=== PATIENT | male | born 1955 | race Two or more races ===

== ENCOUNTER 2020-09-07 09:42 | Outpatient (REF) | payer MEDICARE, MEDICAID, SELFPAY ==
[2020-09-07 10:35] LABS: MANUAL DIFF FLAG NO
[2020-09-07 10:45] LABS: Basophils Percent Auto 0.6 % (0-2); Eosinophils Absolute Auto 0.2 X10*3/uL (0.0-0.4); Eosinophils Percent Auto 3.2 % (0-4); Hematocrit 47.8 % (42-52); Hemoglobin 15.3 g/dl (14.0-18.0); Imm Gran Abs Auto 0.02 X10*3/uL (0.00-0.03); Imm Gran Pct Auto 0.4 % (0.0-0.4); Lymphocytes Absolute Auto 0.9 X10*3/uL (1.2-4.9); Mean Corpuscular Hemoglobin 27.8 pg (27.0-33.0); Mean Corpuscular Volume 86.8 fL (80-98); Mean Platelet Volume 9.9 fL (9.4-12.4); Monocytes Absolute Auto 0.4 X10*3/uL (0.1-1.2); Monocytes Percent Auto 8.2 % (2-11); Neutrophils Absolute Auto 3.9 X10*3/uL (2.0-8.3); Neutrophils Percent Auto 71.6 % (45-73); Platelet Count 168 X10*3/uL (160-400); Red Blood Count 5.51 X10*6/uL (4.60-5.80); Red Cell Distribution Width 12.9 % (11.0-16.0); White Blood Count 5.4 X10*3/uL (4.8-10.8)
[2020-09-07 11:47] LABS: Folate 9.1 ng/mL (> or = 4.0); Vitamin B12 320 pg/mL (200-900)
[2020-09-07 11:58] LABS: Alanine Aminotransferase 17 U/L (0-40); Albumin Level 4.2 g/dL (3.5-5.0); Alkaline Phosphatase 88 U/L (39-117); Anion Gap 13 (12-20); Aspartate Amino Transferase 16 U/L (5-37); Bilirubin Total 0.5 mg/dL (0.0-1.0); Blood Urea Nitrogen 22 mg/dL (9-16); Calcium 9.3 mg/dL (8.4-10.2); Carbon Dioxide 29 mmol/L (22-29); Chloride 105 mmol/L (96-108); Cholesterol 132 mg/dL; Estimated Glomerular Filt Rate > 60; Glucose Random 171 mg/dL (60-115); HDL Cholesterol 51 mg/dL; Iron 68 mcg/dL (45-160); LDL Cholesterol Calculated 66 mg/dl; Percent Iron Saturation 19 % (15-50); Potassium 4.7 mmol/l (3.3-5.1); Sodium 142 mmol/L (135-145); Total Iron Binding Capacity 358 mcg/dL (228-428); Total Protein 6.2 g/dL (6.5-8.0); Triglycerides 76 mg/dL; Unsaturated Iron Binding 290 ug/dL
[2020-09-07 11:59] LABS: Ferritin 10 ng/mL (20-250)
== END 2020-09-07 09:43 | disposition home or self-care (01) ==
LOC: HO.LAB 09:42
PROVIDERS: PCP Internal Medicine; Visit Provider Internal Medicine
DX: E11.9 Type 2 diabetes mellitus without complications (principal); E78.00 Pure hypercholesterolemia, unspecified; D50.9 Iron deficiency anemia, unspecified
CPT/HCPCS: 36415; 80053; 80061; 82607; 82728; 82746; 83540; 85025

== ENCOUNTER 2020-10-27 06:10 | Outpatient (REF) | payer MEDICARE, MEDICAID, SELFPAY ==
[2020-10-27 07:51] LABS: Alanine Aminotransferase 11 U/L (0-40); Albumin Level 4.4 g/dL (3.5-5.0); Alkaline Phosphatase 78 U/L (39-117); Anion Gap 16 (12-20); Aspartate Amino Transferase 14 U/L (5-37); Bilirubin Total 0.6 mg/dL (0.0-1.0); Blood Urea Nitrogen 18 mg/dL (9-16); Calcium 9.1 mg/dL (8.4-10.2); Carbon Dioxide 24 mmol/L (22-29); Chloride 105 mmol/L (96-108); Cholesterol 107 mg/dL; Estimated Glomerular Filt Rate > 60; Glucose Fasting 107 mg/dL (60-99); HDL Cholesterol 48 mg/dL; LDL Cholesterol Calculated 48 mg/dl; Potassium 4.4 mmol/l (3.3-5.1); Sodium 141 mmol/L (135-145); Total Protein 6.6 g/dL (6.5-8.0); Triglycerides 58 mg/dL
[2020-11-01 13:58] LABS: Fructosamine 248 umol/L (205-285)
== END 2020-10-27 06:11 | disposition home or self-care (01) ==
LOC: HO.LAB 06:10
PROVIDERS: PCP Internal Medicine; Visit Provider Internal Medicine Endocrinology, Diabetes & Metabolism
DX: E11.9 Type 2 diabetes mellitus without complications (principal)
CPT/HCPCS: 80053; 80061; 82985

== ENCOUNTER → 2020-10-28 09:48 | Outpatient (BNVA) | payer MEDICARE, MEDICAID, SELFPAY | PROVIDERS: PCP Internal Medicine; Referring Provider Internal Medicine; Visit Provider Internal Medicine Endocrinology, Diabetes & Metabolism | DX: E11.42 Type 2 diabetes mellitus with diabetic polyneuropathy (principal); E11.3299 Type 2 diabetes mellitus with mild nonproliferative diabetic retinopathy without macular edema, unspecified eye; E78.5 Hyperlipidemia, unspecified; E66.9 Obesity, unspecified; I10 Essential (primary) hypertension | CPT/HCPCS: 82947; 99212 ==

== ENCOUNTER → 2021-03-03 08:18 | Outpatient (BNVA) | payer MEDICARE, MEDICAID, SELFPAY | PROVIDERS: PCP Internal Medicine; Visit Provider Internal Medicine Endocrinology, Diabetes & Metabolism | DX: Z13.89 Encounter for screening for other disorder (principal) | CPT/HCPCS: 82947; 99212 ==

== ENCOUNTER 2021-03-03 08:49 | Outpatient (REF) | payer MEDICARE, MEDICAID, SELFPAY ==
[2021-03-03 10:41] LABS: Alanine Aminotransferase 31 U/L (0-40); Albumin Level 4.3 g/dL (3.5-5.0); Alkaline Phosphatase 77 U/L (39-117); Anion Gap 14 (12-20); Aspartate Amino Transferase 27 U/L (5-37); Bilirubin Total 0.6 mg/dL (0.0-1.0); Blood Urea Nitrogen 14 mg/dL (9-16); Calcium 9.1 mg/dL (8.4-10.2); Carbon Dioxide 26 mmol/L (22-29); Chloride 106 mmol/L (96-108); Cholesterol 99 mg/dL; Estimated Glomerular Filt Rate > 60; Glucose Fasting 102 mg/dL (60-99); HDL Cholesterol 45 mg/dL; LDL Cholesterol Calculated 38 mg/dl; Potassium 4.5 mmol/L (3.3-5.1); Sodium 141 mmol/L (135-145); Total Protein 6.3 g/dL (6.5-8.0); Triglycerides 82 mg/dL
[2021-03-03 10:45] LABS: Creatinine Urine 114.52 mg/dL; Microalbum/Creatinine Ratio Ur 31.4 ug/mg cr
[2021-03-03 11:28] LABS: Vitamin B12 262 pg/mL (200-900)
[2021-03-04 05:12] LABS: LDL Cholesterol Direct 37 mg/dL (<100)
== END 2021-03-03 08:50 | disposition home or self-care (01) ==
LOC: HO.10HDL 08:49
PROVIDERS: Absent Provider Internal Medicine; Visit Provider Internal Medicine Endocrinology, Diabetes & Metabolism
DX: I25.10 Atherosclerotic heart disease of native coronary artery without angina pectoris (principal); E78.5 Hyperlipidemia, unspecified; E11.9 Type 2 diabetes mellitus without complications
CPT/HCPCS: 36415; 80053; 80061; 82043; 82607; 82947; 83721; 99212

== ENCOUNTER → 2021-03-08 10:23 | Outpatient (BNVA) | payer MEDICARE, MEDICAID, SELFPAY | PROVIDERS: PCP Internal Medicine; Visit Provider Internal Medicine | DX: G47.33 Obstructive sleep apnea (adult) (pediatric) (principal); E66.9 Obesity, unspecified; I25.10 Atherosclerotic heart disease of native coronary artery without angina pectoris | CPT/HCPCS: 99202 ==

== ENCOUNTER → 2021-05-17 20:20 | Outpatient (REF) | payer MEDICARE, MEDICAID, SELFPAY | LOC: HO.SL 20:20 | PROVIDERS: Visit Provider Internal Medicine | DX: G47.33 Obstructive sleep apnea (adult) (pediatric) (principal) | CPT/HCPCS: 95810 ==

== ENCOUNTER → 2021-05-18 13:23 | Outpatient (BNVA) | payer MEDICARE, MEDICAID, SELFPAY | PROVIDERS: PCP Internal Medicine; Visit Provider Internal Medicine | DX: G47.33 Obstructive sleep apnea (adult) (pediatric) (principal); E66.9 Obesity, unspecified; G25.81 Restless legs syndrome | CPT/HCPCS: 99212 ==

== ENCOUNTER → 2021-06-23 08:55 | Outpatient (BNVA) | payer MEDICARE, MEDICAID, SELFPAY | PROVIDERS: PCP Internal Medicine; Visit Provider Internal Medicine | DX: G47.33 Obstructive sleep apnea (adult) (pediatric) (principal); G25.81 Restless legs syndrome; E66.01 Morbid (severe) obesity due to excess calories | CPT/HCPCS: 99212 ==

== ENCOUNTER 2021-07-26 06:33 | Outpatient (REF) | payer MEDICARE, MEDICAID, SELFPAY ==
[2021-07-26 08:34] LABS: Alanine Aminotransferase 13 U/L (0-40); Albumin Level 4.2 g/dL (3.5-5.0); Alkaline Phosphatase 77 U/L (39-117); Anion Gap 13 (12-20); Aspartate Amino Transferase 14 U/L (5-37); Bilirubin Total 0.4 mg/dL (0.0-1.0); Blood Urea Nitrogen 18 mg/dL (9-16); Calcium 9.3 mg/dL (8.4-10.2); Carbon Dioxide 27 mmol/L (22-29); Chloride 108 mmol/L (96-108); Cholesterol 111 mg/dL; Estimated Glomerular Filt Rate > 60; Glucose Fasting 134 mg/dL (60-99); HDL Cholesterol 49 mg/dL; LDL Cholesterol Calculated 45 mg/dl; Potassium 4.9 mmol/L (3.3-5.1); Sodium 143 mmol/L (135-145); Total Protein 6.2 g/dL (6.5-8.0); Triglycerides 85 mg/dL
[2021-07-26 09:22] LABS: Creatinine Urine 69.41 mg/dL; Microalbumin Urine < 5.0 mg/L
[2021-08-02 13:16] LABS: Vitamin D 25-OH, D2 <4 ng/mL; Vitamin D 25-OH, D3 25 ng/mL; Vitamin D 25-OH, Total 25 ng/mL (30-100)
== END 2021-07-26 06:34 | disposition home or self-care (01) ==
LOC: HO.LAB 06:33
PROVIDERS: PCP Internal Medicine; Visit Provider Internal Medicine
DX: E11.42 Type 2 diabetes mellitus with diabetic polyneuropathy (principal); E78.5 Hyperlipidemia, unspecified; E55.9 Vitamin D deficiency, unspecified
CPT/HCPCS: 36415; 80053; 80061; 82043; 82306

== ENCOUNTER → 2021-11-01 09:21 | Outpatient (BNVA) | payer MEDICARE, MEDICAID, SELFPAY | PROVIDERS: PCP Internal Medicine; Visit Provider Internal Medicine | DX: G47.33 Obstructive sleep apnea (adult) (pediatric) (principal); G25.81 Restless legs syndrome; E66.9 Obesity, unspecified; Z68.32 Body mass index [BMI] 32.0-32.9, adult | CPT/HCPCS: 99212 ==

== ENCOUNTER 2021-11-22 10:20 | Outpatient (REF) | payer MEDICARE, MEDICAID, SELFPAY | END 2021-11-22 10:21 | disposition home or self-care (01) | LOC: HO.HMGCLDS 10:20 | PROVIDERS: Visit Provider Internal Medicine | DX: Z20.822 Contact with and (suspected) exposure to COVID-19 (principal) | CPT/HCPCS: C9803; U0003; U0005 ==

== ENCOUNTER 2022-04-25 07:34 | Outpatient (REF) | payer MEDICARE, MEDICAID, SELFPAY ==
[2022-04-25 07:53] LABS: MANUAL DIFF FLAG NO
[2022-04-25 08:17] LABS: Basophils Percent Auto 0.6 % (0-2); Eosinophils Absolute Auto 0.1 X10*3/uL (0.0-0.4); Eosinophils Percent Auto 2.8 % (0-4); Hematocrit 47.5 % (42.0-52.0); Hemoglobin 14.9 g/dl (14.0-18.0); Imm Gran Abs Auto 0.01 X10*3/uL (0.00-0.03); Imm Gran Pct Auto 0.2 % (0.0-0.4); Lymphocytes Absolute Auto 0.8 X10*3/uL (1.2-4.9); Lymphocytes Percent Auto 17.8 % (20-40); Mean Corpuscular HGB Conc 31.4 g/dl (31.0-36.0); Mean Corpuscular Hemoglobin 25.6 pg (27.0-33.0); Mean Corpuscular Volume 81.5 fL (80.0-98.0); Mean Platelet Volume 9.7 fL (9.4-12.4); Monocytes Absolute Auto 0.4 X10*3/uL (0.1-1.2); Neutrophils Absolute Auto 3.3 x10*3/uL (2.0-8.3); Neutrophils Percent Auto 69.6 % (45-73); Platelet Count 211 X10*3/uL (160-400); Red Blood Count 5.83 X10*6/uL (4.60-5.80); Red Cell Distribution Width 13.5 % (11.0-16.0); White Blood Count 4.7 X10*3/uL (4.8-10.8)
[2022-04-25 08:40] LABS: Alanine Aminotransferase 15 U/L (0-40); Albumin Level 4.2 g/dL (3.5-5.0); Alkaline Phosphatase 86 U/L (39-117); Anion Gap 11 (12-20); Aspartate Amino Transferase 16 U/L (5-37); Bilirubin Total 0.5 mg/dL (0.0-1.0); Blood Urea Nitrogen 19 mg/dL (9-16); Calcium 9.2 mg/dL (8.4-10.2); Carbon Dioxide 28 mmol/L (22-29); Chloride 107 mmol/L (96-108); Cholesterol 172 mg/dL; Estimated Glomerular Filt Rate > 60; Glucose Fasting 171 mg/dL (60-99); HDL Cholesterol 53 mg/dL; Iron 50 mcg/dL (45-160); LDL Cholesterol Calculated 99 mg/dl; Percent Iron Saturation 13 % (15-50); Potassium 4.6 mmol/L (3.3-5.1); Sodium 141 mmol/L (135-145); Total Iron Binding Capacity 396 mcg/dL (228-428); Total Protein 6.5 g/dL (6.5-8.0); Triglycerides 102 mg/dL; Unsaturated Iron Binding 346 ug/dL
[2022-04-25 08:59] LABS: Creatinine Urine 68.19 mg/dL; Microalbum/Creatinine Ratio Ur 7.3 ug/mg cr
[2022-04-30 13:51] LABS: Vitamin D 25-OH, D2 <4 ng/mL; Vitamin D 25-OH, D3 22 ng/mL; Vitamin D 25-OH, Total 22 ng/mL (30-100)
== END 2022-04-25 07:35 | disposition home or self-care (01) ==
LOC: HO.LAB 07:34
PROVIDERS: PCP Internal Medicine; Visit Provider Internal Medicine
DX: E11.42 Type 2 diabetes mellitus with diabetic polyneuropathy (principal); E55.9 Vitamin D deficiency, unspecified; E78.5 Hyperlipidemia, unspecified; D64.9 Anemia, unspecified
CPT/HCPCS: 36415; 80053; 80061; 82043; 82306; 83540; 85025

== ENCOUNTER → 2022-06-13 09:45 | Outpatient (BNVA) | payer MEDICARE, MEDICAID, SELFPAY | PROVIDERS: PCP Internal Medicine; Visit Provider Internal Medicine | DX: G47.33 Obstructive sleep apnea (adult) (pediatric) (principal); G25.81 Restless legs syndrome; E66.9 Obesity, unspecified; Z68.32 Body mass index [BMI] 32.0-32.9, adult; Z79.899 Other long term (current) drug therapy | CPT/HCPCS: 99212 ==

== ENCOUNTER → 2022-12-12 10:10 | Outpatient (BNVA) | payer MEDICARE, MEDICAID, SELFPAY | PROVIDERS: PCP Internal Medicine; Visit Provider Internal Medicine | DX: G47.33 Obstructive sleep apnea (adult) (pediatric) (principal); G25.81 Restless legs syndrome; E66.9 Obesity, unspecified; Z68.32 Body mass index [BMI] 32.0-32.9, adult | CPT/HCPCS: 99212 ==

== ENCOUNTER 2023-04-17 06:33 | Outpatient (REF) | payer MEDICARE, MEDICAID, SELFPAY ==
[2023-04-17 07:56] LABS: Alanine Aminotransferase 13 U/L (0-40); Albumin Level 4.1 g/dL (3.5-5.0); Alkaline Phosphatase 77 U/L (39-117); Anion Gap 9 (12-20); Aspartate Amino Transferase 13 U/L (5-37); Bilirubin Total 0.6 mg/dL (0.0-1.0); Blood Urea Nitrogen 18 mg/dL (9-16); Calcium 9.5 mg/dL (8.4-10.2); Carbon Dioxide 30 mmol/L (22-29); Chloride 107 mmol/L (96-108); Cholesterol 179 mg/dL; Estimated Glomerular Filt Rate > 60; Glucose Fasting 185 mg/dL (60-99); HDL Cholesterol 53 mg/dL; LDL Cholesterol Calculated 95 mg/dl; Potassium 4.1 mmol/L (3.3-5.1); Sodium 142 mmol/L (135-145); Total Protein 6.1 g/dL (6.5-8.0); Triglycerides 157 mg/dL
[2023-04-17 09:42] LABS: Microalbumin Urine < 5.0 mg/L
== END 2023-04-17 06:34 | disposition home or self-care (01) ==
LOC: HO.LAB 06:33
PROVIDERS: PCP Internal Medicine; Visit Provider Internal Medicine
DX: E11.42 Type 2 diabetes mellitus with diabetic polyneuropathy (principal); E78.5 Hyperlipidemia, unspecified
CPT/HCPCS: 36415; 80053; 80061; 82043

== ENCOUNTER 2023-05-01 15:05 | Outpatient (REF) | payer MEDICARE, MEDICAID, SELFPAY ==
--- NOTE | ~2023-05-01 | XR_ITS ---
EXAMINATION: XR FOOT, LEFT CLINICAL INFORMATION: Pain COMPARISON: Previous x-ray April 2018 TECHNIQUE: AP, lateral, and oblique views of the left foot. FINDINGS: Bone alignment is normal. No fracture or dislocation. Mild osteoarthritis at the first MTP joint with joint space narrowing and osteophyte formation. Joint spaces are otherwise normal. Small calcaneal spur. Soft tissue arterial calcification. XR/XR foot LT 2V IMPRESSION: Mild osteoarthritis at the first MTP joint and calcaneal spur.
== END 2023-05-01 15:06 | disposition home or self-care (01) ==
LOC: HO.XRAY 15:05
PROVIDERS: PCP Internal Medicine; Visit Provider Internal Medicine
DX: M79.672 Pain in left foot (principal)
CPT/HCPCS: 73620

== ENCOUNTER 2023-08-02 14:04 | Outpatient (AMB) | payer MEDICARE, MEDICAID, SELFPAY ==
[2023-08-02 14:18] VITALS: BP 120/64; PULSE 62; O2SAT 99; BMI 32.1
--- NOTE | 2023-08-02 14:18 | A.OFFVIS_ITS ---
Intake Vital Signs 08/02/23 14:18 Height 5 ft 6 in Weight 199 lb BMI 32.1 BP 120/64 Blood Pressure Location Lt brachial Position Sitting Pulse 62 Pulse Source Pulse Oximeter Pulse Oximetry (%) 99 Oxygen Delivery Method Room Air Intake Visit Reasons: Obstructive sleep apnea Intake Note: pt is here for follow up and states he is doing well. 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: No Allergies No Known Allergies [No Known Allergies*] Allergy (Verified 08/02/23 14:29) Medication List - Last Reconciled 08/02/23 by Oj Moreland MD aspirin 81 mg PO DAILY atorvastatin 80 mg PO DAILY 90 days blood sugar diagnostic ([employer] Ultra Test strips) Test Daily 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 meter ([employer] Ultra2 Meter) As directed cholecalciferol (vitamin D3) 25 mcg PO DAILY 90 days cholecalciferol (vitamin D3) 50 mcg PO DAILY 90 days CPAP (CPAP Machine/Device) As directed docusate sodium 100 mg PO DAILY 90 days dulaglutide (Trulicity) 3 mg (0.5 mL) subcut QWEEK 90 days empagliflozin (Jardiance) 25 mg PO DAILY 90 days ezetimibe 10 mg PO DAILY 90 days gabapentin 100 mg PO TID lancets (OneTouch Delica Lancets) As directed daily lisinopril 20 mg PO DAILY 90 days metformin 1,000 mg PO BID 90 days metoprolol tartrate 50 mg PO BID Do you need a note to return to daycare/school/sports/work: No HPI Obstructive sleep apnea HPI Details 68 YEARS OLD VERY PLEASANT GENTLEMAN IS A CASE OF OBSTRUCTIVE SLEEP APNEA. HE IS HERE FOR HIS ROUTINE FOLLOW-UP. HE USES HIS CPAP VERY REGULARLY EVERY NIGHT. HE TENDS TO WAKE AFTER ABOUT 5 HOURS OF SLEEP BECAUSE HE CANNOT LIE ON HIS BACK FOR TOO LONG. HE HAS NO ISSUE WITH THE FULLFACE MASK THAT HE USES AND OR WITH THE CPAP MACHINE. HE FEELS REFRESHED AND DENIES ANY DAYTIME SLEEPINESS. . WEIGHT HAS REMAINED STABLE [facility] Medical History Encounter for Medicare annual wellness exam Restless leg syndrome IVA (obstructive sleep apnea) Obesity (BMI 30-39.9) CAD (coronary artery disease) Dyslipidemia Diabetic polyneuropathy associated with type 2 diabetes mellitus Mild non proliferative diabetic retinopathy Essential hypertension Diabetes mellitus GERD (gastroesophageal reflux disease) Sleep apnea CVA (cerebral vascular accident) Surgical History History of angioplasty History of carpal tunnel release Hx of CABG History of surgery Family History Father Stroke Mother Hypertension Maternal Grandmother Ovarian cancer Maternal Aunt Ovarian cancer Brother Colon cancer Social History Housing: Apartment Alcohol intake: current Alcohol intake frequency: a few times a month Alcohol type: beer Patient Tobacco Use Status: Never used Tobacco e-Cigarette/Vaping Use: Never Used Second Hand Smoke Exposure: No service: No Current occupational status: retired Review of Systems Const All systems reviewed & are unremarkable except as noted in HPI and below Eyes Reports no additional complaints ENT Reports no additional complaints Card Reports no additional complaints Resp Reports no additional complaints GI Reports no additional complaints Reports no additional complaints Musc Reports no additional complaints Skin/Breast Reports system reviewed and no additional complaints, except as documented Neuro Reports no additional complaints Psych Reports no additional complaints Physical Exam Vital Signs: Last Vital Signs Pulse 62 08/02/23 14:18 BP 120/64 08/02/23 14:18 Pulse Ox 99 08/02/23 14:18 Oxygen Delivery Method Room Air 08/02/23 14:18 BMI result Body Mass Index 32.1 Const General: healthy appearing, comfortable, no acute distress, alert and awake Orientation/consciousness: patient oriented x3 HEENT Head: Yes normal to inspection General nose exam: No nasal polyps present and No nasal discharge present Face and sinus: Yes sinuses nontender Mouth: oropharynx normal Throat: Yes posterior oropharynx normal Eyes General: appearance normal, both eyes and all related structures Neck Neck: Yes normal visual inspection, Yes no lymphadenopathy, Yes trachea midline and Yes no JVD Thyroid: Thyroid normal Chest Chest palpation & inspection: normal inspection of the chest, normal palpation of entire chest wall and no tenderness Resp Effort & Inspection: normal respiratory effort Auscultation: clear to auscultation bilaterally Percussion: percussion normal Cardio Palpation: normal PMI Rate: regular rate Rhythm: regular rhythm Heart sounds: no gallops and no murmurs GI Palpation (GI): Soft to palpation, nontender, No hepatosplenomegaly present and no masses Auscultation: normal bowel sounds Back/Spine/Pelvis Thoracic/Lumbar Spine: thoracic and lumbar spine normal to inspection Skin General skin exam: no rashes or lesions noted Neuro General: patient oriented x3 and no focal motor deficits Cranial nerves: Yes CN's II-XII intact bilaterally Extrem General: Yes normal to inspection, Yes no clubbing, cyanosis or edema and Yes no calf tenderness Psych Appearance: grossly normal and well kempt Speech and movement: Normal speech and movement present Results Reviewed Results Reviewed: COMPLIANCE REPORT FOR THE LAST 30 NIGHTS IS REVIEWED. HE HAS USED 30/30 NIGHTS, 100%. AVERAGE USE PER NIGHT 5 HOURS 31 MINUTES. HE HAS A MILD AIR LEAK ISSUE, RESIDUAL AHI 3.3 Assessment & Plan Assessment & Plan (1) Obesity (BMI 30-39.9): Comment: CURRENTLY HIS WEIGHT IS AT A STANDSTILL. TALKED TO HIM AND ADVISED THAT HE SHOULD FOLLOW HIS DIET AND DO DAILY EXERCISE. Code(s): E66.9 - Obesity, unspecified (2) IVA (obstructive sleep apnea): Comment: *He has well established diagnosis of obstructive sleep apnea since 30 years ago. Has been successfully treated with application of CPAP at night. HE IS USING HIS NEW CPAP MACHINE REGULARLY PRESSURE SETTING AUTO PAP MODE 6-20 CM . COMPLIANCE IS EXCELLENT AND HE DEFINITELY BENEFITS FROM THE USE. NASAL MASK, ADVISED TO CONTINUE TO USE THE CPAP REGULARLY AND WILL BE RE-EVALUATED IN 6 MONTHS. ALSO ADVISED TO WATCH HIS WEIGHT, AND LOSE ABOUT 5-10 LB IF POSSIBLE. Code(s): G47.33 - Obstructive sleep apnea (adult) (pediatric) (3) Restless leg syndrome: Comment: He does have periodic limb movement disorder, but PLM related arousal index is only 5.8 .This is sec to Peripheral Neuropathy . Patient is on gabapentin 100 mg t.i.d. for his neuropathy AND IT HELPS TO KEEP HIS THE RESTLESS LEG SYNDROME UNDER CONTROL. Code(s): G25.81 - Restless legs syndrome Coding Level of Care Code Est Pt Level 3 (94299) Diagnoses Obesity (BMI 30-39.9) E66.9 IVA (obstructive sleep apnea) G47.33 Restless leg syndrome G25.81
== END 2023-08-02 14:35 | disposition home or self-care (01) ==
PROVIDERS: PCP Internal Medicine; Visit Provider Internal Medicine
DX: E66.9 Obesity, unspecified (principal); G47.33 Obstructive sleep apnea (adult) (pediatric); G25.81 Restless legs syndrome
CPT/HCPCS: 99213

== ENCOUNTER → 2023-08-02 14:04 | Outpatient (BNVA) | payer MEDICARE, MEDICAID, SELFPAY | PROVIDERS: PCP Internal Medicine; Visit Provider Internal Medicine | DX: E66.9 Obesity, unspecified (principal); Z68.32 Body mass index [BMI] 32.0-32.9, adult; G47.33 Obstructive sleep apnea (adult) (pediatric); G25.81 Restless legs syndrome | CPT/HCPCS: 99212 ==

== ENCOUNTER → 2023-08-29 09:50 | Outpatient (BNVA) | payer MEDICARE, MEDICAID, SELFPAY | PROVIDERS: PCP Internal Medicine; Visit Provider Nurse Practitioner Family ==

== ENCOUNTER 2023-12-27 15:24 | Outpatient (AMB) | payer MEDICARE, SELFPAY ==
[2023-12-27 15:37] VITALS: BP 132/82; BMI 31.6
--- NOTE | 2023-12-27 15:37 | A.OFFPC_ITS ---
Vital Signs 12/27/23 15:37 Height 5 ft 6 in Weight 196 lb BMI 31.6 BP 132/82 Blood Pressure Location Lt brachial Position Sitting Intake Visit Reasons: dm Intake Note: Patient here for a follow up DM [employer] Processing Required: No Accompanied by: Spouse Allergies No Known Allergies [No Known Allergies*] Allergy (Verified 12/27/23 15:49) Medication List - Last Reconciled 12/27/23 by Netta Zamora MD aspirin 81 mg PO DAILY atorvastatin 80 mg PO DAILY 90 days blood sugar diagnostic ([employer] Ultra Test strips) Test Daily 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 meter ([employer] Ultra2 Meter) As directed cholecalciferol (vitamin D3) 25 mcg PO DAILY 90 days cholecalciferol (vitamin D3) 50 mcg PO DAILY 90 days CPAP (CPAP Machine/Device) As directed docusate sodium 100 mg PO DAILY 90 days dulaglutide (Trulicity) 3 mg (0.5 mL) subcut QWEEK 90 days empagliflozin (Jardiance) 25 mg PO DAILY 90 days ezetimibe 10 mg PO DAILY 90 days gabapentin 100 mg PO TID lancets ([employer] Delica Lancets) As directed daily lisinopril 20 mg PO DAILY 90 days metformin 1,000 mg PO BID 90 days metoprolol tartrate 50 mg PO BID Tobacco use date assessed: 12/27/23 Fall risk assessment: 1 Fall in past year Last assessed Fall Risk: 12/27/23 Dental Screening Dental Screen Date: 12/27/23 Did you have a dental visit in the last 12 months?: No Did you have a dental problem in the last 6 months where you did not have access to dental care?: No Was dental information given to patient?: Patient has dentist HPI HPI Comments History of Present Illness Details This is a 68-year-old male with diabetes mellitus type 2, hypertension, hyperlipidemia and GERD that comes accompanied by for follow-up on his conditions. A1c elevated and I will increase Trulicity. Blood pressure stable. Last LDL was not on goal and this will be repeated. GERD stable with PPIs. No chest pain or shortness of breath. [facility] Medical History Encounter for Medicare annual wellness exam Restless leg syndrome IVA (obstructive sleep apnea) Obesity (BMI 30-39.9) CAD (coronary artery disease) Dyslipidemia Diabetic polyneuropathy associated with type 2 diabetes mellitus Mild non proliferative diabetic retinopathy Essential hypertension Diabetes mellitus GERD (gastroesophageal reflux disease) Sleep apnea CVA (cerebral vascular accident) Surgical History History of angioplasty History of carpal tunnel release Hx of CABG History of surgery Family History Father Stroke Mother Hypertension Maternal Grandmother Ovarian cancer Maternal Aunt Ovarian cancer Brother Colon cancer Social History Housing: Apartment Alcohol intake: current Alcohol intake frequency: a few times a month Alcohol type: beer Patient Tobacco Use Status: Never used Tobacco e-Cigarette/Vaping Use: Never Used Second Hand Smoke Exposure: No service: No Current occupational status: retired Cognitive needs: No Hearing needs: No Vision needs: No Questionnaire PHQ-9 Over the last 2 weeks, how often have you been bothered by any of the following problems? 1. Little interest or pleasure in doing things: not at all 2. Feeling down, depressed, or hopeless: not at all 3. Trouble falling or staying asleep, or sleeping too much: not at all 4. Feeling tired or having little energy: not at all 5. Poor appetite or overeating: not at all 6. Feeling bad about yourself - or that you are a failure or have let yourself or your family down: not at all 7. Trouble concentrating on things, such as reading the newspaper or watching television: not at all 8. Moving or speaking so slowly that other people could have noticed. Or the opposite - being so fidgety or restless that you have been moving around a lot more than usual: not at all 9. Thoughts that you would be better off or of hurting yourself in some way: not at all Total score: 0 Depression Screening Interpretation: Negative Depression Screening Done: Yes 73024 - PHQ-9 Billing: Yes Source: Developed by Drs. Pete Hampton, Tamiko Zhao, Edd Cuenca and colleagues, with an educational bartolome from [employer]. Thrive Questionnaire Date Thrive assessed: 12/27/23 I am a: Patient What is your living situation today?: I have a steady place to live Within the past 12 months, did the food you bought not last and you didn't have the money to get more?: Never true Within the past 12 months, did you worry whether your food would run out before you got money to buy more?: Never true Do you have trouble paying for medicines?: No Do you have trouble getting transportation to medical appointments?: No Do you have trouble paying your heating and electricity bill?: No Do you have trouble taking care of your child, family member or friend?: No Do you have trouble with day-to-day activities such as bathing, preparing meals, shopping, managing finances, etc.?: No Are you currently unemployed and looking for a job?: No Are you interested in more education?: No Please select the resources that you would like help with: None Currently or been in a relationship where the following occur: no concerns reported THRIVE Score: 0 AUDIT C Alcohol Use Questionnaire (AUDIT-C) 1. How often do you have a drink containing alcohol?: Monthly or less 2. How many drinks containing alcohol do you have on a typical day when you are drinking?: 1 or 2 3. How often do you have six or more drinks on one occasion?: Never Total Score: 1 NICKI-7 AMB Questionnaire NICKI-7 Date NICKI - 7 assessed: 12/27/23 Feeling nervous, anxious, or on edge: 0 = Not at all Not being able to stop or control worryin = Not at all Worrying too much about different things: 0 = Not at all Trouble relaxin = Not at all Being so restless that it is hard to sit still: 0 = Not at all Becoming easily annoyed or irritable: 0 = Not at all Feeling afraid as if something awful might happen: 0 = Not at all Total NICKI-7 score (0-4 normal; 5-9 mild; 10-14 moderate; 15-21 severe): 0 Source: Developed by Drs. Pete Hampton, Tamiko Zhao, Edd Cuenca and colleagues, with an educational bartolome from [employer]. NICKI-7 Assessment Billing NICKI-7 Assessment Tool: NICKI-7 Assessment 95956 Review of Systems Const All systems reviewed & are unremarkable except as noted in HPI and below Eyes Reports no additional complaints, Denies change in vision and Denies other visual disturbances Card Denies chest pain at rest, Denies chest pain with activity, Denies edema, Denies irregular heart rhythm, Denies claudication, Denies dyspnea, Denies dyspnea on exertion, Denies orthopnea, Denies paroxysmal nocturnal dyspnea and Denies slow heart rate Resp Denies cough, Denies dyspnea and Denies dyspnea on exertion GI Denies abdominal pain, Denies change in bowel habits, Denies excessive flatus, Denies nausea and Denies vomiting Denies urinary hesitancy, Denies urinary incontinence and Denies urinary urgency Musc Denies abnormal gait, Denies atrophy, Denies deformity and Denies limited range of motion Skin/Breast Denies bleeding lesions, Denies changing lesions and Denies rash Neuro Denies abnormal gait, Denies behavioral changes and Denies lack of coordination Psych Denies behavioral changes Physical exam (Primary Care) Vital Signs: Last Vital Signs BP 132/82 12/27/23 15:37 BMI result Body Mass Index 31.6 Tobacco/Smoking Status: Tobacco use Status Tobacco use date assessed 12/27/23 12/27/23 15:41 Patient Tobacco Use Status Never used Tobacco 12/27/23 15:41 e-Cigarette/Vaping Use Never Used 12/27/23 15:41 PHQ-9: PHQ-9 Score PHQ-9: Total score 0 12/27/23 15:58 Depression Screening Interpretation: Negative Thrive Assessment: Date of Thrive Assessment Date Thrive assessed 12/27/23 12/27/23 15:41 Currently or been in a relationship where the following occur: no concerns reported Eyes General: appearance normal, both eyes and all related structures Eyelids: Yes eyelids normal Conjunctivae: conjunctivae normal Neck Neck: Yes normal visual inspection and Yes supple Resp Effort & Inspection: normal respiratory effort Auscultation: clear to auscultation bilaterally Cardio Jugular venous distension: no JVD Rate: regular rate Rhythm: regular rhythm Heart sounds: S1 normal heart sound present and S2 normal heart sound present Extrem General: Yes full ROM Results AMB Hemoglobin A1c AMB Hemoglobin A1c 9.0 % Last Edit by LISE Hoffman on 12/27/23 15:5 5 Results Reviewed Results Reviewed: Laboratory Last Values Hgb A1c (Clinic) 9.0 % (4.0-6.0) H 12/27/23 15:54 Assessment and Plan Assessment & Plan (1) Essential hypertension: Code(s): I10 - Essential (primary) hypertension Plan: Continue lisinopril. Blood pressure goal is equal or less than 130/80. (2) Dyslipidemia: Code(s): E78.5 - Hyperlipidemia, unspecified Plan: Continue statins. Repeat lipid panel. LDL goal is less than 70. 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 A1c goal is equal or less than 7%. (4) GERD (gastroesophageal reflux disease): Code(s): K21.9 - Gastro-esophageal reflux disease without esophagitis Qualifiers: Esophagitis presence: esophagitis presence not specified Qualified Code(s): K21.9 - Gastro-esophageal reflux disease without esophagitis Plan: Continue PPIs. Orders: Orders AMB Hemoglobin A1c 12/27/23 E11.9 - Type 2 diabetes mellitus without complications Microalbumin, Random (w Creat) 12/27/23 E11.9 - Type 2 diabetes mellitus without complications Vitamin D 25-OH Total 12/27/23 E55.9 - Vitamin D deficiency, unspecified Comprehensive [place]. Panel Fast 12/27/23 I25.10 - Atherosclerotic heart disease of [place] coronary artery without angina pectoris Lipid Panel 12/27/23 E78.5 - Hyperlipidemia, unspecified Medications: New dulaglutide (Trulicity) 4.5 mg (0.5 mL) subcut QWEEK 90 days 6.5 mL 1RF E11.9 - Type 2 diabetes mellitus without complications Changed From aspirin 81 mg PO DAILY To aspirin 81 mg PO DAILY 90 days 90 tabs 1RF Refilled cholecalciferol (vitamin D3) 50 mcg PO DAILY 90 days 90 caps 1RF metformin 1,000 mg PO BID 90 days 180 tabs 1RF E11.9 - Type 2 diabetes mellitus without complications empagliflozin (Jardiance) 25 mg PO DAILY 90 days 90 tabs 1RF E11.9 - Type 2 diabetes mellitus without complications Discontinued dulaglutide (Trulicity) Discontinued Reason: Patient Completed Course 3 mg (0.5 mL) subcut QWEEK 90 days 6.5 mL 3RF Coding Level of Care Code Est Pt Level 4 (37958) Diagnoses Essential hypertension I10 Dyslipidemia E78.5 Type 2 diabetes mellitus without complication, without long-term current use of insulin E11.9 Diabetes mellitus type: type 2 Diabetes mellitus fpc insulin use: without fpc use Diabetes mellitus complication status: without complication Gastroesophageal reflux disease, unspecified whether esophagitis present K21.9 Esophagitis presence: esophagitis presence not specified Additional Codes NICKI-7 Assessment Billing - NICKI-7 Assessment Tool: NICKI-7 Assessment [id number] ([id number]) Time Spent (min) 23
== END 2023-12-27 16:02 | disposition home or self-care (01) ==
PROVIDERS: PCP Internal Medicine; Visit Provider Internal Medicine
DX: E11.9 Type 2 diabetes mellitus without complications (principal)
CPT/HCPCS: 83036; 99214

== ENCOUNTER 2023-12-31 12:42 | Outpatient (AMB) | payer OTHER, SELFPAY ==
[2023-12-31 13:44] VITALS: BP 150/88; PULSE 93; TEMP 36.7; O2SAT 96; BMI 31.0
--- NOTE | 2023-12-31 13:44 | AM.OFFWIN_ITS ---
Intake Vital Signs 12/31/23 13:44 Height 5 ft 6 in Weight 192 lb BMI 31.0 BP 150/88 H Blood Pressure Location Lt brachial Position Sitting Pulse 93 Pulse Source Pulse Oximeter Temp 98.0 F Temp Source Temporal Artery Scan Pulse Oximetry (%) 96 Oxygen Delivery Method Room Air Intake Visit Reasons: EST/ head ache and fever([phone]) Intake Note: pt is here today for ache and fever started Sunday Patient Tobacco Use Status: Never used Tobacco Allergies No Known Allergies [No Known Allergies*] Allergy (Verified 12/31/23 13:45) Do you need a note to return to daycare/school/sports/work: Yes HPI HPI Comments History of Present Illness Details Patient presents to the walk in for 3 days cough, congestion, headache, bodyaches. was sick with same Denies fevers but felt like he had fever yesterday Denies chest pain, shortness of breath, palpitations, syncope, weakness Denies ear pain, sore throat. states cough is productive of clear sputum coughing will induce vomiting. tolerating po fluids, drinking plenty of water blood glucose this morning was normal has coughed until he vomited a couple times over the last 2 days. denies nausea and is not vomiting otherwise, only when cough induced. Called out sick from work, requesting work note [facility] Medical History Encounter for Medicare annual wellness exam Restless leg syndrome IVA (obstructive sleep apnea) Obesity (BMI 30-39.9) CAD (coronary artery disease) Dyslipidemia Diabetic polyneuropathy associated with type 2 diabetes mellitus Mild non proliferative diabetic retinopathy Essential hypertension Diabetes mellitus GERD (gastroesophageal reflux disease) Sleep apnea CVA (cerebral vascular accident) Surgical History History of angioplasty History of carpal tunnel release Hx of CABG History of surgery Family History Father Stroke Mother Hypertension Maternal Grandmother Ovarian cancer Maternal Aunt Ovarian cancer Brother Colon cancer Social History Housing: Apartment Alcohol intake: current Alcohol intake frequency: a few times a month Alcohol type: beer Patient Tobacco Use Status: Never used Tobacco e-Cigarette/Vaping Use: Never Used Second Hand Smoke Exposure: No service: No Current occupational status: retired Cognitive needs: No Hearing needs: No Vision needs: No Review of Systems Const All systems reviewed & are unremarkable except as noted in HPI and below Physical Exam Vital Signs: Last Vital Signs Temp 98.0 F 12/31/23 13:44 Pulse 93 12/31/23 13:44 BP 150/88 H 12/31/23 13:44 Pulse Ox 96 12/31/23 13:44 Oxygen Delivery Method Room Air 12/31/23 13:44 BMI result Body Mass Index 31.0 General: awake, alert, oriented. Answers questions appropriately. Fully engaged in examination. Skin: warm, dry, intact HEENT: TMs intact bilaterally, without erythema or exudate. Posterior pharynx without erythema or exudate. Sclera without icterus or injection. no tenderness over maxillary or frontal sinuses Cardiac: External chest normal in appearance. Respiratory: + dry cough. LSCTAB. Abdomen: without gross distension. Neurological: Oriented to person, place, time and situation. Thought process int act. Psychiatric: Appropriate mood and affect. Good judgment and insight. Assessment & Plan Assessment & Plan (1) URI (upper respiratory infection): Code(s): J06.9 - Acute upper respiratory infection, unspecified Plan URI, no abx warranted. SARS-CoV2/FLU/RSV swab collected, results pending. Patient aware he will be called with results. Benzonatate 100mg po bid as needed Rest, drink plenty of fluids, tylenol as needed. work note provided Follow up with pcp or in clinic for any new or worsening symptoms. Go to ER for intractable vomiting, shortness of breath, chest pain, palpitations, weakness, dizziness. Orders: Orders SARS-CoV2/FLU/RSV Today J06.9 - Acute upper respiratory infection, unspecified Medications: New benzonatate 100 mg PO BID PRN 20 caps 0RF cough Coding Level of Care Code Est Pt Level 4 (50024) Diagnoses URI (upper respiratory infection) J06.9
== END 2023-12-31 14:37 | disposition home or self-care (01) ==
PROVIDERS: PCP Internal Medicine; Visit Provider Registered Nurse Emergency
DX: J06.9 Acute upper respiratory infection, unspecified (principal)
CPT/HCPCS: 99213

== ENCOUNTER 2023-12-31 14:13 | Outpatient (REF) | payer OTHER, SELFPAY ==
[2023-12-31 17:55] LABS: Influenza A PCR NEGATIVE (Negative); Influenza B PCR NEGATIVE (Negative); Resp Syncy Virus RNA Qual PCR NEGATIVE (Negative); SARS COV2 PCR INHOUSE POSITIVE (Negative)
== END 2023-12-31 14:14 | disposition home or self-care (01) ==
LOC: HO.LAB 14:13
PROVIDERS: Visit Provider Registered Nurse Emergency
DX: Z11.52 Encounter for screening for COVID-19 (principal); Z20.822 Contact with and (suspected) exposure to COVID-19; J06.9 Acute upper respiratory infection, unspecified
CPT/HCPCS: 0241U

== ENCOUNTER 2024-02-05 15:36 | Outpatient (AMB) | payer MEDICARE, SELFPAY ==
[2024-02-05 15:44] VITALS: BP 110/70; PULSE 86; O2SAT 97; BMI 31.1
--- NOTE | 2024-02-05 15:44 | MHC.OFFVIS ---
Intake Vital Signs 02/05/24 15:44 Height 5 ft 6 in Weight 192 lb 14.472 oz BMI 31.1 BP 110/70 Blood Pressure Location Lt brachial Position Sitting Pulse 86 Pulse Source Pulse Oximeter Pulse Oximetry (%) 97 Oxygen Delivery Method Room Air Intake Visit Reasons: Obstructive sleep apnea Intake Note: pt is here for follow up and states he is feeling good, cpap is good. Deburring Technician Required: No Allergies No Known Allergies [No Known Allergies*] Allergy (Verified 02/05/24 16:01) Medication List - Last Reconciled 02/05/24 by Oj Moreland MD aspirin 81 mg PO DAILY 90 days atorvastatin 80 mg PO DAILY 90 days benzonatate 100 mg PO BID PRN blood sugar diagnostic (Talkpush Ultra Test strips) Test Daily 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 meter (Talkpush Ultra2 Meter) As directed cholecalciferol (vitamin D3) 50 mcg PO DAILY 90 days CPAP (CPAP Machine/Device) As directed dulaglutide (Trulicity) 4.5 mg (0.5 mL) subcut QWEEK 90 days empagliflozin (Jardiance) 25 mg PO DAILY 90 days ezetimibe 10 mg PO DAILY 90 days gabapentin 100 mg PO TID lancets (Mis DescuentosTouch Delica Lancets) As directed daily lisinopril 20 mg PO DAILY 90 days metformin 1,000 mg PO BID 90 days metoprolol tartrate 50 mg PO BID HPI Obstructive sleep apnea HPI Details MARTY IS 68 YEARS OLD GENTLEMAN MODERATELY OBESE WITH DIAGNOSIS OF OBSTRUCTIVE SLEEP APNEA. HE IS HERE FOR 6 MONTHS FOLLOW-UP. HE IS VERY HAPPY WITH HIS CPAP DEVICE AND USES IT EVERY NIGHT WITHOUT ANY ISSUE. HE SLEEPS GOOD AT LEAST FOR 6 HOURS PER NIGHT. DENIES ANY RESTLESS LEGS SYNDROME. HE CONTINUES TO TAKE GABAPENTIN 100 MG T.I.D. FOR HIS PERIPHERAL NEUROPATHY. WEIGHT HAS NOT CHANGED MUCH. [facility] Medical History Encounter for Medicare annual wellness exam Restless leg syndrome IVA (obstructive sleep apnea) Obesity (BMI 30-39.9) CAD (coronary artery disease) Dyslipidemia Diabetic polyneuropathy associated with type 2 diabetes mellitus Mild non proliferative diabetic retinopathy Essential hypertension Diabetes mellitus GERD (gastroesophageal reflux disease) Sleep apnea CVA (cerebral vascular accident) Surgical History History of angioplasty History of carpal tunnel release Hx of CABG History of surgery Family History Father Stroke Mother Hypertension Maternal Grandmother Ovarian cancer Maternal Aunt Ovarian cancer Brother Colon cancer Social History Housing: Apartment Alcohol intake: current Alcohol intake frequency: a few times a month Alcohol type: beer Patient Tobacco Use Status: Never used Tobacco e-Cigarette/Vaping Use: Never Used Second Hand Smoke Exposure: No service: No Current occupational status: retired Cognitive needs: No Hearing needs: No Vision needs: No Review of Systems Const All systems reviewed & are unremarkable except as noted in HPI and below Eyes Reports no additional complaints ENT Reports no additional complaints Card Reports no additional complaints Resp Reports no additional complaints GI Reports no additional complaints Reports no additional complaints Musc Reports no additional complaints Skin/Breast Reports system reviewed and no additional complaints, except as documented Neuro Reports no additional complaints Psych Reports no additional complaints Physical Exam Vital Signs: Last Vital Signs Pulse 86 02/05/24 15:44 BP 110/70 02/05/24 15:44 Pulse Ox 97 02/05/24 15:44 Oxygen Delivery Method Room Air 02/05/24 15:44 BMI result Body Mass Index 31.1 Const General: healthy appearing, comfortable, no acute distress, alert and awake Orientation/consciousness: patient oriented x3 HEENT Head: Yes normal to inspection General nose exam: No nasal polyps present and No nasal discharge present Face and sinus: Yes sinuses nontender Mouth: oropharynx normal Throat: Yes posterior oropharynx normal Eyes General: appearance normal, both eyes and all related structures Neck Neck: Yes normal visual inspection, Yes no lymphadenopathy, Yes trachea midline and Yes no JVD Thyroid: Thyroid normal Chest Chest palpation & inspection: normal inspection of the chest, normal palpation of entire chest wall and no tenderness Resp Effort & Inspection: normal respiratory effort Auscultation: clear to auscultation bilaterally Percussion: percussion normal Cardio Palpation: normal PMI Rate: regular rate Rhythm: regular rhythm Heart sounds: no gallops and no murmurs GI Palpation (GI): Soft to palpation, nontender, No hepatosplenomegaly present and no masses Auscultation: normal bowel sounds Back/Spine/Pelvis Thoracic/Lumbar Spine: thoracic and lumbar spine normal to inspection Skin General skin exam: no rashes or lesions noted Neuro General: patient oriented x3 and no focal motor deficits Cranial nerves: Yes CN's II-XII intact bilaterally Extrem General: Yes normal to inspection, Yes no clubbing, cyanosis or edema and Yes no calf tenderness Psych Appearance: grossly normal and well kempt Speech and movement: Normal speech and movement present Results Reviewed Results Reviewed: COMPLIANCE REPORT FOR THE LAST 30 NIGHTS SHOWS THAT HE HAS USED 30/30 NIGHTS, 100%. AVERAGE USE IT PER NIGHT. 6 HOURS 18 MINUTES PRESSURE USED IS THE 9-10 CM. THERE IS A MODERATE AMOUNT OF AIR LEAK MAXIMUM 54 L/MINUTE. RESIDUAL AHI 3.3. Assessment & Plan Assessment & Plan (1) Obesity (BMI 30-39.9): Comment: BMI=31.1 STABLE, ONLY SLIGHTLY OVERWEIGHT. Code(s): E66.9 - Obesity, unspecified Plan: DISCUSSED WITH HIM ABOUT WATCHING HIS DIET AND WALKING DAILY (2) IVA (obstructive sleep apnea): Comment: *He has well established diagnosis of obstructive sleep apnea since 30 years ago. Has been successfully treated with application of CPAP at night. HE IS USING HIS NEW CPAP MACHINE REGULARLY PRESSURE SETTING AUTO PAP MODE 6-20 CM . COMPLIANCE IS EXCELLENT AND HE DEFINITELY BENEFITS FROM THE USE. NASAL MASK, Code(s): G47.33 - Obstructive sleep apnea (adult) (pediatric) Plan: DVISED TO CONTINUE TO USE THE CPAP REGULARLY AND WILL BE RE-EVALUATED IN 6 MONTHS. ALSO ADVISED TO WATCH HIS WEIGHT, AND LOSE ABOUT 5-10 LB IF POSSIBLE. (3) Restless leg syndrome: Comment: He does have periodic limb movement disorder, but PLM related arousal index is only 5.8 . This is sec to Peripheral Neuropathy . Code(s): G25.81 - Restless legs syndrome Plan: Patient is on gabapentin 100 mg t.i.d. for his neuropathy AND IT HELPS TO KEEP HIS THE RESTLESS LEG SYNDROME UNDER CONTROL. Coding Level of Care Code Est Pt Level 3 (10070) Diagnoses Obesity (BMI 30-39.9) E66.9 IVA (obstructive sleep apnea) G47.33 Restless leg syndrome G25.81
== END 2024-02-05 16:05 | disposition home or self-care (01) ==
PROVIDERS: PCP Internal Medicine; Visit Provider Internal Medicine
DX: E66.9 Obesity, unspecified (principal); G47.33 Obstructive sleep apnea (adult) (pediatric); G25.81 Restless legs syndrome
CPT/HCPCS: 99213

== ENCOUNTER → 2024-02-05 15:36 | Outpatient (BNVA) | payer MEDICARE, SELFPAY | PROVIDERS: PCP Internal Medicine; Visit Provider Internal Medicine | DX: G47.33 Obstructive sleep apnea (adult) (pediatric) (principal); G25.81 Restless legs syndrome | CPT/HCPCS: 99212 ==

== ENCOUNTER 2024-04-26 08:01 | Outpatient (REF) | payer MEDICARE, SELFPAY ==
[2024-04-26 08:13] LABS: MANUAL DIFF FLAG NO
[2024-04-26 08:28] LABS: Basophils Percent Auto 0.3 % (0-2); Eosinophils Absolute Auto 0.4 X10*3/uL (0.0-0.4); Eosinophils Percent Auto 5.7 % (0-4); Hematocrit 47.3 % (42.0-52.0); Hemoglobin 15.5 g/dl (14.0-18.0); Imm Gran Abs Auto 0.01 X10*3/uL (0.00-0.03); Imm Gran Pct Auto 0.2 % (0.0-0.4); Lymphocytes Absolute Auto 0.7 X10*3/uL (1.2-4.9); Lymphocytes Percent Auto 11.8 % (20-40); Mean Corpuscular HGB Conc 32.8 g/dl (31.0-36.0); Mean Corpuscular Hemoglobin 27.4 pg (27.0-33.0); Mean Corpuscular Volume 83.6 fL (80.0-98.0); Mean Platelet Volume 9.5 fL (9.4-12.4); Monocytes Absolute Auto 0.5 X10*3/uL (0.1-1.2); Monocytes Percent Auto 7.9 % (2-11); Neutrophils Absolute Auto 4.6 x10*3/uL (2.0-8.3); Neutrophils Percent Auto 74.1 % (45-73); Platelet Count 158 X10*3/uL (160-400); Red Blood Count 5.66 X10*6/uL (4.60-5.80); Red Cell Distribution Width 13.2 % (11.0-16.0); White Blood Count 6.2 X10*3/uL (4.8-10.8)
[2024-04-26 09:21] LABS: Alanine Aminotransferase 15 U/L (0-40); Albumin Level 4.1 g/dL (3.5-5.0); Alkaline Phosphatase 93 U/L (39-117); Anion Gap 12 (12-20); Aspartate Amino Transferase 14 U/L (5-37); Bilirubin Total 0.5 mg/dL (0.0-1.0); Blood Urea Nitrogen 21 mg/dL (9-16); Calcium 10.1 mg/dL (8.4-10.2); Carbon Dioxide 26 mmol/L (22-29); Chloride 109 mmol/L (96-108); Cholesterol 135 mg/dL (<200); Estimated Glomerular Filt Rate > 60; Glucose Fasting 145 mg/dL (60-99); HDL Cholesterol 47 mg/dL (>40); Iron 76 mcg/dL (45-160); LDL Cholesterol Calculated 74 mg/dL (<100); Percent Iron Saturation 23 % (15-50); Potassium 4.9 mmol/L (3.3-5.1); Sodium 142 mmol/L (135-145); Total Iron Binding Capacity 331 mcg/dL (228-428); Total Protein 6.5 g/dL (6.5-8.0); Triglycerides 71 mg/dL (<150); Unsaturated Iron Binding 255 ug/dL
[2024-04-26 09:28] LABS: Vitamin D 25-OH Total 28.9 ng/mL (>30)
[2024-04-26 09:38] LABS: Folate 12.5 ng/mL (> or = 4.0); Vitamin B12 455 pg/mL (200-900)
[2024-04-26 10:14] LABS: Creatinine Urine 78.56 mg/dL; Microalbum/Creatinine Ratio Ur 10.1 ug/mg cr (<30)
== END 2024-04-26 08:02 | disposition home or self-care (01) ==
LOC: HO.LAB 08:01
PROVIDERS: PCP Internal Medicine; Visit Provider Internal Medicine
DX: D64.9 Anemia, unspecified (principal); I25.10 Atherosclerotic heart disease of native coronary artery without angina pectoris; E78.5 Hyperlipidemia, unspecified; E11.9 Type 2 diabetes mellitus without complications; E55.9 Vitamin D deficiency, unspecified; E53.8 Deficiency of other specified B group vitamins
CPT/HCPCS: 36415; 80053; 80061; 82043; 82306; 82570; 82607; 82746; 83540; 85025

== ENCOUNTER 2024-04-29 14:38 | Outpatient (AMB) | payer MEDICARE, SELFPAY ==
--- NOTE | 2024-04-29 14:43 | MHC.PC.OV ---
Vital Signs 04/29/24 14:56 Height 5 ft 6 in Weight 188 lb 6 oz BMI 30.4 BP 122/80 Blood Pressure Location Lt brachial Position Sitting Intake Visit Reasons: dm Intake Note: Patient here for a follow up dm, c/o upper body arm pains, forgetfulness Business Dean Required: No Accompanied by: Spouse Allergies No Known Allergies [No Known Allergies*] Allergy (Verified 04/29/24 15:29) Medication List - Last Reconciled 04/29/24 by Netta Zamora MD aspirin 81 mg PO DAILY 90 days atorvastatin 80 mg PO DAILY 90 days blood sugar diagnostic (PharmatrophiXuch Ultra Test strips) Test Daily 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 meter (Glisten Ultra2 Meter) As directed cholecalciferol (vitamin D3) 50 mcg PO DAILY 90 days CPAP (CPAP Machine/Device) As directed dulaglutide (Trulicity) 4.5 mg (0.5 mL) subcut QWEEK 90 days empagliflozin (Jardiance) 25 mg PO DAILY 90 days ezetimibe 10 mg PO DAILY 90 days gabapentin 100 mg PO TID lancets (PharmatrophiXuch Delica Lancets) As directed daily lisinopril 20 mg PO DAILY 90 days metformin 1,000 mg PO BID 90 days metoprolol tartrate 50 mg PO BID Tobacco use date assessed: 12/27/23 Fall risk assessment: No Falls in past year Last assessed Fall Risk: 04/29/24 Dental Screening Dental Screen Date: 12/27/23 HPI HPI Comments History of Present Illness Details This is a 69-year-old male with diabetes mellitus type 2, hypertension, dyslipidemia, GERD, history of CVA with no residual deficit and sleep apnea on CPAP that comes accompanied by for follow-up on his conditions. A1c elevated and I will start him on insulin. Blood pressure stable. LDL close to goal. GERD stable with PPIs. On aspirin for secondary prophylaxis of CVA. Compliant with CPAP machine for his obstructive sleep apnea and feels more rested. No chest pain or shortness of breath. Patient complains of bilateral shoulder pain that has been present for over 3 months with full active range of motion. [facility] Medical History (Updated 04/29/24 @ 21:18 by Netta Zamora MD) Encounter for Medicare annual wellness exam Restless leg syndrome IVA (obstructive sleep apnea) Obesity (BMI 30-39.9) CAD (coronary artery disease) Dyslipidemia Diabetic polyneuropathy associated with type 2 diabetes mellitus Mild non proliferative diabetic retinopathy Essential hypertension Diabetes mellitus GERD (gastroesophageal reflux disease) Sleep apnea CVA (cerebral vascular accident) Surgical History History of angioplasty History of carpal tunnel release Hx of CABG History of surgery Family History Father Stroke Mother Hypertension Maternal Grandmother Ovarian cancer Maternal Aunt Ovarian cancer Brother Colon cancer Social History Housing: Apartment Alcohol intake: current Alcohol intake frequency: a few times a month Alcohol type: beer Patient Tobacco Use Status: Never used Tobacco e-Cigarette/Vaping Use: Never Used Second Hand Smoke Exposure: No service: No Current occupational status: retired Cognitive needs: No Hearing needs: No Vision needs: No Questionnaire Thrive Questionnaire Date Thrive assessed: 12/27/23 NICKI-7 AMB Questionnaire NICKI-7 Date NICKI - 7 assessed: 12/27/23 Source: Developed by Drs. Pete Hampton, Tamiko Zhao, Edd Cuenca and colleagues, with an educational bartolome from [employer]. Review of Systems Const All systems reviewed & are unremarkable except as noted in HPI and below Card Denies chest pain at rest, Denies chest pain with activity, Denies edema, Denies irregular heart rhythm, Denies claudication, Denies dyspnea, Denies dyspnea on exertion, Denies orthopnea, Denies paroxysmal nocturnal dyspnea and Denies slow heart rate Resp Denies cough, Denies dyspnea and Denies dyspnea on exertion Physical exam (Primary Care) Vital Signs: Last Vital Signs BP 122/80 04/29/24 14:56 BMI result Body Mass Index 30.4 Tobacco/Smoking Status: Tobacco use Status Tobacco use date assessed 12/27/23 04/29/24 14:44 Patient Tobacco Use Status Never used Tobacco 04/29/24 14:44 e-Cigarette/Vaping Use Never Used 04/29/24 14:44 Thrive Assessment: Date of Thrive Assessment Date Thrive assessed 12/27/23 04/29/24 14:44 Resp Effort & Inspection: normal respiratory effort Auscultation: clear to auscultation bilaterally Cardio Jugular venous distension: no JVD Rate: regular rate Rhythm: regular rhythm Heart sounds: S1 normal heart sound present and S2 normal heart sound present Extrem General: Yes full ROM Results AMB Hemoglobin A1c AMB Hemoglobin A1c 9.4 % Last Edit by LISE Hoffman on 04/29/24 15:09 Results Reviewed Results Reviewed: Laboratory Last Values Hgb A1c (Clinic) 9.4 % (4.0-6.0) H 04/29/24 14:44 Assessment and Plan Assessment & Plan (1) Dyslipidemia: Code(s): E78.5 - Hyperlipidemia, unspecified Plan: Continue statins. LDL goal is less than 70. Start low-cholesterol diet. (2) Diabetes mellitus: Code(s): E11.9 - Type 2 diabetes mellitus without complications Qualifiers: Diabetes mellitus type: type 2 Diabetes mellitus long term care administrator insulin use: without long term care administrator use Diabetes mellitus complication status: without complication Qualified Code(s): E11.9 - Type 2 diabetes mellitus without complications Plan: Continue insulin and Jardiance. Start Tresiba. A1c goal is equal or less than 7%. (3) GERD (gastroesophageal reflux disease): Code(s): K21.9 - Gastro-esophageal reflux disease without esophagitis Qualifiers: Esophagitis presence: esophagitis presence not specified Qualified Code(s): K21.9 - Gastro-esophageal reflux disease without esophagitis Plan: Continue PPIs. (4) Essential hypertension: Code(s): I10 - Essential (primary) hypertension Plan: Continue lisinopril. Blood pressure goal is equal or less than 130/80. (5) IVA (obstructive sleep apnea): Comment: *He has well established diagnosis of obstructive sleep apnea since 30 years ago. Has been successfully treated with application of CPAP at night. HE IS USING HIS NEW CPAP MACHINE REGULARLY PRESSURE SETTING AUTO PAP MODE 6-20 CM . COMPLIANCE IS EXCELLENT AND HE DEFINITELY BENEFITS FROM THE USE. NASAL MASK, Code(s): G47.33 - Obstructive sleep apnea (adult) (pediatric) Plan: Continue CPAP machine. (6) CVA (cerebral vascular accident): Code(s): I63.9 - Cerebral infarction, unspecified Qualifiers: CVA mechanism: unspecified Qualified Code(s): I63.9 - Cerebral infarction, unspecified Plan: Continue aspirin for secondary prophylaxis. Orders: Orders Lipid Panel 4 Months E11.9 - Type 2 diabetes mellitus without complications, E78.5 - Hyperlipidemia, unspecified Vitamin D 25-OH Total 4 Months E55.9 - Vitamin D deficiency, unspecified Complete Blood Count Auto Diff 4 Months D64.9 - Anemia, unspecified Vitamin B12 and Folate 4 Months E53.8 - Deficiency of other specified B group vitamins XR shoulder LT min 2V Today M25.512 - Pain in left shoulder XR shoulder RT min 2V Today M25.511 - Pain in right shoulder AMB Hemoglobin A1c Today E11.9 - Type 2 diabetes mellitus without complications Microalbumin, Random (w Creat) 4 Months E11.9 - Type 2 diabetes mellitus without complications Comprehensive [place]. Panel Fast 4 Months E11.9 - Type 2 diabetes mellitus without complications IRON PROFILE 4 Months D64.9 - Anemia, unspecified Medications: New insulin degludec (Tresiba FlexTouch U-100 insulin) 10 units (0.1 mL) subcut DAILY 90 days 9 mL 3RF E11.9 - Type 2 diabetes mellitus without complications pen needle, diabetic (1st Tier Unifine Pentips) Use 1 pen needle once a day 100 ea 3RF E11.9 - Type 2 diabetes mellitus without complications Refilled 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 meter (OneTouch Ultra2 Meter) As directed 1 ea 0RF E11.9 - Type 2 diabetes mellitus without complications Coding Level of Care Code Est Pt Level 4 (17691) Complex EM visit Add On G2211 Diagnoses Dyslipidemia E78.5 Type 2 diabetes mellitus without complication, without long-term current use of insulin E11.9 Diabetes mellitus type: type 2 Diabetes mellitus long term care administrator insulin use: without fpc use Diabetes mellitus complication status: without complication Gastroesophageal reflux disease, unspecified whether esophagitis present K21.9 Esophagitis presence: esophagitis presence not specified Essential hypertension I10 IVA (obstructive sleep apnea) G47.33 Cerebrovascular accident (CVA), unspecified mechanism I63.9 CVA mechanism: unspecified Time Spent (min) 23
[2024-04-29 14:56] VITALS: BP 122/80; BMI 30.4
== END 2024-04-29 15:44 | disposition home or self-care (01) ==
PROVIDERS: PCP Internal Medicine; Visit Provider Internal Medicine
DX: E78.5 Hyperlipidemia, unspecified (principal); E11.69 Type 2 diabetes mellitus with other specified complication; Z86.73 Personal history of transient ischemic attack (TIA), and cerebral infarction without residual deficits; K21.9 Gastro-esophageal reflux disease without esophagitis; I10 Essential (primary) hypertension; G47.33 Obstructive sleep apnea (adult) (pediatric)
CPT/HCPCS: 83036; 99214; G2211

== ENCOUNTER → 2024-07-04 15:40 | Outpatient (BNVA) | payer MEDICARE, SELFPAY | PROVIDERS: PCP Internal Medicine; Visit Provider Physician Assistant Medical | DX: E11.8 Type 2 diabetes mellitus with unspecified complications (principal); E78.5 Hyperlipidemia, unspecified; B35.1 Tinea unguium | CPT/HCPCS: 82947; 99202 ==

== ENCOUNTER 2024-07-28 15:50 | Outpatient (AMB) | payer MEDICARE, SELFPAY ==
--- NOTE | 2024-07-28 16:18 | A.OFFVIS_ITS ---
Intake Intake Visit Reasons: T2DM Seafood Processor Required: Yes Seafood Processor Language: Defence Intelligence Analyst Services: Seafood Processor Offered & Declined Seafood Processor Name: [id number] Information Interpreted: non-clinical & clinical Accompanied by: Spouse Allergies No Known Allergies [No Known Allergies*] Allergy (Verified 07/04/24 16:11) HPI Comprehensive Diabetes Asmnt Most Recent Diabetes Results: Microalb/Creat Ratio 10.1 ug/mg cr (<30) 04/26/24 Cholesterol 135 mg/dL (<200) 04/26/24 HDL Cholesterol 47 mg/dL (>40) 04/26/24 Triglycerides 71 mg/dL (<150) 04/26/24 Creatinine 1.09 mg/dL (0.5-1.4) 04/26/24 Blood Urea Nitrogen 21 mg/dL (9-16) H 04/26/24 Sodium 142 mmol/L (135-145) 04/26/24 Potassium 4.9 mmol/L (3.3-5.1) 04/26/24 Chloride 109 mmol/L (96-108) H 04/26/24 Carbon Dioxide 26 mmol/L (22-29) 04/26/24 Calcium 10.1 mg/dL (8.4-10.2) 04/26/24 AST 14 U/L (5-37) 04/26/24 ALT 15 U/L (0-40) 04/26/24 Total Protein 6.5 g/dL (6.5-8.0) 04/26/24 Albumin 4.1 g/dL (3.5-5.0) 04/26/24 [facility] Medical History (Updated 07/04/24 @ 17:29 by COLLEEN Hall) Type II diabetes mellitus with complication Onychomycosis Encounter for Medicare annual wellness exam Restless leg syndrome IVA (obstructive sleep apnea) Obesity (BMI 30-39.9) CAD (coronary artery disease) Dyslipidemia Diabetic polyneuropathy associated with type 2 diabetes mellitus Mild non proliferative diabetic retinopathy Essential hypertension Diabetes mellitus GERD (gastroesophageal reflux disease) Sleep apnea CVA (cerebral vascular accident) Surgical History History of angioplasty History of carpal tunnel release Hx of CABG History of surgery Family History Father Stroke Mother Hypertension Maternal Grandmother Ovarian cancer Maternal Aunt Ovarian cancer Brother Colon cancer Social History Housing: Apartment Alcohol intake: current Alcohol intake frequency: a few times a month Alcohol type: beer Patient Tobacco Use Status: Never used Tobacco e-Cigarette/Vaping Use: Never Used Second Hand Smoke Exposure: No service: No Current occupational status: retired Cognitive needs: No Hearing needs: No Vision needs: No Assessment & Plan Assessment & Plan (1) Diabetes mellitus: Code(s): E11.9 - Type 2 diabetes mellitus without complications Qualifiers: Diabetes mellitus type: type 2 Diabetes mellitus [facility] insulin use: without [facility] use Diabetes mellitus complication status: without complication Qualified Code(s): E11.9 - Type 2 diabetes mellitus without complications Plan: Patient at visit to set up an insert Bret 3 Instructed patient sensors water proof you can shower, or swim do not submerge sensor in water for over 30 minutes Is sensor falls off cannot put back in you need to replace sensor, customer service number given to patient for sensor replacement Sensor placed on the back of R arm Patient left visit with sensor in warmup Reviewed how to interpret trend arrows Reminded patient that to check finger sticks if symptoms do not match sensor reading. Discussed lag time between finger stick and sensor data.? Instructed patient she should always keep blood glucometer for backup testing if needed Reviewed delay of CGM from fingersticks Reminded pt that if symptoms do not match sensor still needs to check fingersticks. Portions of this note were created using voice recognition software, please excuse any words or phrases that may have been misinterpreted. Patient Instructions: Patient instruction: CGM provides information on blood glucose control throughout the day, including hyperglycemia and hypoglycemia. ? Continue to monitor blood glucose as instructed. Follow nutrition guidelines provided. Report any discomfort promptly to health care provider. ?Stay well-hydrated. You can bathe ,shower, swim and exercise while wearing the glucose sensor. Do not submerge glucose sensor in water for more than 30 minutes. Instrucciones para el paciente: CGM proporciona informaci?n sobre el control de la glucosa en [place] a lo nathalia del d?a, incluidas la hiperglucemia y la hipoglucemia. Contin?e controlando la glucosa en [place] seg?n las instrucciones. Siga las pautas de nutrici?n proporcionadas. Informe cualquier molestia de inmediato al proveedor de atenci?n m?dica. Mantente paula hidratado. Puede ba?arse, ducharse, nadar y hacer ejercicio mientras usa el sensor de glucosa. No sumerja el sensor de glucosa en agua [place] m?s de 30 minutos. Retire el sensor para andrew resonancia magn?rodo o andrew tomograf?a computarizada. Evite la m?quina de key X en los aeropuertos: retire el sensor o solicite la varita Coding Level of Care Code Est Pt Level 1 (99759) Diagnoses Type 2 diabetes mellitus without complication, without long-term current use of insulin E11.9 Diabetes mellitus type: type 2 Diabetes mellitus [facility] insulin use: without termite exterminator use Diabetes mellitus complication status: without complication
== END 2024-07-28 16:21 | disposition home or self-care (01) ==
PROVIDERS: PCP Internal Medicine; Visit Provider Registered Nurse Diabetes Educator
DX: E11.9 Type 2 diabetes mellitus without complications (principal)

== ENCOUNTER → 2024-07-28 15:50 | Outpatient (BNVA) | payer MEDICARE, SELFPAY | PROVIDERS: PCP Internal Medicine; Visit Provider Registered Nurse Diabetes Educator | DX: E11.9 Type 2 diabetes mellitus without complications (principal) | CPT/HCPCS: 99211 ==

== ENCOUNTER 2024-07-31 16:40 | Emergency (ER) | payer MEDICARE, SELFPAY ==
[2024-07-31 17:14] VITALS: BP 116/64; PULSE 63; RESP 16; TEMP 36.9; O2SAT 98; BMI 31.5
--- NOTE | 2024-07-31 17:22 | ED_ITS ---
HPI - General Adult General Chief complaint: Eye Problems Stated complaint: left eye Time Seen by Provider: 07/31/24 17:20 Source: patient Mode of arrival: ambulatory Limitations: no limitations History of Present Illness ED Provider: Francis Thomas HPI narrative: 69 yold male with pmh of CVA, HTN, DM, and IVA presents to ED for blood in left eye. Patient denies any trauma, headache, eye pain, change in vision, blurry vision, nausea, vomiting, fever, chills, ear pain, wearing contacts, or foreign body in the eye. Patient states this has happened before and resolved on its own. Related Data Home Medications ?Medication ?Instructions ?Recorded ?Confirmed CPAP (CPAP Machine/Device) #1 ea 01/14/21 04/29/24 Previous Rx's ?Medication ?Instructions ?Recorded lancets 30 gauge (OneTouch Delica #100 ea 09/06/21 Lancets) aspirin 81 mg tablet,delayed 81 mg PO DAILY 90 days #90 tabs 12/27/23 release cholecalciferol (vitamin D3) 50 50 mcg PO DAILY 90 days #90 caps 12/27/23 mcg (2,000 unit) capsule empagliflozin 25 mg tablet 25 mg PO DAILY 90 days #90 tabs 12/27/23 (Jardiance) metformin 1,000 mg tablet 1,000 mg PO BID 90 days #180 tabs 12/27/23 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 meter (OneTouch #1 ea 04/29/24 Ultra2 Meter) insulin degludec 100 unit/mL (3 10 unit (0.1 mL) subcut DAILY 90 04/29/24 mL) subcutaneous pen ( #9 mL FlexTouch U-100 insulin) pen needle, diabetic 31 gauge x #100 ea 04/29/2404/03 (1st Tier Unifine Pentips) blood sugar diagnostic (OneTouch #100 ea 05/02/24 Ultra Test strips) atorvastatin 80 mg tablet 80 mg PO DAILY 90 days #90 tabs 06/01/24 ezetimibe 10 mg tablet 10 mg PO DAILY 90 days #90 tabs 06/01/24 gabapentin 100 mg capsule 100 mg PO TID #90 caps 06/22/24 lisinopril 20 mg tablet 20 mg PO DAILY 90 days #90 tabs 06/25/24 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 meter,continuous #1 ea 07/04/24 (FreeStyle Bret 3 [place]) 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 sensor (FreeStyle #2 ea 07/04/24 Bret 3 Sensor device) tirzepatide 2.5 mg/0.5 mL 2.5 mg (0.5 mL) subcut QWEEK 4 07/04/24 subcutaneous pen injector weeks #2 mL (Mounjaro) metoprolol tartrate 50 mg tablet 50 mg PO BID #60 tabs 07/12/24 Allergies Allergy/AdvReac Type Severity Reaction Status Date / Time No Known Allergies Allergy Verified 07/31/24 17:15 [No Known Allergies*] Review of Systems 2 Review of Systems: Left eye bleeding around scleral Yes all other systems are reviewed and are negative [facility] Past Medical History Medical History (Updated 08/01/24 @ 00:01 by Erlinda Coulter) Type II diabetes mellitus with complication Onychomycosis Encounter for Medicare annual wellness exam Restless leg syndrome IVA (obstructive sleep apnea) Obesity (BMI 30-39.9) CAD (coronary artery disease) Dyslipidemia Diabetic polyneuropathy associated with type 2 diabetes mellitus Mild non proliferative diabetic retinopathy Essential hypertension Diabetes mellitus GERD (gastroesophageal reflux disease) Sleep apnea CVA (cerebral vascular accident) Surgical History History of angioplasty History of carpal tunnel release Hx of CABG History of surgery Family History Family History Father Stroke Mother Hypertension Maternal Grandmother Ovarian cancer Maternal Aunt Ovarian cancer Brother Colon cancer Social History Social History Housing: Apartment Alcohol intake: current Alcohol intake frequency: a few times a month Alcohol type: beer Patient Tobacco Use Status: Never used Tobacco e-Cigarette/Vaping Use: Never Used Second Hand Smoke Exposure: No Advance Directives: No Advance Directives Information Provided: No Do you have a plan to hurt others: No Plan service: No Current occupational status: retired Cognitive needs: No Hearing needs: No Vision needs: No Physical Exam ED Vital Signs: Vital Signs - 24 hr 07/31/24 17:14 07/31/24 17:34 Temperature 98.5 F 98.5 F Pulse Rate 63 72 Respiratory Rate 16 16 Blood Pressure 116/64 116/63 Pulse Oximetry 98 Oxygen Delivery Method Room Air Room Air BMI result Body Mass Index 31.5 Const General: cooperative, healthy appearing, comfortable, no acute distress, well developed, alert, awake and Physically active Orientation/consciousness: patient oriented x3 [facility] Head: Yes normal to inspection, Yes No palpable skull fracture present, Yes normocephalic, Yes atraumatic and No abrasion Ears: hearing grossly normal bilaterally, external ears normal, TM's normal bilaterally, TM normal on the right, TM normal on the left, EAC's normal, mastoids normal and no periauricular adenopathy Throat: Yes posterior oropharynx normal, Yes tonsils normal and Yes uvula midline Eyes Other: Right eye visual acuity 20/30. Left eye visual acuity 20/40. Left eye normal General: appearance normal, both eyes and all related structures Eyes/upper lids images: 2 1. Positive for subconjunctival hemorrhage. Negative for hyphema. Negative for any photophobia, eyelid swelling, mass on the eyelids, foreign body, corneal abrasion, corneal ulcer, or signs of globe rupture. 2. Positive for subconjunctival hemorrhage. Negative for hyphema. Negative for any photophobia, eyelid swelling, mass on the eyelids, foreign body, corneal abrasion, corneal ulcer, or signs of globe rupture. Neck Neck: Yes normal visual inspection, Yes full ROM, Yes no lymphadenopathy, Yes no meningeal signs, Yes trachea midline, Yes supple, No anterior neck swelling and No tender Chest Chest palpation & inspection: normal inspection of the chest and normal palpation of entire chest wall Resp Effort & Inspection: normal respiratory effort and able to speak in complete sentences Auscultation: clear to auscultation bilaterally Cardio Jugular venous distension: no JVD Heart sounds: S1 normal heart sound present and S2 normal heart sound present GI Inspection: Yes normal to inspection Palpation (GI): Soft to palpation, not firm, nontender, no guarding and not rigid General: No CVA tenderness and Yes no CVA tenderness Back/Spine/Pelvis Back: no CVA tenderness, No CVA tenderness and No back tenderness Skin General skin exam: no rashes or lesions noted, elasticity normal and turgor normal Neuro General: patient oriented x3, gait normal, tone normal, moves all extremities, no meningeal signs, no focal motor deficits, CN's II-XI intact bilaterally and normal sensation to monofilament Extrem General: Yes normal to inspection, Yes full ROM and Yes capillary refill normal Psych Appearance: grossly normal, well kempt and not disheveled Medical Decision Making Medical Decision Making MDM Narrative: 69-YEAR-OLD MALE HISTORY OF DIABETES PRESENTS TO ED FOR BLOOD IN LEFT EYE/REDNESS. PATIENT DENIES ANY EYE PAIN OR CHANGE IN VISION. PATIENT DENIES ANY HEAD TRAUMA, HEADACHE, BLEEDING FROM THE EARS OR FLUID FROM THE EARS. PATIENT DENIES ANY DIZZINESS. PATIENT DENIES WEARING ANY CONTACTS. PATIENT DENIES ANY EYE DISCHARGE OR EYE LID MATTING. PATIENT STATES NO FEVER OR CHILLS. PHYSICAL EXAM INDICATES SUBconjuctiv HEMORRHAGE. NEGATIVE FOR SIGNS OF HYPHEMA. NOT SUSPECTING GLOBE RUPTURE. Not suspecting globe rupture, glaucoma, scleritis, episcleritis, or orbital cellulitis. Differential Diagnosis Differential Diagnoses: The differential diagnosis associated with the presentation includes (Subconjunctival hemorrhage, corneal abrasion, corneal ulcer, also of colitis) Admission/Observation Consideration of admission/observation: Escalation of care including admission/observation considered Independent Historian Clinical information obtained from an independent historian. History obtained from or confirmed by: Other (Patient) External Record Review External record reviewed: Other (prior visits) Discharge Plan Discharge Clinical Impression: Subconjunctival hemorrhage Patient Disposition: Home, Self-Care Instructions: Subconjunctival Hemorrhage (ED) Additional Instructions: Recommend follow-up with primary care provider and eye doctor. Return to the ED immediately for any eye pain, loss of vision, blurry vision, change in vision, worsening eye bleeding, eye redness, fever, chills, headache, nausea, vomiting, bleeding from the ears, clear fluid from the ears, eye discharge, eye crusting, or any other concerning symptoms. Prescriptions: No Action (DME) CPAP Machine/Device Device See Rx Instructions .ROUTE .MEDSUPPLY Qty: 1 Rx Instructions: As directed (DME) lancets [OneTouch Delica Lancets] 30 gauge misc See Rx Instructions .Route Qty: 100 3RF Rx Instructions: As directed daily (DME) OneTouch Ultra Test Strip See Rx Instructions .Route Qty: 100 3RF Rx Instructions: Test Daily ezetimibe 10 mg tablet 10 mg PO DAILY 90 Days Qty: 90 0RF atorvastatin 80 mg tablet 80 mg PO DAILY 90 Days Qty: 90 0RF gabapentin 100 mg capsule 100 mg PO TID Qty: 90 0RF lisinopril 20 mg tablet 20 mg PO DAILY 90 Days Qty: 90 1RF metoprolol tartrate 50 mg tablet 50 mg PO BID Qty: 60 0RF insulin degludec [Tresiba FlexTouch U-100] 100 unit/mL (3 mL) insulin pen 10 unit subcut DAILY 90 Days Qty: 9 3RF (DME) pen needle, diabetic [1st Tier Unifine Pentips] 31 gauge x 5/16 needle See Rx Instructions .Route Qty: 100 3RF Rx Instructions: Use 1 pen needle once a day (DME) 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 meter [OneTouch Ultra2 Meter] [facility] [place] See Rx Instructions .Route Qty: 1 0RF Rx Instructions: As directed cholecalciferol (vitamin D3) 50 mcg (2,000 unit) capsule 50 mcg PO DAILY 90 Days Qty: 90 1RF aspirin 81 mg tablet,delayed release (DR/EC) 81 mg PO DAILY 90 Days Qty: 90 1RF metformin 1,000 mg tablet 1,000 mg PO BID 90 Days Qty: 180 1RF Jardiance 25 mg tablet 25 mg PO DAILY 90 Days Qty: 90 1RF Mounjaro 2.5 mg/0.5 mL pen injector 2.5 mg subcut QWEEK 28 Days Qty: 2 0RF (DME) FreeStyle Bret 3 Sensor Device See Rx Instructions .ROUTE .MEDSUPPLY Qty: 2 11RF Rx Instructions: apply new sensor every 14 days as directed (DME) FreeStyle Bret 3 [place] [facility] [place] See Rx Instructions .ROUTE .MEDSUPPLY Qty: 1 0RF Rx Instructions: as directed Referrals: Pelon Mccallum [Physician] - (Subconjunctival hemorrhage) Interventions: ED Discharge Assessment Last Done: 07/31/24 17:34 Discharge Date/Time: 07/31/24 17:36 Print Language: Taiwanese
[2024-07-31 17:34] VITALS: BP 116/63; PULSE 72; RESP 16; TEMP 36.9
== END 2024-07-31 17:36 | disposition home or self-care (01) ==
PROVIDERS: Emergency Provider Internal Medicine; PCP Internal Medicine
DX: H11.32 Conjunctival hemorrhage, left eye (principal); I10 Essential (primary) hypertension; G47.33 Obstructive sleep apnea (adult) (pediatric); I25.10 Atherosclerotic heart disease of native coronary artery without angina pectoris; Z86.73 Personal history of transient ischemic attack (TIA), and cerebral infarction without residual deficits
CPT/HCPCS: 99282

== ENCOUNTER 2024-08-25 15:39 | Outpatient (AMB) | payer MEDICARE, SELFPAY ==
--- NOTE | 2024-08-25 16:14 | A.OFFVIS_ITS ---
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 Name: Dave [id number] Accompanied by: Spouse Allergies No Known Allergies [No Known Allergies*] Allergy (Verified 07/31/24 17:15) HPI Comprehensive Diabetes Asmnt Most Recent Diabetes Results: Microalb/Creat Ratio 10.1 ug/mg cr (<30) 04/26/24 Cholesterol 135 mg/dL (<200) 04/26/24 HDL Cholesterol 47 mg/dL (>40) 04/26/24 Triglycerides 71 mg/dL (<150) 04/26/24 Creatinine 1.09 mg/dL (0.5-1.4) 04/26/24 Blood Urea Nitrogen 21 mg/dL (9-16) H 04/26/24 Sodium 142 mmol/L (135-145) 04/26/24 Potassium 4.9 mmol/L (3.3-5.1) 04/26/24 Chloride 109 mmol/L (96-108) H 04/26/24 Carbon Dioxide 26 mmol/L (22-29) 04/26/24 Calcium 10.1 mg/dL (8.4-10.2) 04/26/24 AST 14 U/L (5-37) 04/26/24 ALT 15 U/L (0-40) 04/26/24 Total Protein 6.5 g/dL (6.5-8.0) 04/26/24 Albumin 4.1 g/dL (3.5-5.0) 04/26/24 [facility] Medical History (Updated 08/01/24 @ 00:01 by Erlinda Coulter) Type II diabetes mellitus with complication Onychomycosis Encounter for Medicare annual wellness exam Restless leg syndrome IVA (obstructive sleep apnea) Obesity (BMI 30-39.9) CAD (coronary artery disease) Dyslipidemia Diabetic polyneuropathy associated with type 2 diabetes mellitus Mild non proliferative diabetic retinopathy Essential hypertension Diabetes mellitus GERD (gastroesophageal reflux disease) Sleep apnea CVA (cerebral vascular accident) Surgical History History of angioplasty History of carpal tunnel release Hx of CABG History of surgery Family History Father Stroke Mother Hypertension Maternal Grandmother Ovarian cancer Maternal Aunt Ovarian cancer Brother Colon cancer Social History Housing: Apartment Alcohol intake: current Alcohol intake frequency: a few times a month Alcohol type: beer Patient Tobacco Use Status: Never used Tobacco e-Cigarette/Vaping Use: Never Used Second Hand Smoke Exposure: No service: No Current occupational status: retired Cognitive needs: No Hearing needs: No Vision needs: No Assessment & Plan Assessment & Plan (1) Type II diabetes mellitus with complication: Code(s): E11.8 - Type 2 diabetes mellitus with unspecified complications Plan: Learning objectives: The patient was provided with verbal and written education on the following topics as outlined below. The patient met all learning objectives and was able to verbalize understanding and provide teach back of education topics discussed . The patient was provided with the opportunity to ask questions and all questions were answered. Patient Assessment Assess patient education level/literacy/barriers Patient questions/concerns patient's last A1c on 04/29/2024 9.4%, here today for review Bret 3 sensor Patient reports he takes Mounjaro 2.5 mg weekly, he was concerned he was not getting the medication because he did not feel the needle. Demonstrated to patient how to inject Mounjaro Metformin 1000 mg b.i.d. Tresiba 10 units daily Jardiance 25 mg daily Patient has upcoming visit with physician's chiropractic assistant on 07/30/2024, patient should be due for new A1c at that appointment What is Diabetes? Pathophysiology How the body produces and uses insulin Identify type of DM Risk factors Signs of Diabetes Brief overview of Diabetes Management Monitoring blood sugar Following a meal plan Regular exercise Maintaining a healthy weight Taking medication as needed Members of the care team (PCP, RN, MA, RD, CDE, carton repairer) Blood glucose monitoring When/how often to test Target blood sugar ranges Patient's average glucose for the past 14 days 127 mg/dL Above target 8% At target 92% Below target 0% Patient did mention he had a few glucose drop into the 70s, reviewed rule of 15s, patient reports he treats low blood glucose with orange juice Introduction to Nutrition Importance of healthy diet in managing DM Diet is personalized to individual preference Review patient?s regular diet/food preferences Who prepares meals/does food shopping/ Dining out?/ Barriers? How diet effects glucose Eating 3 balanced meals a day with small, healthy snacks between meals Review food groups Carbohydrates: What is a carbohydrate/Which food/food groups are considered carbohydrates Effect of carbohydrates on blood glucose Portion sizes Reading food labels Basic carb counting (if applicable per nursing assessment) Plate method Meal planning Recommendations: Follow plate method, consistent carbs and read nutritional labels. Smart Goal: Educational Materials: The patient was provided with the following written educational materials: Planning Healthy Meals, Target Goals, and Rule of 15s Handout is [place]ian Patient Response to instructions: Comprehension of Instructions: Fair Readiness to make changes: Contemplation How confident they feel about making changes: Positive Portions of this note were created using voice recognition software, please excuse any words or phrases that may have been misinterpreted. Patient Instructions: Incluir actividad diaria regular. ADA recomienda 30 minutos de ejercicio 5 d?as a la semana. P?rdida de peso, hable con el PCP o el cardi?logo antes de comenzar un nuevo plan. Mida el nivel de az?car en la wayne seg?n las indicaciones; Ayuno y comida m?s deisy de 2hpp. Observe las tendencias en los resultados. Utilice los resultados y eval?e c?mo los alimentos, la actividad f?thierry y los medicamentos afectan los resultados de az?car en la wayne. Lleve el gluc?metro o CGM a la pr?xima visita. Conocer los medicamentos para la diabetes, hawk acci?n, los efectos secundarios, la eficacia, la toxicidad, la dosis prescrita, el momento y la frecuencia de administraci?n apropiados, el efecto de las dosis olvidadas y retrasadas y las instrucciones de almacenamiento, viaje y seguridad. T?cnicas de resoluci?n de problemas para el seguimiento de episodios de hipo/hiperglucemia y tratamientos. Reducir los comportamientos de reducci?n de riesgos, dejar de fumar, ex?menes regulares de ojos, pies y dentales. Coding Level of Care Code Est Pt Level 1 (26885) Diagnoses Type II diabetes mellitus with complication E11.8
== END 2024-08-25 16:16 | disposition home or self-care (01) ==
PROVIDERS: PCP Internal Medicine; Visit Provider Registered Nurse Diabetes Educator
DX: E11.8 Type 2 diabetes mellitus with unspecified complications (principal)

== ENCOUNTER → 2024-08-25 15:39 | Outpatient (BNVA) | payer MEDICARE, SELFPAY | PROVIDERS: PCP Internal Medicine; Visit Provider Registered Nurse Diabetes Educator | DX: E11.42 Type 2 diabetes mellitus with diabetic polyneuropathy (principal); E11.3299 Type 2 diabetes mellitus with mild nonproliferative diabetic retinopathy without macular edema, unspecified eye | CPT/HCPCS: 99211 ==

== ENCOUNTER 2024-09-09 15:31 | Outpatient (AMB) | payer MEDICARE, SELFPAY ==
--- NOTE | 2024-09-09 15:32 | A.OFFVIS_ITS ---
Vital Signs 09/09/24 15:35 Height 5 ft 6 in Weight 191 lb 12.835 oz BMI 31.0 BP 124/58 L Blood Pressure Location Rt brachial Position Sitting Pulse 95 Pulse Source Pulse Oximeter Intake Visit Reasons: DM/VM FULL Intake Note: Patient presents today to re-establish treatment for Type 2 Diabetes Mellitus: Last Diabetic eye exam was on: 2023 Last Podiatry exam was on: Does not see a Upper Stitcher Most recent HbA1c: 7.9%, 09/09/2024 Random Glucose- 134 mg/dL, Today Hardware Engineering Manager Required: Yes Hardware Engineering Manager Language: Small Products Assembler Services: Hardware Engineering Manager Offered & Declined Accompanied by: Significant Other Allergies No Known Allergies [No Known Allergies*] Allergy (Verified 07/31/24 17:15) Medication List - Last Reconciled 09/09/24 by COLLEEN Hall aspirin 81 mg PO DAILY 90 days atorvastatin 80 mg PO DAILY 90 days blood sugar diagnostic (OneTouch Ultra Test strips) Test Daily 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 meter (OneTouch Ultra2 Meter) As directed 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 meter,continuous (FreeStyle Bret 3 [place]) as directed 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 sensor (FreeStyle Bret 3 Sensor device) apply new sensor every 14 days as directed cholecalciferol (vitamin D3) 50 mcg PO DAILY 90 days CPAP (CPAP Machine/Device) As directed empagliflozin (Jardiance) 25 mg PO DAILY 90 days ezetimibe 10 mg PO DAILY 90 days gabapentin 100 mg PO TID insulin degludec (Tresiba FlexTouch U-100 insulin) 6 units subcut DAILY lancets ([place] Delica Lancets) As directed daily lisinopril 20 mg PO DAILY 90 days metformin 1,000 mg PO BID 90 days metoprolol tartrate 50 mg PO BID pen needle, diabetic (1st Tier Unifine Pentips) Use 1 pen needle once a day tirzepatide (Mounjaro) 5 mg (0.5 mL) subcut QWEEK HPI Comments Details: This is a 69-year-old male with a past medical history of type 2 diabetes, hypertension, coronary artery disease, hyperlipidemia, IVA, CVA, RLS presenting for diabetic management. He was last seen by me in the endocrinology department on 07/04/24. He is accompanied by his . Hemoglobin a1c 7.9% today 09/09/24 down from 9.4%. He met with the application support intern. Reviewed CGM report 08/12/2024-08/25/2024. GMI 6.3% CGM active 98% Average glucose 127 Glucose variability 27.4% Very high 1% High 7% Target 92% Low 0% Patient experiences hyperglycemia after meals. His current medication regimen includes Mounjaro 2.5 mg weekly, Jardiance 25 mg daily, Tresiba 10 units nightly and metformin 1000 mg twice a day. He has reduce carbohydrates and sugars in his diet. He is not having any juice or soda. No alcohol or smoking. Hypoglycemia symptoms: He has had a few episode over the past month with blood glucose in the 60s at night and felt shaky. He corrected it by drinking juice. Hyperglycemia symptoms: none Eye exam: UTD. ?Hypertensive vs DM retinopathy OU. His next appointment is in 11/2024. Microvascular complications: neuropathy, retinopathy Macrovascular complications: CAD, CVA Hypertension: treated with lisinopril 20 mg and metoprolol tartrate 50 mg twice daily. Hyperlipidemia: treated with atorvastatin 80 mg and Zetia 10 mg. ROS: Constitutional: No unexplained weight loss, fever, chills, fatigue or night sweats. Respiratory: No shortness of breath Cardiovascular: No chest pain Neurologic: No headache, dizziness, syncope Endocrine: No cold or heat intolerance. No polyuria or polydipsia. Physical exam: Constitutional: Alert, in no distress. Head: Normocephalic. Eyes: Pupils are equal, round and reactive to light. Extraocular muscles intact. Neck: Supple, Full range of motion. No lymphadenopathy. No palpable thyroid masses. Respiratory: Clear to auscultation. Cardiovascular: S1 S2 regular. No murmurs. Toenails: Bilateral onychomycosis. Right foot: Warm and well perfused. No clubbing, cyanosis or edema. DP pulse 2+. Decreased vibratory sensation. Intact sensation to monofilament. No open wounds. Left foot: Warm and well perfused. No clubbing, cyanosis or edema. DP pulse 2+. Decreased vibratory sensation. Intact sensation to monofilament. No open wounds. [facility] Medical History (Updated 08/01/24 @ 00:01 by Erlinda Coulter) Type II diabetes mellitus with complication Onychomycosis Encounter for Medicare annual wellness exam Restless leg syndrome IVA (obstructive sleep apnea) Obesity (BMI 30-39.9) CAD (coronary artery disease) Dyslipidemia Diabetic polyneuropathy associated with type 2 diabetes mellitus Mild non proliferative diabetic retinopathy Essential hypertension Diabetes mellitus GERD (gastroesophageal reflux disease) Sleep apnea CVA (cerebral vascular accident) Surgical History History of angioplasty History of carpal tunnel release Hx of CABG History of surgery Family History Father Stroke Mother Hypertension Maternal Grandmother Ovarian cancer Maternal Aunt Ovarian cancer Brother Colon cancer Social History Housing: Apartment Alcohol intake: current Alcohol intake frequency: a few times a month Alcohol type: beer Patient Tobacco Use Status: Never used Tobacco e-Cigarette/Vaping Use: Never Used Second Hand Smoke Exposure: No service: No Current occupational status: retired Cognitive needs: No Hearing needs: No Vision needs: No Physical Exam Vital Signs: Last Vital Signs Pulse 95 09/09/24 15:35 BP 124/58 L 09/09/24 15:35 BMI result Body Mass Index 31.0 Office Procedures Glucose Monitoring Details Details: see [facility] [id number] - Glucose monitoring, continuous-physician I&R Procedure code (CPT) selection complete Results AMB Hemoglobin A1c AMB Hemoglobin A1c 7.9 % Last Edit by LISE Newman on 09/09/24 15:52 Results Reviewed Results Reviewed: Laboratory Last Values Glucose (Clinic) 134 mg/dL (60-115) H 09/09/24 15:38 Laboratory Tests 04/26/24 04/26/24 04/29/24 08:10 08:11 14:44 Creatinine 1.09 Estimated GFR > 60 Glucose (Clinic) Hgb A1c (Clinic) 9.4 H Triglycerides 71 Cholesterol 135 LDL Cholesterol, Calc 74 HDL Cholesterol 47 Urine Creatinine 78.56 Urine Microalbumin 8.0 Microalb/Creat Ratio 10.1 07/04/24 16:05 Creatinine Estimated GFR Glucose (Clinic) 199 H Hgb A1c (Clinic) Triglycerides Cholesterol LDL Cholesterol, Calc HDL Cholesterol Urine Creatinine Urine Microalbumin Microalb/Creat Ratio Assessment & Plan Assessment & Plan (1) Type II diabetes mellitus with complication: Code(s): E11.8 - Type 2 diabetes mellitus with unspecified complications Category: Medical (2) Onychomycosis: Code(s): B35.1 - Tinea unguium Category: Medical Plan In summary this is a 69-year-old male with controlled type 2 diabetes per CGM data with micro and macrovascular complications. We set a new goal to taper off insulin and titrate his Glp1. Increase Mounjaro to 5 mg once weekly. Continue Jardiance 25 mg daily. Continue Metformin 1000 mg BID. Decrease Tresiba to 6 units nightly. Reviewed treatment of hypo/hyperglycemia. Referred to podiatry- says they were contacted to schedule the appointment. Follow up in 4 weeks for Type II DM. Orders: Orders AMB Glucose Monitoring Today E11.9 - Type 2 diabetes mellitus without complications AMB Hemoglobin A1c Today E11.8 - Type 2 diabetes mellitus with unspecified complications Medications: New tirzepatide (Mounjaro) 5 mg (0.5 mL) subcut QWEEK 2 mL 1RF Refilled 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 sensor (FreeStyle Bret 3 Sensor device) apply new sensor every 14 days as directed 2 ea 11RF Discontinued tirzepatide (Mounjaro) Discontinued Reason: Doctor's Order 2.5 mg (0.5 mL) subcut QWEEK 4 weeks 2 mL 0RF Patient Instructions: Increase Mounjaro to 5 mg once weekly. Aumente Mounjaro a 5 mg andrew vez por semana. Decrease Tresiba to 6 units nightly. Continue Metformin 1000 mg twice daily. Continue Jardiance 25 mg once daily. Disminuya Tresiba a 6 unidades por noche. Contin?e con metformina 1000 mg dos veces al d?a. Contin?e con Jardiance 25 mg andrew vez al d?a. Coding Level of Care Code Est Pt Level 4 (35696) Diagnoses Type II diabetes mellitus with complication E11.8 Onychomycosis B35.1 CPT Codes Details - CPT: 78698 - Glucose monitoring, continuous-physician I&R ([id number])
[2024-09-09 15:35] VITALS: BP 124/58; PULSE 95; BMI 31.0
[2024-09-09 15:43] LABS: Glucose, Whole Blood 134 mg/dL (60-115)
== END 2024-09-09 16:03 | disposition home or self-care (01) ==
PROVIDERS: PCP Internal Medicine; Visit Provider Physician Assistant Medical
DX: E11.8 Type 2 diabetes mellitus with unspecified complications (principal); B35.1 Tinea unguium

== ENCOUNTER → 2024-09-09 15:31 | Outpatient (BNVA) | payer MEDICARE, SELFPAY | PROVIDERS: PCP Internal Medicine; Visit Provider Physician Assistant Medical | DX: E11.42 Type 2 diabetes mellitus with diabetic polyneuropathy (principal); E11.3299 Type 2 diabetes mellitus with mild nonproliferative diabetic retinopathy without macular edema, unspecified eye; B35.1 Tinea unguium; Z79.4 Long term (current) use of insulin | CPT/HCPCS: 82947; 83036; 95249; 99212 ==

== ENCOUNTER 2024-09-25 14:08 | Outpatient (AMB) | payer MEDICARE, SELFPAY ==
[2024-09-25 14:26] VITALS: BP 112/66; PULSE 70; O2SAT 98; BMI 30.2
--- NOTE | 2024-09-25 14:26 | MHC.PC.OV ---
Vital Signs 09/25/24 14:26 Height 5 ft 6 in Weight 187 lb BMI 30.2 BP 112/66 Blood Pressure Location Lt brachial Position Sitting Pulse 70 Pulse Source Pulse Oximeter Pulse Oximetry (%) 98 Oxygen Delivery Method Room Air Intake Visit Reasons: Annual Exam Intake Note: Patient here for an Annual Physical Exam Front End Web Developer Required: No Accompanied by: Self / Same As Patient Allergies No Known Allergies [No Known Allergies*] Allergy (Verified 09/25/24 15:34) Medication List - Last Reconciled 09/25/24 by Netta Zamora MD aspirin 81 mg PO DAILY 90 days atorvastatin 80 mg PO DAILY 90 days blood sugar diagnostic (OneTouch Ultra Test strips) Test Daily 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 meter ([place] [employer]ream[employer] Technologyuch Ultra2 Meter) As directed 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 meter,continuous (FreeStyle Bret 3 [place]) as directed 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 sensor (FreeStyle Bret 3 Sensor device) apply new sensor every 14 days as directed cholecalciferol (vitamin D3) 50 mcg PO DAILY 90 days CPAP (CPAP Machine/Device) As directed empagliflozin (Jardiance) 25 mg PO DAILY 90 days ezetimibe 10 mg PO DAILY 90 days gabapentin 100 mg PO TID insulin degludec (Tresiba FlexTouch U-100 insulin) 6 units subcut DAILY lancets (OneTouch Delica Lancets) As directed daily lisinopril 20 mg PO DAILY 90 days metformin 1,000 mg PO BID 90 days metoprolol tartrate 50 mg PO BID pen needle, diabetic (1st Tier Unifine Pentips) Use 1 pen needle once a day tirzepatide (Mounjaro) 5 mg (0.5 mL) subcut QWEEK Tobacco use date assessed: 12/27/23 Fall risk assessment: No Falls in past year Last assessed Fall Risk: 09/25/24 Dental Screening Dental Screen Date: 09/25/24 Did you have a dental visit in the last 12 months?: No Did you have a dental problem in the last 6 months where you did not have access to dental care?: No Was dental information given to patient?: Patient has dentist HPI HPI Comments History of Present Illness Details This is a 69 year old male with diabetes mellitus type 2 and stroke with no residual deficit that comes for his physical exam. A1c elevated and I will increase insulin.. Diabetic eye exam done 2023. Colonoscopy done 2013 and will be referred to Dr. Abreu for another colonoscopy. No chest pain or shortness on breath. On aspirin for secondary prophylaxis of stroke. [facility] Medical History (Updated 09/25/24 @ 17:41 by Netta Zamora MD) Type II diabetes mellitus with complication Onychomycosis Encounter for Medicare annual wellness exam Restless leg syndrome IVA (obstructive sleep apnea) Obesity (BMI 30-39.9) CAD (coronary artery disease) Dyslipidemia Diabetic polyneuropathy associated with type 2 diabetes mellitus Mild non proliferative diabetic retinopathy Essential hypertension Diabetes mellitus GERD (gastroesophageal reflux disease) Sleep apnea CVA (cerebral vascular accident) Surgical History History of angioplasty History of carpal tunnel release Hx of CABG History of surgery Family History Father Stroke Mother Hypertension Maternal Grandmother Ovarian cancer Maternal Aunt Ovarian cancer Brother Colon cancer Social History Housing: Apartment Alcohol intake: current Alcohol intake frequency: a few times a month Alcohol type: beer Patient Tobacco Use Status: Never used Tobacco e-Cigarette/Vaping Use: Never Used Second Hand Smoke Exposure: No service: No Current occupational status: retired Cognitive needs: No Hearing needs: No Vision needs: No Questionnaire PHQ-9 Over the last 2 weeks, how often have you been bothered by any of the following problems? 1. Little interest or pleasure in doing things: not at all 2. Feeling down, depressed, or hopeless: not at all 3. Trouble falling or staying asleep, or sleeping too much: not at all 4. Feeling tired or having little energy: not at all 5. Poor appetite or overeating: several days 6. Feeling bad about yourself - or that you are a failure or have let yourself or your family down: not at all 7. Trouble concentrating on things, such as reading the newspaper or watching television: not at all 8. Moving or speaking so slowly that other people could have noticed. Or the opposite - being so fidgety or restless that you have been moving around a lot more than usual: not at all 9. Thoughts that you would be better off or of hurting yourself in some way: not at all Total score: 1 Depression Screening Interpretation: Negative Depression Screening Done: Yes 27422 - PHQ-9 Billing: Yes Source: Developed by Drs. Pete Hampton, Tamiko Zhao, Edd Cuenca and colleagues, with an educational bartolome from [employer]. Thrive Questionnaire Date Thrive assessed: 12/27/23 I am a: Patient What is your living situation today?: I have a steady place to live Within the past 12 months, did the food you bought not last and you didn't have the money to get more?: Never true Within the past 12 months, did you worry whether your food would run out before you got money to buy more?: Never true Do you have trouble paying for medicines?: No Do you have trouble getting transportation to medical appointments?: No Do you have trouble paying your heating and electricity bill?: Yes Do you have trouble taking care of your child, family member or friend?: Yes Do you have trouble with day-to-day activities such as bathing, preparing meals, shopping, managing finances, etc.?: No Are you currently unemployed and looking for a job?: No Are you interested in more education?: No Please select the resources that you would like help with: Utilities Currently or been in a relationship where the following occur: No concerns reported THRIVE Score: 1 AUDIT C Alcohol Use Questionnaire (AUDIT-C) 1. How often do you have a drink containing alcohol?: 2-4 times a month 2. How many drinks containing alcohol do you have on a typical day when you are drinking?: 3 or 4 3. How often do you have six or more drinks on one occasion?: Never Total Score: 3 NICKI-7 AMB Questionnaire NICKI-7 Date NICKI - 7 assessed: 12/27/23 Feeling nervous, anxious, or on edge: 0 = Not at all Not being able to stop or control worryin = Not at all Worrying too much about different things: 0 = Not at all Trouble relaxin = Not at all Being so restless that it is hard to sit still: 0 = Not at all Becoming easily annoyed or irritable: 0 = Not at all Feeling afraid as if something awful might happen: 0 = Not at all Total NICKI-7 score (0-4 normal; 5-9 mild; 10-14 moderate; 15-21 severe): 0 Source: Developed by Drs. Pete Hampton, Tamiko Zhao, Edd Cuenca and colleagues, with an educational bartolome from [employer]. NICKI-7 Assessment Billing NICKI-7 Assessment Tool: NICKI-7 Assessment 88572 Review of Systems Const All systems reviewed & are unremarkable except as noted in HPI and below Card Denies chest pain at rest, Denies chest pain with activity, Denies edema, Denies irregular heart rhythm, Denies claudication, Denies dyspnea, Denies dyspnea on exertion, Denies orthopnea, Denies paroxysmal nocturnal dyspnea and Denies slow heart rate Resp Denies cough, Denies dyspnea and Denies dyspnea on exertion GI Denies abdominal pain, Denies change in bowel habits, Denies excessive flatus, Denies nausea and Denies vomiting Denies urinary hesitancy, Denies urinary incontinence and Denies urinary urgency Neuro Denies lack of coordination Physical exam (Primary Care) Vital Signs: Last Vital Signs Pulse 70 09/25/24 14:26 BP 112/66 09/25/24 14:26 Pulse Ox 98 09/25/24 14:26 Oxygen Delivery Method Room Air 09/25/24 14:26 BMI result Body Mass Index 30.2 Tobacco/Smoking Status: Tobacco use Status Tobacco use date assessed 12/27/23 09/25/24 14:29 Patient Tobacco Use Status Never used Tobacco 09/25/24 14:29 e-Cigarette/Vaping Use Never Used 09/25/24 14:29 PHQ-9: PHQ-9 Score PHQ-9: Total score 1 09/25/24 17:27 Depression Screening Interpretation: Negative Thrive Assessment: Date of Thrive Assessment Date Thrive assessed 12/27/23 09/25/24 14:29 Currently or been in a relationship where the following occur: No concerns reported HENMT Head: Yes normal to inspection, Yes normocephalic and Yes atraumatic Ears: external ears normal Eyes General: appearance normal, both eyes and all related structures Eyelids: Yes eyelids normal Conjunctivae: conjunctivae normal Neck Neck: Yes normal visual inspection and Yes supple Resp Effort & Inspection: normal respiratory effort Auscultation: clear to auscultation bilaterally Cardio Jugular venous distension: no JVD Rate: regular rate Rhythm: regular rhythm Heart sounds: S1 normal heart sound present and S2 normal heart sound present GI Inspection: Yes normal to inspection Palpation (GI): Soft to palpation and nontender Auscultation: normal bowel sounds Skin General skin exam: no rashes or lesions noted Neuro General: no focal motor deficits Extrem General: Yes full ROM Psych Appearance: grossly normal Coding Level of Care Code Est Pt Prev Care >65y(31444) Diagnoses Physical exam Z00.00 Type 2 diabetes mellitus without complication, without long-term current use of insulin E11.9 Diabetes mellitus type: type 2 Diabetes mellitus ocean transportation intermediary insulin use: without ocean transportation intermediary use Diabetes mellitus complication status: without complication Cerebrovascular accident (CVA), unspecified mechanism I63.9 CVA mechanism: unspecified Additional Codes NICKI-7 Assessment Billing - NICKI-7 Assessment Tool: NICKI-7 Assessment [id number] ([id number]) PHQ-9 - 43144 - PHQ-9 Billing: Yes ([id number]) Time Spent (min) 30 Assessment & Plan Assessment & Plan (1) Physical exam: Code(s): Z00.00 - Encounter for general adult medical examination without abnormal findings Category: Medical Plan: Repeat in a year. (2) Diabetes mellitus: Code(s): E11.9 - Type 2 diabetes mellitus without complications Category: Medical Qualifiers: Diabetes mellitus type: type 2 Diabetes mellitus custodial insulin use: without ocean transportation intermediary use Diabetes mellitus complication status: without complication Qualified Code(s): E11.9 - Type 2 diabetes mellitus without complications Plan: Increase insulin. A1c goal is equal or less than 7%. (3) CVA (cerebral vascular accident): Code(s): I63.9 - Cerebral infarction, unspecified Category: Medical Qualifiers: CVA mechanism: unspecified Qualified Code(s): I63.9 - Cerebral infarction, unspecified Plan: Continue aspirin for secondary prophylaxis. Orders: Orders Lipid Panel 4 Months E78.5 - Hyperlipidemia, unspecified Microalbumin, Random (w Creat) 4 Months R80.9 - Proteinuria, unspecified Comprehensive [place]. Panel Fast 4 Months E11.8 - Type 2 diabetes mellitus with unspecified complications Referrals Gastroenterology Referral Z12.11 - Encounter for screening for malignant neoplasm of colon
== END 2024-09-25 15:50 | disposition home or self-care (01) ==
LOC: HO.HMCH 14:09
PROVIDERS: PCP Internal Medicine; Visit Provider Internal Medicine
DX: Z00.00 Encounter for general adult medical examination without abnormal findings (principal); E11.9 Type 2 diabetes mellitus without complications; I63.9 Cerebral infarction, unspecified

== ENCOUNTER → 2024-09-25 14:08 | Outpatient (BNVA) | payer MEDICARE, SELFPAY | PROVIDERS: PCP Internal Medicine; Visit Provider Internal Medicine | DX: Z00.00 Encounter for general adult medical examination without abnormal findings (principal); E11.9 Type 2 diabetes mellitus without complications; I63.9 Cerebral infarction, unspecified | CPT/HCPCS: 96127; 99397 ==

== ENCOUNTER 2024-09-29 14:13 | Outpatient (AMB) | payer MEDICARE, SELFPAY ==
--- NOTE | 2024-09-29 15:01 | A.OFFVIS_ITS ---
Intake Intake Visit Reasons: 60 min-confirmed Division Manager Required: Yes Division Manager Language: Instant Powder Supervisor Services: Division Manager Offered & Declined Division Manager Name: Pt's Accompanied by: Self / Same As Patient Allergies No Known Allergies [No Known Allergies*] Allergy (Verified 09/25/24 15:34) HPI Comprehensive Diabetes Asmnt Most Recent Diabetes Results: Microalb/Creat Ratio 10.1 ug/mg cr (<30) 04/26/24 Cholesterol 135 mg/dL (<200) 04/26/24 HDL Cholesterol 47 mg/dL (>40) 04/26/24 Triglycerides 71 mg/dL (<150) 04/26/24 Creatinine 1.09 mg/dL (0.5-1.4) 04/26/24 Blood Urea Nitrogen 21 mg/dL (9-16) H 04/26/24 Sodium 142 mmol/L (135-145) 04/26/24 Potassium 4.9 mmol/L (3.3-5.1) 04/26/24 Chloride 109 mmol/L (96-108) H 04/26/24 Carbon Dioxide 26 mmol/L (22-29) 04/26/24 Calcium 10.1 mg/dL (8.4-10.2) 04/26/24 AST 14 U/L (5-37) 04/26/24 ALT 15 U/L (0-40) 04/26/24 Total Protein 6.5 g/dL (6.5-8.0) 04/26/24 Albumin 4.1 g/dL (3.5-5.0) 04/26/24 [facility]LY [facility] Medical History Type II diabetes mellitus with complication Onychomycosis Encounter for Medicare annual wellness exam Restless leg syndrome IVA (obstructive sleep apnea) Obesity (BMI 30-39.9) CAD (coronary artery disease) Dyslipidemia Diabetic polyneuropathy associated with type 2 diabetes mellitus Mild non proliferative diabetic retinopathy Essential hypertension Diabetes mellitus GERD (gastroesophageal reflux disease) Sleep apnea CVA (cerebral vascular accident) Surgical History History of angioplasty History of carpal tunnel release Hx of CABG History of surgery Family History Father Stroke Mother Hypertension Maternal Grandmother Ovarian cancer Maternal Aunt Ovarian cancer Brother Colon cancer Social History Housing: Apartment Alcohol intake: current Alcohol intake frequency: a few times a month Alcohol type: beer Patient Tobacco Use Status: Never used Tobacco e-Cigarette/Vaping Use: Never Used Second Hand Smoke Exposure: No service: No Current occupational status: retired Cognitive needs: No Hearing needs: No Vision needs: No Assessment & Plan Assessment & Plan (1) Diabetes mellitus: Code(s): E11.9 - Type 2 diabetes mellitus without complications Qualifiers: Diabetes mellitus type: type 2 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 Assess patient education level/literacy/barriers, works at [employer] Patient questions/concerns, patient is currently using glucometer 1-2 times daily to check glucose, Bret 3 sensors have been unavailable. Called patient's pharmacy, pharmacy reports that there is no expected date that Bret 3 will be back in stock. They are able to get Bret 3+, sent message to provider to send new prescription for Bret 3+. Patient had 1 episode hyperglycemia, on meter download. Recommended to patient if he has reading over 300 unexplained to wash his hands and recheck glucose. It is important to make sure your hands are clean, and free of any food Patient is currently taking Mounjaro 5 mg weekly Jardiance 25 mg daily Tresiba 6 units daily Metformin 1000 mg b.i.d. The patient met all learning objectives and was able to verbalize understanding and provide teach back of education topics discussed . The patient was provided with the opportunity to ask questions and all questions were answered. Topics covered in today?s session included: Medications (If applicable) * Name of medication? * Dosing/administration instructions? * Mechanism of action? * Potential side effects? * Potential adverse reaction and appropriate treatment? * Review onset, peak, duration Assess for concerns re: insurance coverage, cost, barriers to compliance Insulin/Injectables (If applicable) * Storage/care of insulin?? * Injection sites? * Site rotation? * Onset, peak, duration * Drawing up insulin? * Injecting insulin/other injectables? * Sharps disposal Continuous blood glucose monitoring (if applicable) Hypoglycemia and Hyperglycemia * Signs and symptoms? * Causes?? * Treatment? * Preventing hypoglycemia? * When to seek medical attention Target Goals: * Blood glucose targets and how you feel when your blood glucose is in and out of your target ranges. * Monitoring and knowing your A1C. * What can make blood glucose go up and down and preventing high and low blood glucose. * Review of blood sugar targets in expected goal range and outside of expected goal range. * Problem solving and preventing hyper/hypoglycemia. * Sick day management of diabetes. * Using blood sugar results in decision making process in managing diabetes. ?Patient was receptive to information provided and participated in the discussion. Asked?appropriate questions and demonstrated good understanding of the topics discussed.? ? Smart Goal:? Pt will use rule of 15s to treat glucose under 70 mg/dL Patient Response to instructions: Comprehension of Instructions: good Readiness to make changes:? action How confident they feel about making changes:positive Portions of this note were created using voice recognition software, please excuse any words or phrases that may have been misinterpreted. Coding Level of Care Code Est Pt Level 1 (62091) Diagnoses Type 2 diabetes mellitus without complication, without long-term current use of insulin E11.9 Diabetes mellitus type: type 2 Diabetes mellitus mcc insulin use: without mcc use Diabetes mellitus complication status: without complication
== END 2024-09-29 15:04 | disposition home or self-care (01) ==
PROVIDERS: PCP Internal Medicine; Visit Provider Registered Nurse Diabetes Educator
DX: E11.9 Type 2 diabetes mellitus without complications (principal)

== ENCOUNTER → 2024-09-29 14:13 | Outpatient (BNVA) | payer MEDICARE, SELFPAY | PROVIDERS: PCP Internal Medicine; Visit Provider Registered Nurse Diabetes Educator | DX: E11.42 Type 2 diabetes mellitus with diabetic polyneuropathy (principal); E11.3299 Type 2 diabetes mellitus with mild nonproliferative diabetic retinopathy without macular edema, unspecified eye; Z79.4 Long term (current) use of insulin; Z79.84 Long term (current) use of oral hypoglycemic drugs | CPT/HCPCS: 99211 ==

== ENCOUNTER 2024-10-10 15:43 | Outpatient (AMB) | payer MEDICARE, SELFPAY ==
--- NOTE | 2024-10-10 15:48 | A.OFFVIS_ITS ---
Vital Signs 10/10/24 15:51 Height 5 ft 6 in Weight 189 lb 6.033 oz BMI 30.6 BP 104/60 Blood Pressure Location Rt brachial Position Sitting Pulse 82 Pulse Source Pulse Oximeter Intake Visit Reasons: DM/MAILBOX FULL Intake Note: Patient present today to follow up on Type 2 Diabetes Mellitus. Last Diabetic Eye exam: within the year, has yearly exam. Last Podiatry Visit: Patient reports he has an appointment, unsure when. Random Glucose: 86 mg/dl HgA1C: 7.9% 09/09/24 Burn Table Operator Required: Yes Burn Table Operator Language: Box Sealing Inspector Services: Burn Table Operator Present Burn Table Operator Name: Omkar Information Interpreted: non-clinical & clinical Accompanied by: Self / Same As Patient Allergies No Known Allergies [No Known Allergies*] Allergy (Verified 10/10/24 15:53) HPI Comments Details: This is a 69-year-old male with a past medical history of type 2 diabetes, hypertension, coronary artery disease, hyperlipidemia, IVA, CVA, RLS presenting for diabetic management. hand pleater used. Hemoglobin a1c 7.9% 09/09/24. He met with the nutrition educator. Patient's glucometer summary from September 26 to October 10 reviewed: Average glucose 104 mg/dL In range 100% 1.5 readings per day. Highest 175, lowest 78 CGM report 08/12/2024-08/25/2024. GMI 6.3% CGM active 98% Average glucose 127 Glucose variability 27.4% Very high 1% High 7% Target 92% Low 0% His current medication regimen includes Mounjaro 5 mg weekly, Jardiance 25 mg daily, Tresiba 6 units nightly and metformin 1000 mg twice a day. He has done fine since increasing Mounjaro and decreasing Tresiba. He has reduced carbohydrates and sugars in his diet. He is not having any juice or soda. No alcohol or smoking. Hypoglycemia symptoms: None. Hyperglycemia symptoms: none Eye exam: UTD. ?Hypertensive vs DM retinopathy OU. His next appointment is in 11/2024. Microvascular complications: neuropathy, retinopathy Macrovascular complications: CAD, CVA Hypertension: treated with lisinopril 20 mg and metoprolol tartrate 50 mg twice daily. Hyperlipidemia: treated with atorvastatin 80 mg and Zetia 10 mg. ROS: Constitutional: No unexplained weight loss, fever, chills, fatigue or night sweats. Respiratory: No shortness of breath Cardiovascular: No chest pain Neurologic: No headache, dizziness, syncope Endocrine: No cold or heat intolerance. No polyuria or polydipsia. Physical exam: Constitutional: Alert, in no distress. Head: Normocephalic. Eyes: Pupils are equal, round and reactive to light. Extraocular muscles intact. Neck: Supple, Full range of motion. No lymphadenopathy. No palpable thyroid masses. Respiratory: Clear to auscultation. Cardiovascular: S1 S2 regular. No murmurs. [facility] Medical History Type II diabetes mellitus with complication Onychomycosis Encounter for Medicare annual wellness exam Restless leg syndrome IVA (obstructive sleep apnea) Obesity (BMI 30-39.9) CAD (coronary artery disease) Dyslipidemia Diabetic polyneuropathy associated with type 2 diabetes mellitus Mild non proliferative diabetic retinopathy Essential hypertension Diabetes mellitus GERD (gastroesophageal reflux disease) Sleep apnea CVA (cerebral vascular accident) Surgical History History of angioplasty History of carpal tunnel release Hx of CABG History of surgery Family History Father Stroke Mother Hypertension Maternal Grandmother Ovarian cancer Maternal Aunt Ovarian cancer Brother Colon cancer Social History Housing: Apartment Alcohol intake: current Alcohol intake frequency: a few times a month Alcohol type: beer Patient Tobacco Use Status: Never used Tobacco e-Cigarette/Vaping Use: Never Used Second Hand Smoke Exposure: No service: No Current occupational status: retired Cognitive needs: No Hearing needs: No Vision needs: No Physical Exam Vital Signs: BMI result Body Mass Index 30.6 Results Reviewed Results Reviewed: Laboratory Tests 04/26/24 04/26/24 04/29/24 08:10 08:11 14:44 Creatinine 1.09 Estimated GFR > 60 Glucose (Clinic) Hgb A1c (Clinic) 9.4 H Triglycerides 71 Cholesterol 135 LDL Cholesterol, Calc 74 HDL Cholesterol 47 Urine Creatinine 78.56 Urine Microalbumin 8.0 Microalb/Creat Ratio 10.1 07/04/24 16:05 Creatinine Estimated GFR Glucose (Clinic) 199 H Hgb A1c (Clinic) Triglycerides Cholesterol LDL Cholesterol, Calc HDL Cholesterol Urine Creatinine Urine Microalbumin Microalb/Creat Ratio Assessment & Plan Assessment & Plan (1) Type II diabetes mellitus with complication: Code(s): E11.8 - Type 2 diabetes mellitus with unspecified complications Category: Medical Plan In summary this is a 69-year-old male with controlled type 2 diabetes per glucometer data with micro and macrovascular complications. Our goal was to taper off insulin and titrate his Glp1. Increase Mounjaro to 7.5 mg once weekly. Continue Jardiance 25 mg daily. Continue Metformin 1000 mg BID. Trial stopping Tresiba to 6 units nightly. If glucose readings are >200, patient will restart this. Reviewed treatment of hypo/hyperglycemia. Follow up in 4 weeks for Type II DM. Medications: New tirzepatide (Mounjaro) 7.5 mg (0.5 mL) subcut QWEEK 2 mL 3RF Refilled 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 sensor (FreeStyle Bret 3 Plus Sensor device) Apply 1 new sensor every 14 days as directed to monitor blood glucose continuously. 2 ea 11RF 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 meter,continuous (FreeStyle Bret 3 [place]) as directed 1 ea 0RF Discontinued tirzepatide (Mounjaro) Discontinued Reason: Doctor's Order 5 mg (0.5 mL) subcut QWEEK 2 mL 1RF Coding Level of Care Code Est Pt Level 4 (67374) Complex EM visit Add On G2211 Diagnoses Type II diabetes mellitus with complication E11.8
[2024-10-10 15:51] VITALS: BP 104/60; PULSE 82; BMI 30.6
[2024-10-10 16:05] LABS: Glucose, Whole Blood 86 mg/dL (60-115)
== END 2024-10-10 16:17 | disposition home or self-care (01) ==
PROVIDERS: PCP Internal Medicine; Visit Provider Physician Assistant Medical
DX: E11.8 Type 2 diabetes mellitus with unspecified complications (principal)

== ENCOUNTER → 2024-10-10 15:43 | Outpatient (BNVA) | payer MEDICARE, SELFPAY | PROVIDERS: PCP Internal Medicine; Visit Provider Physician Assistant Medical | DX: E11.3293 Type 2 diabetes mellitus with mild nonproliferative diabetic retinopathy without macular edema, bilateral (principal); E11.40 Type 2 diabetes mellitus with diabetic neuropathy, unspecified; Z79.4 Long term (current) use of insulin; Z79.84 Long term (current) use of oral hypoglycemic drugs | CPT/HCPCS: 82947; 99212 ==

== ENCOUNTER 2024-10-20 15:49 | Outpatient (AMB) | payer MEDICARE, SELFPAY ==
--- NOTE | 2024-10-20 16:01 | A.OFFVIS_ITS ---
Vital Signs 10/20/24 16:02 Height 5 ft 6 in Weight 185 lb BMI 29.9 BP 110/72 Blood Pressure Location Lt brachial Position Sitting Pulse 74 Pulse Source Pulse Oximeter Pulse Oximetry (%) 97 Oxygen Delivery Method Room Air Intake Visit Reasons: jah Intake Note: pt is here for follow up and states he is perfect Clay Temperer Required: No Allergies No Known Allergies [No Known Allergies*] Allergy (Verified 10/20/24 16:11) Medication List - Last Reconciled 10/20/24 by Oj Moreland MD aspirin 81 mg PO DAILY 90 days atorvastatin 80 mg PO DAILY 90 days blood sugar diagnostic (OneTouch Ultra Test strips) Test Daily 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 meter (T-RAM SemiconductorTouch Ultra2 Meter) As directed 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 meter,continuous (FreeStyle Bret 3 [place]) as directed 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 sensor (FreeStyle Bret 3 Sensor device) apply new sensor every 14 days as directed 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 sensor (FreeStyle Bret 3 Plus Sensor device) Apply 1 new sensor every 14 days as directed to monitor blood glucose continuously. cholecalciferol (vitamin D3) 50 mcg PO DAILY 90 days CPAP (CPAP Machine/Device) As directed empagliflozin (Jardiance) 25 mg PO DAILY 90 days ezetimibe 10 mg PO DAILY 90 days gabapentin 100 mg PO TID glucose (Dex4 Glucose Quick Dissolve) 16 grams (4 x 4 gram) PO Q15M PRN insulin degludec (Tresiba FlexTouch U-100 insulin) 6 units subcut DAILY lancets (OneTouch Delica Lancets) As directed daily lisinopril 20 mg PO DAILY 90 days metformin 1,000 mg PO BID 90 days metoprolol tartrate 50 mg PO BID pen needle, diabetic (1st Tier Unifine Pentips) Use 1 pen needle once a day tirzepatide (Mounjaro) 7.5 mg (0.5 mL) subcut QWEEK Do you need a note to return to daycare/school/sports/work: No HPI HPI jah: Details: This 69 years old very pleasant gentleman is here for follow-up for . JAH and use of CPAP He uses CPAP very regularly every night sleeps good, and denies any. Daytime sleepiness He remains energetic during the day. He claims that even his blood sugars are much better since he is using CPAP regularly. Offers no complaints related to the CPAP machine. PFSH Medical History Type II diabetes mellitus with complication Onychomycosis Encounter for Medicare annual wellness exam Restless leg syndrome JAH (obstructive sleep apnea) Obesity (BMI 30-39.9) CAD (coronary artery disease) Dyslipidemia Diabetic polyneuropathy associated with type 2 diabetes mellitus Mild non proliferative diabetic retinopathy Essential hypertension Diabetes mellitus GERD (gastroesophageal reflux disease) Sleep apnea CVA (cerebral vascular accident) Surgical History History of angioplasty History of carpal tunnel release Hx of CABG History of surgery Family History Father Stroke Mother Hypertension Maternal Grandmother Ovarian cancer Maternal Aunt Ovarian cancer Brother Colon cancer Social History Housing: Apartment Alcohol intake: current Alcohol intake frequency: a few times a month Alcohol type: beer Patient Tobacco Use Status: Never used Tobacco e-Cigarette/Vaping Use: Never Used Second Hand Smoke Exposure: No service: No Current occupational status: retired Cognitive needs: No Hearing needs: No Vision needs: No Review of Systems Const All systems reviewed & are unremarkable except as noted in HPI and below Eyes Reports no additional complaints ENT Reports no additional complaints Card Reports no additional complaints Resp Reports no additional complaints GI Reports no additional complaints Reports no additional complaints Musc Reports no additional complaints Skin/Breast Reports system reviewed and no additional complaints, except as documented Neuro Reports no additional complaints Psych Reports no additional complaints Physical Exam Vital Signs: Last Vital Signs Pulse 74 10/20/24 16:02 BP 110/72 10/20/24 16:02 Pulse Ox 97 10/20/24 16:02 Oxygen Delivery Method Room Air 10/20/24 16:02 BMI result Body Mass Index 29.9 Const General: healthy appearing, comfortable, no acute distress, alert and awake Orientation/consciousness: patient oriented x3 HEENT Head: Yes normal to inspection General nose exam: No nasal polyps present and No nasal discharge present Face and sinus: Yes sinuses nontender Mouth: oropharynx normal Throat: Yes posterior oropharynx normal Eyes General: appearance normal, both eyes and all related structures Neck Neck: Yes normal visual inspection, Yes no lymphadenopathy, Yes trachea midline and Yes no JVD Thyroid: Thyroid normal Chest Chest palpation & inspection: normal inspection of the chest, normal palpation of entire chest wall and no tenderness Resp Effort & Inspection: normal respiratory effort Auscultation: clear to auscultation bilaterally Percussion: percussion normal Cardio Palpation: normal PMI Rate: regular rate Rhythm: regular rhythm Heart sounds: no gallops and no murmurs GI Palpation (GI): Soft to palpation, nontender, No hepatosplenomegaly present and no masses Auscultation: normal bowel sounds Back/Spine/Pelvis Thoracic/Lumbar Spine: thoracic and lumbar spine normal to inspection Skin General skin exam: no rashes or lesions noted Neuro General: patient oriented x3 and no focal motor deficits Cranial nerves: Yes CN's II-XII intact bilaterally Extrem General: Yes normal to inspection, Yes no clubbing, cyanosis or edema and Yes no calf tenderness Psych Appearance: grossly normal and well kempt Speech and movement: Normal speech and movement present Results Reviewed Results Reviewed: Compliance report for the last 30 nights is reviewed and he has used 100% of the nights. Average use it per night 6 hours 19 minutes. There is a slight air leak issue. Residual AHI 3.0 Assessment & Plan Assessment & Plan (1) Obesity (BMI 30-39.9): Comment: BMI=29.9 ,STABLE, ONLY SLIGHTLY OVERWEIGHT. AND HAS LOST 5 MORE LBS Code(s): E66.9 - Obesity, unspecified Category: Medical Plan: COMMENDED FOR LOSING WEIGHT AND ADVISED TO KEEP ON LOSING MORE. (2) JAH (obstructive sleep apnea): Comment: *He has well established diagnosis of obstructive sleep apnea since 30 years ago. Has been successfully treated with application of CPAP at night. HE IS USING HIS NEW CPAP MACHINE REGULARLY PRESSURE SETTING AUTO PAP MODE 6-20 CM . COMPLIANCE IS EXCELLENT AND HE DEFINITELY BENEFITS FROM THE USE. NASAL MASK, Code(s): G47.33 - Obstructive sleep apnea (adult) (pediatric) Category: Medical Plan: COMMENDED FOR GOOD COMPLIANCE AND ADVISED TO KEEP ON USING THE CPAP EVERY NIGHT. .WILL BE RECHECKED OF TO 6 MONTHS Coding Level of Care Code Est Pt Level 3 (39363) Diagnoses Obesity (BMI 30-39.9) E66.9 JAH (obstructive sleep apnea) G47.33
[2024-10-20 16:02] VITALS: BP 110/72; PULSE 74; O2SAT 97; BMI 29.9
== END 2024-10-20 16:15 | disposition home or self-care (01) ==
PROVIDERS: PCP Internal Medicine; Visit Provider Internal Medicine
DX: E66.9 Obesity, unspecified (principal); G47.33 Obstructive sleep apnea (adult) (pediatric)
CPT/HCPCS: 99213

== ENCOUNTER → 2024-10-20 15:49 | Outpatient (BNVA) | payer MEDICARE, OTHER, SELFPAY | PROVIDERS: PCP Internal Medicine; Visit Provider Internal Medicine | DX: G47.33 Obstructive sleep apnea (adult) (pediatric) (principal); E66.9 Obesity, unspecified; Z68.29 Body mass index [BMI] 29.0-29.9, adult; Z99.89 Dependence on other enabling machines and devices | CPT/HCPCS: 99212 ==

== ENCOUNTER 2024-11-21 15:21 | Outpatient (AMB) | payer MEDICARE, SELFPAY ==
--- NOTE | 2024-11-21 15:26 | A.OFFVIS_ITS ---
Vital Signs 11/21/24 15:27 Height 5 ft 6 in Weight 182 lb 15.739 oz BMI 29.5 BP 116/72 Blood Pressure Location Rt brachial Position Sitting Pulse 75 Pulse Source Pulse Oximeter Intake Visit Reasons: Type II diabetes Intake Note: Patient present today to follow up on Type 2 Diabetes Mellitus. Last Diabetic Eye exam: within the year, has yearly exam. Last Podiatry Visit: Patient reports he has an appointment, unsure when. Most Recent HgA1C: 7.9% 09/09/24 Random Glucose: 115 mg/dL, Today Veterinarian Poultry Required: Yes Veterinarian Poultry Language: Bulker Services: Veterinarian Poultry Present Veterinarian Poultry Name: LISE Buchanan/BROOKE KUMARI Information Interpreted: non-clinical & clinical Accompanied by: Self / Same As Patient Allergies No Known Allergies [No Known Allergies*] Allergy (Verified 10/20/24 16:11) HPI Comments Details: This is a 69-year-old male with a past medical history of type 2 diabetes, hypertension, coronary artery disease, hyperlipidemia, IVA, CVA, RLS presenting for diabetic management. 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 Hemoglobin a1c 7.9% 09/09/24. He met with the museum educator. Reviewed Bret 3 download 10/30/2024 through 11/12/2024 CGM active 98% Average glucose 129 GMI 6.4% Glucose variability 24.3% Very high 0% High 6% Target range 94% No hypoglycemia Occasionally has hyperglycemia in the evening. He had 1 low glucose event with a reading of 65 at 1am. Patient says he was not alerted and did not have symptoms. His current medication regimen includes Mounjaro 7.5 mg weekly, Jardiance 25 mg daily and metformin 1000 mg twice a day. He was able to discontinue Tresiba while maintaining control of his blood sugars and titrating Mounjaro. He has reduced carbohydrates and sugars in his diet. He is not having any juice or soda. No alcohol or smoking. Hypoglycemia symptoms: None. Hyperglycemia symptoms: none Eye exam: UTD. ?Hypertensive vs DM retinopathy OU. His next appointment is in 11/2024. Microvascular complications: neuropathy, retinopathy Macrovascular complications: CAD, CVA Hypertension: treated with lisinopril 20 mg and metoprolol tartrate 50 mg twice daily. Hyperlipidemia: treated with atorvastatin 80 mg and Zetia 10 mg. ROS: Constitutional: No unexplained weight loss, fever, chills, fatigue or night sweats. Respiratory: No shortness of breath Cardiovascular: No chest pain Neurologic: No headache, dizziness, syncope Endocrine: No cold or heat intolerance. No polyuria or polydipsia. Physical exam: Constitutional: Alert, in no distress. Head: Normocephalic. Eyes: Pupils are equal, round and reactive to light. Extraocular muscles intact. Neck: Supple, Full range of motion. No lymphadenopathy. No palpable thyroid masses. Respiratory: Clear to auscultation. Cardiovascular: S1 S2 regular. No murmurs. [facility] Medical History Type II diabetes mellitus with complication Onychomycosis Encounter for Medicare annual wellness exam Restless leg syndrome IVA (obstructive sleep apnea) Obesity (BMI 30-39.9) CAD (coronary artery disease) Dyslipidemia Diabetic polyneuropathy associated with type 2 diabetes mellitus Mild non proliferative diabetic retinopathy Essential hypertension Diabetes mellitus GERD (gastroesophageal reflux disease) Sleep apnea CVA (cerebral vascular accident) Surgical History History of angioplasty History of carpal tunnel release Hx of CABG History of surgery Family History Father Stroke Mother Hypertension Maternal Grandmother Ovarian cancer Maternal Aunt Ovarian cancer Brother Colon cancer Social History Housing: Apartment Alcohol intake: current Alcohol intake frequency: a few times a month Alcohol type: beer Patient Tobacco Use Status: Never used Tobacco e-Cigarette/Vaping Use: Never Used Second Hand Smoke Exposure: No service: No Current occupational status: retired Cognitive needs: No Hearing needs: No Vision needs: No Physical Exam Vital Signs: BMI result Body Mass Index 29.5 Office Procedures Glucose Monitoring Details Details: see HPI 14342 - Glucose monitoring, continuous-physician I&R Procedure code (CPT) selection complete Results Reviewed Results Reviewed: Laboratory Tests 04/26/24 04/26/24 04/29/24 08:10 08:11 14:44 Creatinine 1.09 Estimated GFR > 60 Glucose (Clinic) Hgb A1c (Clinic) 9.4 H Triglycerides 71 Cholesterol 135 LDL Cholesterol, Calc 74 HDL Cholesterol 47 Urine Creatinine 78.56 Urine Microalbumin 8.0 Microalb/Creat Ratio 10.1 07/04/24 16:05 Creatinine Estimated GFR Glucose (Clinic) 199 H Hgb A1c (Clinic) Triglycerides Cholesterol LDL Cholesterol, Calc HDL Cholesterol Urine Creatinine Urine Microalbumin Microalb/Creat Ratio Assessment & Plan Assessment & Plan (1) Type II diabetes mellitus with complication: Code(s): E11.8 - Type 2 diabetes mellitus with unspecified complications Category: Medical Plan In summary this is a 69-year-old male with controlled type 2 diabetes per glucometer data with micro and macrovascular complications. Continue Mounjaro to 7.5 mg once weekly. Continue Jardiance 25 mg daily. Continue Metformin 1000 mg BID. Reviewed treatment of hypo/hyperglycemia. Patient will have labs done in December. Follow up in 3 months for type 2 diabetes. Orders: Orders Hemoglobin A1c 12/10/24 E11.8 - Type 2 diabetes mellitus with unspecified complications AMB Glucose Monitoring Today E11.9 - Type 2 diabetes mellitus without complications Coding Level of Care Code Est Pt Level 4 (03711) Diagnoses Type II diabetes mellitus with complication E11.8 CPT Codes Details - CPT: 38158 - Glucose monitoring, continuous-physician I&R ([id number])
[2024-11-21 15:27] VITALS: BP 116/72; PULSE 75; BMI 29.5
[2024-11-21 15:34] LABS: Glucose, Whole Blood 115 mg/dL (60-115)
== END 2024-11-21 15:48 | disposition home or self-care (01) ==
PROVIDERS: PCP Internal Medicine; Visit Provider Physician Assistant Medical
DX: E11.8 Type 2 diabetes mellitus with unspecified complications (principal)

== ENCOUNTER → 2024-11-21 15:21 | Outpatient (BNVA) | payer MEDICARE, OTHER, SELFPAY | PROVIDERS: PCP Internal Medicine; Visit Provider Physician Assistant Medical | DX: E11.8 Type 2 diabetes mellitus with unspecified complications (principal) | CPT/HCPCS: 82947; 99212 ==

== ENCOUNTER → 2024-12-17 15:21 | Outpatient (BNVA) | payer MEDICARE, MEDICAID, SELFPAY | PROVIDERS: PCP Internal Medicine; Visit Provider Internal Medicine | DX: R10.12 Left upper quadrant pain (principal); E11.9 Type 2 diabetes mellitus without complications; K21.9 Gastro-esophageal reflux disease without esophagitis; I10 Essential (primary) hypertension; E78.5 Hyperlipidemia, unspecified; E55.9 Vitamin D deficiency, unspecified; D64.9 Anemia, unspecified; R10.9 Unspecified abdominal pain; R80.9 Proteinuria, unspecified; E53.8 Deficiency of other specified B group vitamins; Z86.73 Personal history of transient ischemic attack (TIA), and cerebral infarction without residual deficits | CPT/HCPCS: 83036; 96127; 99212 ==

== ENCOUNTER 2024-12-29 15:38 | Outpatient (AMB) | payer MEDICARE, MEDICAID, SELFPAY ==
--- NOTE | 2024-12-29 15:58 | MHC.AMDMED ---
Intake Intake Visit Reasons: 60 min Dianeticist Required: Yes Dianeticist Language: Cake Tester Name: [id number] Information Interpreted: non-clinical & clinical Accompanied by: Self / Same As Patient Allergies No Known Allergies [No Known Allergies*] Allergy (Verified 12/17/24 16:15) HPI Comprehensive Diabetes Asmnt Most Recent Diabetes Results: Microalb/Creat Ratio 10.1 ug/mg cr (<30) 04/26/24 Cholesterol 135 mg/dL (<200) 04/26/24 HDL Cholesterol 47 mg/dL (>40) 04/26/24 Triglycerides 71 mg/dL (<150) 04/26/24 Creatinine 1.09 mg/dL (0.5-1.4) 04/26/24 Blood Urea Nitrogen 21 mg/dL (9-16) H 04/26/24 Sodium 142 mmol/L (135-145) 04/26/24 Potassium 4.9 mmol/L (3.3-5.1) 04/26/24 Chloride 109 mmol/L (96-108) H 04/26/24 Carbon Dioxide 26 mmol/L (22-29) 04/26/24 Calcium 10.1 mg/dL (8.4-10.2) 04/26/24 AST 14 U/L (5-37) 04/26/24 ALT 15 U/L (0-40) 04/26/24 Total Protein 6.5 g/dL (6.5-8.0) 04/26/24 Albumin 4.1 g/dL (3.5-5.0) 04/26/24 [facility] Medical History Type II diabetes mellitus with complication Onychomycosis Encounter for Medicare annual wellness exam Restless leg syndrome IVA (obstructive sleep apnea) Obesity (BMI 30-39.9) CAD (coronary artery disease) Dyslipidemia Diabetic polyneuropathy associated with type 2 diabetes mellitus Mild non proliferative diabetic retinopathy Essential hypertension Diabetes mellitus GERD (gastroesophageal reflux disease) Sleep apnea CVA (cerebral vascular accident) Surgical History History of angioplasty History of carpal tunnel release Hx of CABG History of surgery Family History Father Stroke Mother Hypertension Maternal Grandmother Ovarian cancer Maternal Aunt Ovarian cancer Brother Colon cancer Social History Housing: Apartment Alcohol intake: current Alcohol intake frequency: a few times a month Alcohol type: beer Patient Tobacco Use Status: Never used Tobacco e-Cigarette/Vaping Use: Never Used Second Hand Smoke Exposure: No service: No Current occupational status: retired Cognitive needs: No Hearing needs: No Vision needs: No Assessment & Plan Assessment & Plan (1) Diabetes mellitus: Code(s): E11.9 - Type 2 diabetes mellitus without complications Qualifiers: Diabetes mellitus type: type 2 Diabetes mellitus chcf insulin use: without equipment operator intermodal yard use Diabetes mellitus complication status: without complication Qualified Code(s): E11.9 - Type 2 diabetes mellitus without complications Plan: Patient has been unable to obtain Bret 3+ sensors for approximately 1 month Called patient's pharmacy spoke with pharmacist, they ran prescription through patient's insurance and was approved for Bret 3+ sensor 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
== END 2024-12-29 16:04 | disposition home or self-care (01) ==
PROVIDERS: PCP Internal Medicine; Visit Provider Registered Nurse Diabetes Educator
DX: E11.9 Type 2 diabetes mellitus without complications (principal)

== ENCOUNTER → 2024-12-29 15:38 | Outpatient (BNVA) | payer MEDICARE, MEDICAID, SELFPAY | PROVIDERS: PCP Internal Medicine; Visit Provider Registered Nurse Diabetes Educator | DX: E11.9 Type 2 diabetes mellitus without complications (principal) | CPT/HCPCS: 99211 ==

== ENCOUNTER 2025-01-08 08:17 | Outpatient (REF) | payer MEDICARE, SELFPAY ==
--- NOTE | ~2025-01-08 | XR_ITS ---
EXAMINATION: XR ABDOMEN COMPLETE CLINICAL INDICATION: R10.9 - Unspecified abdominal pain COMPARISON: None available. TECHNIQUE: 2 views of the abdomen. FINDINGS: Abundant stool. Gas throughout the intestine. No intestinal dilatation. No air-fluid levels. Metallic sternal wires no fully included. Spina bifida occulta, S1. Vascular calcifications. XR/XR abdomen min 2V IMPRESSION: No intestinal obstruction pattern. Electronically signed by: David Sung MD 01/08/2025 03:56 PM EST
--- OUTSIDE RECORDS SUMMARY | 2025-01-08 08:35 | XMS_ITS ---
Author Organization [facility] Address [address] [place] [address] Care Team Providers Care Mechanic'S Assistant Name Role Phone Netta Benson Primary Care Provider Unavailab Nishant Encarnacion Jr Unavailable [phone] Tino FLORES, Ha Unavailable Unavailable REASON FOR VISIT Patient presents today for a colon screening Encounters Encounter Location Date Provider Diagnosis [facility] [address] [place] [address] 12/25/2024 Nishant Abreu Jr PLAN OF TREATMENT Next Appt Details Provider Name:Nishant quintero Jr, 04/02/2025 03:55:00 PM, [address] [facility], [address], [place], [address],
--- OUTSIDE RECORDS SUMMARY | 2025-01-08 08:35 | XMS_ITS ---
Author Organization [facility] Address [address] [place] [address] Care Team Providers Care Mortician Supplies Sales Representative Name Role Phone Netta Benson Primary Care Provider Unavailab Nishant Encarnacion Jr Unavailable Tino FLORES, Ha Unavailable Unavailable REASON FOR VISIT NEW INSURANCE Encounters Encounter Location Date Provider Diagnosis [facility] [address] [place] [address] 12/24/2024 Nishant Abreu Jr PLAN OF TREATMENT Next Appt Details Provider Name:Nishant quintero Jr, 04/02/2025 03:55:00 PM, [address], [address], [place], [address],
--- OUTSIDE RECORDS SUMMARY | 2025-01-08 08:35 | XMS_ITS | Patient Health Record ---
Author Organization [facility] Address [address] [place] [address] Care Team Providers Care Telecommunications Officer Name Role Phone Netta Benson Primary Care Provider Unavailab Nishant Encarnacion Jr Unavailable [phone] Tino FLORES, Ha Unavailable Unavailable REASON FOR REFERRAL No Information MEDICATIONS Medication SIG (Take, Route, Fr equency, Duration) Notes Start Date End Date Status Suprep Bowel Prep 1 as directed Orally 1 for 1 dose 05/06/2014 Active SOCIAL HISTORY Sex Assigned At : Social History Observation Description Sex Assigned At Unknown Encounters Encounter Location Date Provider Diagnosis [facility] [address] [place] [address] 12/25/2024 Nishant Abreu Jr [facility] [address] [place] [address] 12/24/2024 Nishant Abreu Jr PLAN OF TREATMENT Next Appt Details Provider Name:Nishant quintero Jr, 04/02/2025 03:55:00 PM, [address] [place] [address], [address], [place], [address], Insurance Providers Payer Name Payer Address Payer Phone Subscriber Number Group Number Insured Name Patient Relationship to Insured Coverage Start Date Coverage End Date Aetna [address] [place] [phone] [id number] EPHRAIM MARTY Self - patient is the insured
[2025-01-08 08:37] LABS: MANUAL DIFF FLAG NO
[2025-01-08 09:03] LABS: Basophils Percent Auto 0.5 % (0-2); Eosinophils Absolute Auto 0.2 X10*3/uL (0.0-0.4); Hematocrit 43.9 % (42.0-52.0); Hemoglobin 14.3 g/dl (14.0-18.0); Imm Gran Abs Auto 0.01 X10*3/uL (0.00-0.03); Imm Gran Pct Auto 0.2 % (0.0-0.4); Lymphocytes Absolute Auto 0.7 X10*3/uL (1.2-4.9); Lymphocytes Percent Auto 12.8 % (20-40); Mean Corpuscular HGB Conc 32.6 g/dl (31.0-36.0); Mean Corpuscular Hemoglobin 27.5 pg (27.0-33.0); Mean Corpuscular Volume 84.4 fL (80.0-98.0); Mean Platelet Volume 9.5 fL (9.4-12.4); Monocytes Absolute Auto 0.5 X10*3/uL (0.1-1.2); Monocytes Percent Auto 8.7 % (2-11); Neutrophils Absolute Auto 4.3 x10*3/uL (2.0-8.3); Neutrophils Percent Auto 73.8 % (45-73); Platelet Count 163 X10*3/uL (160-400); Red Cell Distribution Width 13.2 % (11.0-16.0); White Blood Count 5.8 X10*3/uL (4.8-10.8)
[2025-01-08 09:10] LABS: Estimated Average Glucose 146 mg/dL; Hemoglobin A1C 178.3945 umol/L; Hemoglobin A1c % 6.7 % (<6.0); Total Hemoglobin (HGBA1C) 3619.8459 umol/L
[2025-01-08 09:26] LABS: Creatinine Urine 71.33 mg/dL; Microalbum/Creatinine Ratio Ur 8.4 ug/mg cr (<30)
[2025-01-08 09:28] LABS: Alanine Aminotransferase 17 U/L (0-40); Albumin Level 3.9 g/dL (3.5-5.0); Alkaline Phosphatase 71 U/L (39-117); Anion Gap 11 (12-20); Aspartate Amino Transferase 19 U/L (5-37); Bilirubin Total 0.4 mg/dL (0.0-1.0); Blood Urea Nitrogen 16 mg/dL (9-16); Carbon Dioxide 28 mmol/L (22-29); Chloride 110 mmol/L (96-108); Cholesterol 104 mg/dL (<200); Estimated Glomerular Filt Rate > 60; Glucose Fasting 130 mg/dL (60-99); HDL Cholesterol 48 mg/dL (>40); Iron 64 mcg/dL (45-160); LDL Cholesterol Calculated 45 mg/dL (<100); Percent Iron Saturation 22 % (15-50); Potassium 4.7 mmol/L (3.3-5.1); Sodium 144 mmol/L (135-145); Total Iron Binding Capacity 295 mcg/dL (228-428); Total Protein 6.4 g/dL (6.5-8.0); Triglycerides 58 mg/dL (<150); Unsaturated Iron Binding 231 ug/dL
[2025-01-08 09:33] LABS: Vitamin D 25-OH Total 46.8 ng/mL (>30)
[2025-01-08 09:52] LABS: Folate 12.3 ng/mL (> or = 4.0); Vitamin B12 277 pg/mL (200-900)
== END 2025-01-08 08:18 | disposition home or self-care (01) ==
LOC: HO.LAB 08:17
PROVIDERS: Physician Assistant Medical; PCP Internal Medicine; Visit Provider Internal Medicine
DX: D64.9 Anemia, unspecified (principal); E11.8 Type 2 diabetes mellitus with unspecified complications; E55.9 Vitamin D deficiency, unspecified; E53.8 Deficiency of other specified B group vitamins; E78.5 Hyperlipidemia, unspecified; R80.9 Proteinuria, unspecified
CPT/HCPCS: 36415; 74019; 80053; 80061; 82043; 82306; 82570; 82607; 82746; 83036; 83540; 85025

== ENCOUNTER → 2025-01-08 10:20 | Outpatient (BNV) | payer MEDICARE, SELFPAY | PROVIDERS: PCP Internal Medicine; Visit Provider Radiology Diagnostic Radiology | DX: R19.5 Other fecal abnormalities (principal) | CPT/HCPCS: 74019 ==

== ENCOUNTER 2025-01-12 15:31 | Outpatient (AMB) | payer MEDICARE, MEDICAID, SELFPAY ==
--- NOTE | 2025-01-12 16:02 | A.OFFVIS_ITS ---
Intake Intake Visit Reasons: 30 min CGM review Ointment Mill Tender Required: Yes Ointment Mill Tender Language: Gas Plant Specialist Name: Nellie [id number] Accompanied by: Self / Same As Patient Allergies No Known Allergies [No Known Allergies*] Allergy (Verified 12/17/24 16:15) HPI Comprehensive Diabetes Asmnt Most Recent Diabetes Results: Microalb/Creat Ratio 8.4 ug/mg cr (<30) 01/08/25 Cholesterol 104 mg/dL (<200) 01/08/25 HDL Cholesterol 48 mg/dL (>40) 01/08/25 Triglycerides 58 mg/dL (<150) 01/08/25 Creatinine 0.77 mg/dL (0.5-1.4) 01/08/25 Blood Urea Nitrogen 16 mg/dL (9-16) 01/08/25 Sodium 144 mmol/L (135-145) 01/08/25 Potassium 4.7 mmol/L (3.3-5.1) 01/08/25 Chloride 110 mmol/L (96-108) H 01/08/25 Carbon Dioxide 28 mmol/L (22-29) 01/08/25 Calcium 9.0 mg/dL (8.4-10.2) 01/08/25 AST 19 U/L (5-37) 01/08/25 ALT 17 U/L (0-40) 01/08/25 Total Protein 6.4 g/dL (6.5-8.0) L 01/08/25 Albumin 3.9 g/dL (3.5-5.0) 01/08/25 [facility] Medical History Type II diabetes mellitus with complication Onychomycosis Encounter for Medicare annual wellness exam Restless leg syndrome IVA (obstructive sleep apnea) Obesity (BMI 30-39.9) CAD (coronary artery disease) Dyslipidemia Diabetic polyneuropathy associated with type 2 diabetes mellitus Mild non proliferative diabetic retinopathy Essential hypertension Diabetes mellitus GERD (gastroesophageal reflux disease) Sleep apnea CVA (cerebral vascular accident) Surgical History History of angioplasty History of carpal tunnel release Hx of CABG History of surgery Family History Father Stroke Mother Hypertension Maternal Grandmother Ovarian cancer Maternal Aunt Ovarian cancer Brother Colon cancer Social History Housing: Apartment Alcohol intake: current Alcohol intake frequency: a few times a month Alcohol type: beer Patient Tobacco Use Status: Never used Tobacco e-Cigarette/Vaping Use: Never Used Second Hand Smoke Exposure: No service: No Current occupational status: retired Cognitive needs: No Hearing needs: No Vision needs: No Assessment & Plan Assessment & Plan (1) Diabetes mellitus: Code(s): E11.9 - Type 2 diabetes mellitus without complications Qualifiers: Diabetes mellitus type: type 2 Diabetes mellitus fci insulin use: without exterminator helper termite use Diabetes mellitus complication status: without complication Qualified Code(s): E11.9 - Type 2 diabetes mellitus without complications Plan: Learning objectives: The patient was provided with verbal and written education on the following topics as outlined below. The patient met all learning objectives and was able to verbalize understanding and provide teach back of education topics discussed . The patient was provided with the opportunity to ask questions and all questions were answered. 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 ?Retinopathy: Eye complications ?Retinopathy? is the commonest long-term complication of diabetes. It is leading cause of blindness Besides, Retinopathy- People with diabetes? are also prone to cataract and Glaucoma. ?Neuropathy: Nerve damage -It involves temporary or permanent damage to nerve tissue. Nerve tissue gets injured mainly due to decreased blood flow and rise in blood glucose levels. This damage can lead to pain , or loss of sensation it can also include sexual dysfunction in both men and women ? Infections poor healing: People with diabetes? have increased susceptibility to various infections, such as? pneumonias, pyelonephritis, carbuncles and diabetic ulcers. This may be due to poor blood supply, reduced cellular immunity or hyperglycemia. ?Heart Disease And Stroke: People with diabetes are four times more prone to develop Heart disease than those who do not have diabetes ?Depression: Feeling down once in awhile is normal, but some people feel sadness that just won't go away. Life for them seems hopeless. Feeling this way most of the day for two weeks or more is a sign of serious depression ?Gum Disease: People get gum disease when plaque destroys the gums and bone around the teeth. People with diabetes can get gum disease from having high blood glucose levels for a long time Lifestyle * Work * Travel * Stress management * Problem solving Know your goals * A1C * Blood sugar targets * Blood pressure * Cholesterol/LDL Urine microalbumin Smart Goal Assessment:Pt will use rule of 15s to treat glucose under 70 mg/dL Reports using fruit juice to treat hypoglycemia Pt met goal 100% Educational Materials: The patient was provided with the following written educational materials: ADCES 7 Healthy Behaviors Reducing Risks, how to take care of your feet handouts in Icelandic Patient Response to instructions: Comprehension of Instructions: Good Readiness to make changes: action How confident they feel about making changes: positive Portions of this note were created using voice recognition software, please excuse any words or phrases that may have been misinterpreted. Patient Instructions: Incluir actividad diaria regular. ADA recomienda 30 minutos de ejercicio 5 d?as a la semana. P?rdida de peso, hable con el PCP o el cardi?logo antes de comenzar un nuevo plan. Mida el nivel de az?car en la wayne seg?n las indicaciones; Ayuno y comida m?s deisy de 2hpp. Observe las tendencias en los resultados. Utilice los resultados y eval?e c?mo los alimentos, la actividad f?thierry y los medicamentos afectan los resultados de az?car en la wayne. Lleve el gluc?metro o CGM a la pr?xima visita. Conocer los medicamentos para la diabetes, hawk acci?n, los efectos secundarios, la eficacia, la toxicidad, la dosis prescrita, el momento y la frecuencia de administraci?n apropiados, el efecto de las dosis olvidadas y retrasadas y las instrucciones de almacenamiento, viaje y seguridad. T?cnicas de resoluci?n de problemas para el seguimiento de episodios de hipo/hiperglucemia y tratamientos. Reducir los comportamientos de reducci?n de riesgos, dejar de fumar, ex?menes regulares de ojos, pies y dentales. Coding Level of Care Code Est Pt Level 1 (76905) Diagnoses Type 2 diabetes mellitus without complication, without long-term current use of insulin E11.9 Diabetes mellitus type: type 2 Diabetes mellitus exterminator helper termite insulin use: without exterminator helper termite use Diabetes mellitus complication status: without complication
--- OUTSIDE RECORDS SUMMARY | 2025-01-12 17:46 | XMS_ITS ---
Author Organization [facility] Address [address] [place] [address] Care Team Providers Care Lock Fitter Name Role Phone Netta Benson Primary Care Provider Unavailab Nishant Encarnacion Jr Unavailable Tino FLORES, Ha Unavailable Unavailable REASON FOR VISIT Patient presents today for a colon screening Encounters Encounter Location Date Provider Diagnosis [facility] [address] [place] [address] 12/25/2024 Nishant Abreu Jr PLAN OF TREATMENT Next Appt Details Provider Name:Nishant quintero Jr, 04/02/2025 03:55:00 PM, [address] [facility], [address], [place], [address],
--- OUTSIDE RECORDS SUMMARY | 2025-01-12 17:46 | XMS_ITS ---
Author Organization [facility] Address [address] [place] [address] Care Team Providers Care Cement Handler Name Role Phone Netta Benson Primary Care Provider Unavailab Nishant Encarnacion Jr Unavailable [phone] Tino FLORES, Ha Unavailable Unavailable REASON FOR VISIT NEW INSURANCE Encounters Encounter Location Date Provider Diagnosis [facility] [address] [place] [address] 12/24/2024 Nishant Abreu Jr PLAN OF TREATMENT Next Appt Details Provider Name:Nishant quintero Jr, 04/02/2025 03:55:00 PM, [address], [address], [place], [address],
--- OUTSIDE RECORDS SUMMARY | 2025-01-12 17:46 | XMS_ITS | Patient Health Record ---
Author Organization [facility] Address [address] [place] [address] Care Team Providers Care Inhalation Therapy Aides Teacher Name Role Phone Netta Benson Primary Care [...] Unknown Encounters Encounter Location Date Provider Diagnosis [facility] [address] [place] [address] 12/25/2024 Nishant Abreu Jr [facility] [address] [place] [address] 12/24/2024 Nishant Abreu Jr PLAN OF TREATMENT Next Appt Details Provider Name:Nishant quintero Jr, 04/02/2025 03:55:00 PM, [address] [place] [address], [address], [place], [address], Insurance Providers Payer Name Payer Address Payer Phone Subscriber Number Group Number Insured Name Patient Relationship to Insured Coverage Start Date Coverage End Date Aetna [address] [place] [place] [phone] [id number] EPHRAIM MARTY Self - patient is the insured
== END 2025-01-12 16:04 | disposition home or self-care (01) ==
PROVIDERS: PCP Internal Medicine; Visit Provider Registered Nurse Diabetes Educator
DX: E11.9 Type 2 diabetes mellitus without complications (principal)

== ENCOUNTER → 2025-01-12 15:31 | Outpatient (BNVA) | payer MEDICARE, MEDICAID, SELFPAY | PROVIDERS: PCP Internal Medicine; Visit Provider Registered Nurse Diabetes Educator | DX: E11.9 Type 2 diabetes mellitus without complications (principal) | CPT/HCPCS: 99211 ==

== ENCOUNTER 2025-02-03 16:07 | Outpatient (AMB) | payer MEDICARE, MEDICAID, SELFPAY ==
--- NOTE | 2025-02-03 16:33 | MHC.PC.OV ---
Vital Signs 02/03/25 16:34 Height 5 ft 6 in Weight 177 lb 12.8 oz BMI 28.7 BP 124/64 Blood Pressure Location Lt brachial Position Sitting Pulse 67 Pulse Source Pulse Oximeter Pulse Oximetry (%) 97 Oxygen Delivery Method Room Air Intake Visit Reasons: 4mth f/u Director Of Spa And Guest Experience Required: Yes Director Of Spa And Guest Experience Language: Customer Associate Name: Netta Zamora MD Information Interpreted: non-clinical & clinical Accompanied by: Self / Same As Patient Allergies No Known Allergies [No Known Allergies*] Allergy (Verified 02/03/25 16:57) Medication List - Last Reconciled 02/03/25 by Netta Zamora MD aspirin 81 mg PO DAILY 90 days atorvastatin 80 mg PO DAILY 90 days blood sugar diagnostic (Geodruiduch Ultra Test strips) Test Daily 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 meter (Geodruiduch Ultra2 Meter) As directed 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 meter,continuous (FreeStyle Bret 3 [place]) as directed 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 sensor (FreeStyle Bret 3 Sensor device) apply new sensor every 14 days as directed 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 sensor (FreeStyle Bret 3 Plus Sensor device) Apply 1 new sensor every 14 days as directed to monitor blood glucose continuously. cholecalciferol (vitamin D3) 50 mcg PO DAILY 90 days CPAP (CPAP Machine/Device) As directed empagliflozin (Jardiance) 25 mg PO DAILY 90 days ezetimibe 10 mg PO DAILY 90 days gabapentin 100 mg PO TID glucose (Dex4 Glucose Quick Dissolve) 16 grams (4 x 4 gram) PO Q15M PRN insulin degludec (Tresiba FlexTouch U-100 insulin) 6 units subcut DAILY lancets (OneTouch Delica Lancets) As directed daily lisinopril 20 mg PO DAILY 90 days metformin 1,000 mg PO BID 90 days metoprolol tartrate 50 mg PO BID pen needle, diabetic (1st Tier Unifine Pentips) Use 1 pen needle once a day tirzepatide (Mounjaro) 7.5 mg (0.5 mL) subcut QWEEK Tobacco use date assessed: 02/03/25 Fall risk assessment: 1 Fall in past year Last assessed Fall Risk: 02/03/25 Dental Screening Dental Screen Date: 02/03/25 Did you have a dental visit in the last 12 months?: Yes Did you have a dental problem in the last 6 months where you did not have access to dental care?: No Was dental information given to patient?: Patient has dentist HPI HPI Comments History of Present Illness Details The patient is a 69-year-old male presenting for follow-up of his chronic conditions, including type 2 diabetes mellitus. Current management involves Metformin, Mounjaro, and follow-ups with a interactive media specialist. His last recorded fasting blood sugar was 130 mg/dL, with an A1c of 6.7%, managed using an emphasis on consistent medication and specialist oversight. For hypercholesterolemia, the patient takes Atorvastatin and Zetia. Lab results indicated strong control with an LDL at 45 mg/dL. Hypertension is handled with Lisinopril and Metoprolol, though no specific blood pressure readings were discussed. Constipation is an ongoing issue with management advised via natural dietary changes. The patient has a notable history of surgical intervention for cardiac issues, as seen in imaging findings showing post-surgical chest hardware due to surgical history. [facility] Medical History (Updated 02/03/25 @ 17:27 by Netta Zamora MD) Type II diabetes mellitus with complication Onychomycosis Encounter for Medicare annual wellness exam Restless leg syndrome IVA (obstructive sleep apnea) Obesity (BMI 30-39.9) CAD (coronary artery disease) Dyslipidemia Diabetic polyneuropathy associated with type 2 diabetes mellitus Mild non proliferative diabetic retinopathy Essential hypertension Diabetes mellitus GERD (gastroesophageal reflux disease) Sleep apnea CVA (cerebral vascular accident) Surgical History History of angioplasty History of carpal tunnel release Hx of CABG History of surgery Family History Father Stroke Mother Hypertension Maternal Grandmother Ovarian cancer Maternal Aunt Ovarian cancer Brother Colon cancer Social History Housing: Apartment Alcohol intake: current Alcohol intake frequency: a few times a month Alcohol type: beer Patient Tobacco Use Status: Never used Tobacco e-Cigarette/Vaping Use: Never Used Second Hand Smoke Exposure: No service: No Current occupational status: retired Cognitive needs: No Hearing needs: No Vision needs: Yes Questionnaire Thrive Questionnaire Date Thrive assessed: 02/03/25 I am a: Patient What is your living situation today?: I have a steady place to live Within the past 12 months, did the food you bought not last and you didn't have the money to get more?: Never true Within the past 12 months, did you worry whether your food would run out before you got money to buy more?: Never true Do you have trouble paying for medicines?: No Do you have trouble getting transportation to medical appointments?: No Do you have trouble paying your heating and electricity bill?: Yes Do you have trouble taking care of your child, family member or friend?: Yes Do you have trouble with day-to-day activities such as bathing, preparing meals, shopping, managing finances, etc.?: No Are you currently unemployed and looking for a job?: No Are you interested in more education?: No Please select the resources that you would like help with: Utilities Currently or been in a relationship where the following occur: No concerns reported THRIVE Score: 1 AUDIT C Alcohol Use Questionnaire (AUDIT-C) 1. How often do you have a drink containing alcohol?: Monthly or less 2. How many drinks containing alcohol do you have on a typical day when you are drinking?: 3 or 4 3. How often do you have six or more drinks on one occasion?: Never Total Score: 2 Score Reviewed/Action Taken: No NICKI-7 AMB Questionnaire NICKI-7 Date NICKI - 7 assessed: 02/03/25 Source: Developed by Drs. Pete Hampton, Tamiko Zhao, Edd Cuenca and colleagues, with an educational bartolome from [employer]. Review of Systems Const All systems reviewed & are unremarkable except as noted in HPI and below Card Denies chest pain at rest, Denies chest pain with activity, Denies edema, Denies irregular heart rhythm, Denies claudication, Denies dyspnea, Denies dyspnea on exertion, Denies orthopnea, Denies paroxysmal nocturnal dyspnea and Denies slow heart rate Resp Denies cough, Denies dyspnea and Denies dyspnea on exertion GI Denies abdominal pain, Denies change in bowel habits, Denies excessive flatus, Denies nausea and Denies vomiting Physical exam (Primary Care) Vital Signs: Last Vital Signs Pulse 67 02/03/25 16:34 BP 124/64 02/03/25 16:34 Pulse Ox 97 02/03/25 16:34 Oxygen Delivery Method Room Air 02/03/25 16:34 BMI result Body Mass Index 28.7 Tobacco/Smoking Status: Tobacco use Status Tobacco use date assessed 02/03/25 02/03/25 16:36 Patient Tobacco Use Status Never used Tobacco 02/03/25 16:36 e-Cigarette/Vaping Use Never Used 02/03/25 16:36 Thrive Assessment: Date of Thrive Assessment Date Thrive assessed 02/03/25 02/03/25 16:36 Currently or been in a relationship where the following occur: No concerns reported Resp Effort & Inspection: normal respiratory effort Auscultation: clear to auscultation bilaterally Cardio Jugular venous distension: no JVD Rate: regular rate Rhythm: regular rhythm Heart sounds: S1 normal heart sound present and S2 normal heart sound present Extrem General: Yes full ROM Coding Level of Care Code Est Pt Level 4 (54217) Complex EM visit Add On G2211 Diagnoses Essential hypertension I10 Dyslipidemia E78.5 Type 2 diabetes mellitus without complication, without long-term current use of insulin E11.9 Diabetes mellitus type: type 2 Diabetes mellitus chcf insulin use: without chcf use Diabetes mellitus complication status: without complication Gastroesophageal reflux disease, unspecified whether esophagitis present K21.9 Esophagitis presence: esophagitis presence not specified Chronic idiopathic constipation K59.04 Time Spent (min) 22 Assessment & Plan Assessment & Plan (1) Essential hypertension: Code(s): I10 - Essential (primary) hypertension Category: Medical (2) Dyslipidemia: Code(s): E78.5 - Hyperlipidemia, unspecified Category: Medical (3) Diabetes mellitus: Code(s): E11.9 - Type 2 diabetes mellitus without complications Category: Medical Qualifiers: Diabetes mellitus type: type 2 Diabetes mellitus chcf insulin use: without extermination supervisor use Diabetes mellitus complication status: without complication Qualified Code(s): E11.9 - Type 2 diabetes mellitus without complications (4) GERD (gastroesophageal reflux disease): Code(s): K21.9 - Gastro-esophageal reflux disease without esophagitis Category: Medical Qualifiers: Esophagitis presence: esophagitis presence not specified Qualified Code(s): K21.9 - Gastro-esophageal reflux disease without esophagitis (5) Chronic idiopathic constipation: Code(s): K59.04 - Chronic idiopathic constipation Category: Medical Plan The management will continue current practices for type 2 diabetes mellitus, hypercholesterolemia, and hypertension, with routine monitoring and consultation with relevant specialists. Dietary advice focused on managing constipation through fiber and hydration will continue. No new medications are initiated. Patient was informed and verbally consented to the use of an ambient scribe for clinic note documentation during this visit. During our discussion, we addressed the control of various chronic conditions, such as diabetes, cholesterol, and blood pressure. I emphasized the importance of maintaining current pharmaceutical regimens along with engaging in lifestyle changes to aid in managing constipation and encouraged the patient to increase water and dietary fiber intake. We discussed the patient's weight reduction as a positive trend hinting toward a successful lifestyle modification. Follow-up with the interior design professor is advised to continue monitoring the patient?s diabetes management actively. Patient Instructions: - Continue Metformin and Mounjaro as prescribed for diabetes management. - Maintain use of Atorvastatin and Zetia for cholesterol. - Persist with Lisinopril and Metoprolol dosage for hypertension. - Drink at least two liters of water daily and increase dietary fibers, especially prunes, for constipation. - Monitor weight and report any significant fluctuations. - Follow up regularly with the interactive media specialist.
[2025-02-03 16:34] VITALS: BP 124/64; PULSE 67; O2SAT 97; BMI 28.7
--- OUTSIDE RECORDS SUMMARY | 2025-02-03 18:42 | XMS_ITS | Patient Health Record ---
Author Organization [facility] Address [address] [place] [address] Care Team Providers Care Work Adjustment Instructor Name Role Phone Netta Benson Primary Care Provider Unavailab Nishant Encarnacion Jr Unavailable Tino FLORES, Ha Unavailable Unavailable Reason For Referral No Information Medications Medication SIG (Take, Route, Fr equency, Duration) Notes Start Date End Date Status Suprep Bowel Prep 1 as directed Orally 1 for 1 dose 05/06/2014 Active Encounters Encounter Location Date Provider Diagnosis [facility] [address] [place] [address] 12/24/2024 Nishant Abreu Jr Plan Of Treatment Next Appt Details Provider Name:Nishant quintero Jr, 04/02/2025 03:55:00 PM, [address] [place] [address], [address], [place], [address], Insurance Providers Payer Name Payer Address Payer Phone Subscriber Number Group Number Insured Name Patient Relationship to Insured Coverage Start Date Coverage End Date [employer]et[employer] [address] [facility] [place] [phone] [id number] MARTY YE Self - patient is the insured
--- OUTSIDE RECORDS SUMMARY | 2025-02-03 18:42 | XMS_ITS ---
Author Organization [facility] Address [address] [place] [address] Care Team Providers Care Human Resources Benefits Assistant Name Role Phone Netta Benson Primary Care Provider Unavailab Nishant Encarnacion Jr Unavailable Tino FLORES, Ha Unavailable Unavailable REASON FOR VISIT Patient presents today for a colon screening Encounters Encounter Location Date Provider Diagnosis [facility] [address] [place] [address] 12/25/2024 Nishant Abreu Jr Plan Of Treatment Next Appt Details Provider Name:Nishant quintero Jr, 04/02/2025 03:55:00 PM, [address], [address], [place], [address], Progress Notes * JANA YEOB:[birth year] (69 yo M)Acc No.[id number]:12/25/2024 Progress Notes Patient:?MARTY YE Provider:?Nishant Abreu MD :1955???Age:69 Y???Sex:Male Jer e:12/25/2024 Address:[address] [place] [address], [facility] [id number] Pcp:Netta Zamora Subjective: * Chief Complaints: * ???1. Patient presents today for a colon screening. * Medical History:? Objective: * Vitals:? Assessment: Plan: * Treatment: * * The named appointment provid er may or may not be the originator of this progress note, and it is not deemed complete until electronically signed by the appointment provider. Sign off status: Pending * Provider:?Nishant Abreu MD Date:?0 12/25/2024 Generated for Leanne rollins/Jordin/Mari on:?02/03/2025 06:42 PM EDT
--- OUTSIDE RECORDS SUMMARY | 2025-02-03 18:42 | XMS_ITS ---
Author Organization [facility] Address [address] [place] [address] Care Team Providers Care Resin Shaver Name Role Phone Netta Benson Primary Care Provider Unavailab Nishant Encarnacion Jr Unavailable Tino FLORES, Ha Unavailable Unavailable REASON FOR VISIT NEW INSURANCE Encounters Encounter Location Date Provider Diagnosis [facility] [address] [place] [address] 12/24/2024 Nishant Abreu Jr Plan Of Treatment Next Appt Details Provider Name:Nishant quintero Jr, 04/02/2025 03:55:00 PM, [address], [address], [place], [address], Progress Notes * ART YEMILKAOB:[birth year] (69 yo M)Acc No.[id number]:12/24/2024 Patient:?MARTY YE :1955???Age:69 Y???Sex:Male Address:[address] [place] [address], [facility] [place] [address] * true * Date:? Generated for Printi ng/Fashaileshg/eTransmitting on:?02/03/2025 06:41 PM EDT
== END 2025-02-03 17:06 | disposition home or self-care (01) ==
LOC: HO.HMCH 16:08
PROVIDERS: PCP Internal Medicine; Visit Provider Internal Medicine
DX: I10 Essential (primary) hypertension (principal); E78.5 Hyperlipidemia, unspecified; E11.9 Type 2 diabetes mellitus without complications; K21.9 Gastro-esophageal reflux disease without esophagitis; K59.04 Chronic idiopathic constipation

== ENCOUNTER → 2025-02-03 16:07 | Outpatient (BNVA) | payer MEDICARE, OTHER, SELFPAY | PROVIDERS: PCP Internal Medicine; Visit Provider Internal Medicine | DX: I10 Essential (primary) hypertension (principal); E78.5 Hyperlipidemia, unspecified; E11.9 Type 2 diabetes mellitus without complications; K21.9 Gastro-esophageal reflux disease without esophagitis; K59.04 Chronic idiopathic constipation | CPT/HCPCS: 99212 ==

== ENCOUNTER 2025-02-20 15:14 | Outpatient (AMB) | payer MEDICARE, MEDICAID, SELFPAY ==
--- NOTE | 2025-02-20 15:18 | A.OFFVIS_ITS ---
Vital Signs 02/20/25 15:21 Height 5 ft 6 in Weight 177 lb 14.609 oz BMI 28.7 BP 112/64 Blood Pressure Location Rt brachial Position Sitting Pulse 77 Pulse Source Pulse Oximeter Pulse Oximetry (%) 96 Oxygen Delivery Method Room Air Intake Visit Reasons: Type II diabetes Intake Note: Patient present today to follow up on Type 2 Diabetes Mellitus. Last Diabetic Eye exam: Has an upcoming appointment, has yearly appointments. Last Podiatry Visit: Does not see a Group Fitness Assistant Department Head, has a referral but has not been booked. Random Glucose: 144 mg/dl HgA1C: 6.7% 01/08/25 Sales And Management Trainee Required: Yes Sales And Management Trainee Language: Screen Printing Machine Loader Unloader Services: Sales And Management Trainee Present Sales And Management Trainee Name: Ben [id number] Information Interpreted: non-clinical & clinical Accompanied by: Self / Same As Patient Allergies No Known Allergies [No Known Allergies*] Allergy (Verified 02/20/25 15:23) Medication List - Last Reconciled 02/20/25 by COLLEEN Hall aspirin 81 mg PO DAILY 90 days atorvastatin 80 mg PO DAILY 90 days blood sugar diagnostic (OneTouch Ultra Test strips) Test Daily 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 meter (BlockScoreuch Ultra2 Meter) As directed 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 sensor (FreeStyle Bret 3 Plus Sensor device) Apply 1 new sensor every 14 days as directed to monitor blood glucose continuously. 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,medical administrative,cont (FreeStyle Bret 3 [place]) as directed cholecalciferol (vitamin D3) 50 mcg PO DAILY 90 days CPAP (CPAP Machine/Device) As directed cyanocobalamin (vitamin B-12) 500 mcg PO DAILY empagliflozin (Jardiance) 25 mg PO DAILY 90 days ezetimibe 10 mg PO DAILY 90 days gabapentin 100 mg PO TID glucose (Dex4 Glucose Quick Dissolve) 16 grams (4 x 4 gram) PO Q15M PRN lancets (A[employer] CollegeTouch Delica Lancets) As directed daily lisinopril 20 mg PO DAILY 90 days metformin 1,000 mg PO BID 90 days metoprolol tartrate 50 mg PO BID pen needle, diabetic (1st Tier Unifine Pentips) Use 1 pen needle once a day tirzepatide (Mounjaro) 7.5 mg (0.5 mL) subcut QWEEK HPI Comments Details: This is a 69-year-old male with a past medical history of type 2 diabetes, hypertension, coronary artery disease, hyperlipidemia, IVA, CVA, RLS presenting for diabetic management. professional system administrator present for visit. Hemoglobin a1c 6.7% 01/08/2025. Sees educator senior clinical. Reviewed Bret 3 data from device (download did not work for recent information) CGM active 98% Average glucose 122 GMI 6.4% High 2% Target range 98% No hypoglycemia His current medication regimen includes Mounjaro 7.5 mg weekly, Jardiance 25 mg daily and metformin 1000 mg twice a day. He was able to discontinue Tresiba while maintaining control of his blood sugars and titrating Mounjaro. He has reduced carbohydrates and sugars in his diet. He is not having any juice or soda. No alcohol or smoking. Hypoglycemia symptoms: None. Hyperglycemia symptoms: none Eye exam: UTD. ?Hypertensive vs DM retinopathy OU. He has an upcoming eye appointment. Microvascular complications: neuropathy, retinopathy Macrovascular complications: CAD, CVA Hypertension: treated with lisinopril 20 mg and metoprolol tartrate 50 mg twice daily. Hyperlipidemia: treated with atorvastatin 80 mg and Zetia 10 mg. ROS: Constitutional: No unexplained weight loss, fever, chills, fatigue or night sweats. Respiratory: No shortness of breath Cardiovascular: No chest pain Neurologic: No headache, dizziness, syncope Endocrine: No cold or heat intolerance. No polyuria or polydipsia. Physical exam: Constitutional: Alert, in no distress. Head: Normocephalic. Eyes: Pupils are equal, round and reactive to light. Extraocular muscles intact. Neck: Supple, Full range of motion. No lymphadenopathy. No palpable thyroid masses. Respiratory: Clear to auscultation. Cardiovascular: S1 S2 regular. No murmurs. Toenails: Bilateral onychomycosis of the great toes. Right foot: Warm and well perfused. No clubbing, cyanosis or edema. DP pulse 2+. Decreased vibratory sensation. Intact sensation to monofilament. No open wounds. Left foot: Warm and well perfused. No clubbing, cyanosis or edema. DP pulse 2+. Decreased vibratory sensation. Intact sensation to monofilament. No open wounds. [facility] Medical History Type II diabetes mellitus with complication Onychomycosis Encounter for Medicare annual wellness exam Restless leg syndrome IVA (obstructive sleep apnea) Obesity (BMI 30-39.9) CAD (coronary artery disease) Dyslipidemia Diabetic polyneuropathy associated with type 2 diabetes mellitus Mild non proliferative diabetic retinopathy Essential hypertension Diabetes mellitus GERD (gastroesophageal reflux disease) Sleep apnea CVA (cerebral vascular accident) Surgical History History of angioplasty History of carpal tunnel release Hx of CABG History of surgery Family History Father Stroke Mother Hypertension Maternal Grandmother Ovarian cancer Maternal Aunt Ovarian cancer Brother Colon cancer Social History Housing: Apartment Alcohol intake: current Alcohol intake frequency: a few times a month Alcohol type: beer Patient Tobacco Use Status: Never used Tobacco e-Cigarette/Vaping Use: Never Used Second Hand Smoke Exposure: No service: No Current occupational status: retired Cognitive needs: No Hearing needs: No Vision needs: Yes Physical Exam Vital Signs: Last Vital Signs Pulse 77 02/20/25 15:21 BP 112/64 02/20/25 15:21 Pulse Ox 96 02/20/25 15:21 Oxygen Delivery Method Room Air 02/20/25 15:21 BMI result Body Mass Index 28.7 Results Reviewed Results Reviewed: Laboratory Last Values Glucose (Clinic) 144 mg/dL (60-115) H 02/20/25 15:27 Laboratory Tests 01/08/25 01/08/25 08:32 08:36 Creatinine 0.77 Estimated GFR > 60 Hemoglobin A1c % 6.7 H AST 19 ALT 17 Triglycerides 58 Cholesterol 104 LDL Cholesterol, Calc 45 HDL Cholesterol 48 Vitamin B12 277 Urine Creatinine 71.33 Urine Microalbumin 6.0 Microalb/Creat Ratio 8.4 Assessment & Plan Assessment & Plan (1) Type II diabetes mellitus with complication: Code(s): E11.8 - Type 2 diabetes mellitus with unspecified complications Category: Medical Plan In summary this is a 69-year-old male with controlled type 2 diabetes per glucometer data with micro and macrovascular complications. Continue Mounjaro to 7.5 mg once weekly. Continue Jardiance 25 mg daily. Continue Metformin 1000 mg BID. Start vitamin B12 500 mcg daily. Reviewed treatment of hypo/hyperglycemia. He has glucose tablets at home. Refer to podiatry. Follow up in 3 months for type 2 diabetes. Orders: Referrals Podiatry Referral B35.1 - Tinea unguium, E11.9 - Type 2 diabetes mellitus without complications, Z79.4 - assisted (current) use of insulin Medications: New cyanocobalamin (vitamin B-12) 500 mcg PO DAILY 90 tabs 3RF Refilled metformin 1,000 mg PO BID 180 tabs 3RF 90 days E11.9 - Type 2 diabetes mellitus without complications empagliflozin (Jardiance) 25 mg PO DAILY 90 tabs 3RF 90 days E11.9 - Type 2 diabetes mellitus without complications Discontinued 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 sensor (FreeStyle Bret 3 Sensor device) Discontinued Reason: Doctor's Order apply new sensor every 14 days as directed 2 ea 11RF Coding Level of Care Code Est Pt Level 4 (71193) Complex EM visit Add On G2211 Diagnoses Type II diabetes mellitus with complication E11.8
[2025-02-20 15:21] VITALS: BP 112/64; PULSE 77; O2SAT 96; BMI 28.7
[2025-02-20 15:32] LABS: Glucose, Whole Blood 144 mg/dL (60-115)
--- OUTSIDE RECORDS SUMMARY | 2025-02-20 16:35 | XMS_ITS ---
Author Organization [facility] Address [address] [place] [address] Care Team Providers Care Intelligence Operations Specialist Name Role Phone Netta Benson Primary Care Provider Unavailab Nishant Encarnacion Jr Unavailable Tino FLORES, Ha Unavailable Unavailable REASON FOR VISIT Patient presents today for a colon screening Encounters Encounter Location Date Provider Diagnosis [facility] [address] [place] [address] 12/25/2024 Nishant Abreu Jr Plan Of Treatment Next Appt Details Provider Name:Nishant quintero Jr, 04/02/2025 03:55:00 PM, [address], [address], [place], [address], Progress Notes * JANA YEOB:[birth year] (69 yo M)Acc No.[id number]:12/25/2024 Progress Notes Patient:?MARTY YE Provider:?Nishant Abreu MD :1955???Age:69 Y???Sex:Male Jer e:12/25/2024 Address:[address] [place] [address], [facility] [id number] Pcp:Netta Zamora Subjective: * Chief Complaints: * [...] MD Date:?0 12/25/2024 Generated for Leanne rollins/Jordin/Mari on:?02/20/2025 04:35 PM EDT
--- OUTSIDE RECORDS SUMMARY | 2025-02-20 16:35 | XMS_ITS ---
Author Organization [facility] Address [address] [place] [address] Care Team Providers Care Supervisor Carbon Electrodes Name Role Phone Netta Benson Primary Care Provider Unavailab Nishant Encarnacion Jr Unavailable Tino FLORES, Ha Unavailable Unavailable REASON FOR VISIT NEW INSURANCE Encounters Encounter Location Date Provider Diagnosis [facility] [address] [place] [address] 12/24/2024 Nishant Abreu Jr Plan Of Treatment Next Appt Details Provider Name:Nishant quintero Jr, 04/02/2025 03:55:00 PM, [address], [address], [place], [address], Progress Notes * ART YEMILKAOB:[birth year] (69 yo M)Acc No.[id number]:12/24/2024 Patient:?MARTY YE :1955???Age:69 Y???Sex:Male Address:[address] [place] [address], [facility] [place] [place] [address] * true * Date:? Generated for Printi ng/Fashaileshg/eTransmitting on:?02/20/2025 04:34 PM EDT
--- OUTSIDE RECORDS SUMMARY | 2025-02-20 16:35 | XMS_ITS | Patient Health Record ---
Author Organization [facility] Address [address] [place] [address] Care Team Providers Care Inspector Balance Truing Name Role Phone Netta Benson Primary Care Provider Unavailab Nishant Encarnacion Jr Unavailable Tino FLORES, Ha Unavailable Unavailable Reason For Referral No Information Medications Medication SIG (Take, Route, Fr equency, Duration) Notes Start Date End Date Status Suprep Bowel Prep 1 as directed Orally 1 for 1 dose 05/06/2014 Active Encounters Encounter Location Date Provider Diagnosis [facility] [address] [place] [address] 12/24/2024 Nishant Abreu Jr Plan Of Treatment Next Appt Details Provider Name:Nishant quintero Jr, 04/02/2025 03:55:00 PM, [address] [place] [address], [address], [place], [address], Insurance Providers Payer Name Payer Address Payer Phone Subscriber Number Group Number Insured Name Patient Relationship to Insured Coverage Start Date Coverage End Date [employer] [address] [place] [phone] [id number] MARTY YE Self - patient is the insured
== END 2025-02-20 15:56 | disposition home or self-care (01) ==
LOC: HO.ENCR 15:14
PROVIDERS: PCP Internal Medicine; Visit Provider Physician Assistant Medical
DX: E11.8 Type 2 diabetes mellitus with unspecified complications (principal)

== ENCOUNTER → 2025-02-20 15:14 | Outpatient (BNVA) | payer MEDICARE, MEDICAID, SELFPAY | PROVIDERS: PCP Internal Medicine; Visit Provider Physician Assistant Medical | DX: E11.8 Type 2 diabetes mellitus with unspecified complications (principal) | CPT/HCPCS: 82947; 99212 ==

== ENCOUNTER 2025-05-05 07:02 | Day surgery (SDC) | payer MEDICARE, MEDICAID, SELFPAY ==
[2025-05-01 13:43] VITALS: BMI 28.7
--- NOTE | 2025-05-04 10:22 | P.CONAN_ITS ---
Documented by User: Isabella Hines NP 05/04/25 10:25 HPI - Anesthesia Eval Consult details Narrative: 70yo M for Colonoscopy CAD s/p CABG x 3 2018. Follows [facility]. Stable for 1 year routine f/u at 07/2024 office visit Anesthesia Pre-Procedure Meds Is the patient on any of the following meds?: GLP1/DPP4 and SGLT2 Inhib PMFSH Active Problems Active Problems: All Active Problems Chronic idiopathic constipation (Acute) Abdominal pain (Acute) Physical exam (Acute) Screen for colon cancer (Acute) Right shoulder pain (Acute) Left shoulder pain (Acute) URI (upper respiratory infection) (Acute) Screen for colon cancer (Acute) Left foot pain (Acute) Type II diabetes mellitus with complication (Acute) Onychomycosis (Acute) Encounter for Medicare annual wellness exam (Acute) Restless leg syndrome (Acute) IVA (obstructive sleep apnea) (Acute) Obesity (BMI 30-39.9) (Acute) CAD (coronary artery disease) (Acute) Dyslipidemia (Acute) Essential hypertension (Acute) CVA (cerebral vascular accident) (Acute) Sleep apnea (Acute) GERD (gastroesophageal reflux disease) (Acute) Diabetes mellitus (Acute) Past Medical History Medical History Neuropathy Retinopathy HTN (hypertension) Type II diabetes mellitus with complication Onychomycosis Encounter for Medicare annual wellness exam Restless leg syndrome IVA (obstructive sleep apnea) Obesity (BMI 30-39.9) CAD (coronary artery disease) Dyslipidemia Diabetic polyneuropathy associated with type 2 diabetes mellitus Mild non proliferative diabetic retinopathy Essential hypertension Diabetes mellitus GERD (gastroesophageal reflux disease) Sleep apnea CVA (cerebral vascular accident) Family History Family History Father Stroke Mother Hypertension Maternal Grandmother Ovarian cancer Maternal Aunt Ovarian cancer Brother Colon cancer Surgical History Surgical History History of angioplasty History of carpal tunnel release Hx of CABG History of surgery Social History Social History Housing: Apartment Are you a primary care attendant to a significant other at home: No Do you presently have visiting nurse or other home services: No Alcohol intake: current Alcohol intake frequency: holidays/special occasions only Alcohol type: beer Patient Tobacco Use Status: Never used Tobacco e-Cigarette/Vaping Use: Never Used Second Hand Smoke Exposure: No Use of substances other than those prescribed or required for medical reasons: No Have you been hit, kicked, punched, or otherwise hurt by someone within the past year? If so, by whom?: No Are you DNR?: No Advance Directives: No Advance Directives Information Provided: Yes Poor oral hygiene: Yes service: No Current occupational status: retired Cognitive needs: No Hearing needs: No Vision needs: Yes Meds Allergies Allergy/AdvReac Type Severity Reaction Status Date / Time No Known Allergies Allergy Verified 05/05/25 07:58 [No Known Allergies*] Home Medications ?Medication ?Instructions ?Recorded ?Confirmed ?Last Taken ?Type CPAP (CPAP Machine/Device) #1 ea 01/14/21 02/03/25 Unknown History Exam Height,Weight and Vital Signs: Height 5 ft 6 in Weight 80.739 kg Pertinent Lab Results Pertinent Lab Results: Laboratory Tests 01/08/25 08:36 WBC 5.8 Hgb 14.3 Hct 43.9 Plt Count 163 Sodium 144 Potassium 4.7 Chloride 110 H Carbon Dioxide 28 BUN 16 Creatinine 0.77 Narrative Narrative: ECGECG 12-Lead ? 16:33:01 Ventricular Rate: 81 BPM Atrial Rate: 81 BPM P-R Interval: 160 ms QRS Duration: 132 ms Q-T Interval: 408 ms QTC Calculation(Bazett): 473 ms P [place]: 47 degrees R [place]: -61 degrees T [place]: 40 degrees Normal sinus rhythm Right bundle branch block Left anterior fascicular block Bifascicular block Abnormal ECG When compared with ECG of 19-JUN-2019 13:48, Nonspecific T wave abnormality no longer evident in Lateral leads Confirmed by AVERY HAYWARD MD ([id number]) on 08/04/2024 5:38:38 PM Assessment and Plan Assessment Anesthesia Assessment: Chart Reviewed Documented by User: Sasha Garcia MD 05/05/25 08:34 [facility] Past Medical History Medical History Neuropathy Retinopathy HTN (hypertension) Type II diabetes mellitus with complication Onychomycosis Encounter for Medicare annual wellness exam Restless leg syndrome IVA (obstructive sleep apnea) Obesity (BMI 30-39.9) CAD (coronary artery disease) Dyslipidemia Diabetic polyneuropathy associated with type 2 diabetes mellitus Mild non proliferative diabetic retinopathy Essential hypertension Diabetes mellitus GERD (gastroesophageal reflux disease) Sleep apnea CVA (cerebral vascular accident) Family History Family History Father Stroke Mother Hypertension Maternal Grandmother Ovarian cancer Maternal Aunt Ovarian cancer Brother Colon cancer Surgical History Surgical History History of angioplasty History of carpal tunnel release Hx of CABG History of surgery History of Problems with Anesthesia: No Social History Social History Housing: Apartment Are you a primary care attendant to a significant other at home: No Do you presently have visiting nurse or other home services: No Alcohol intake: current Alcohol intake frequency: holidays/special occasions only Alcohol type: beer Patient Tobacco Use Status: Never used Tobacco e-Cigarette/Vaping Use: Never Used Second Hand Smoke Exposure: No Use of substances other than those prescribed or required for medical reasons: No Have you been hit, kicked, punched, or otherwise hurt by someone within the past year? If so, by whom?: No Are you DNR?: No Advance Directives: No Advance Directives Information Provided: Yes Poor oral hygiene: Yes service: No Current occupational status: retired Cognitive needs: No Hearing needs: No Vision needs: Yes Meds Allergies Allergy/AdvReac Type Severity Reaction Status Date / Time No Known Allergies Allergy Verified 05/05/25 07:58 [No Known Allergies*] Home Medications ?Medication ?Instructions ?Recorded ?Confirmed ?Last Taken ?Type CPAP (CPAP Machine/Device) #1 ea 01/14/21 02/03/25 Unknown History Exam Airway Mallampati Class: III TM Dist: >3cm Neck ROM: Full Denture: Upper and Lower Loose/Missing/Broken Teeth: Yes, Upper and Lower Heart: RRR Lungs: CTA Assessment and Plan Assessment Anesthesia Assessment: Anesthesia Plan Discussed Final Anesthetic Review History of Problems with Anesthesia: No NPO: Yes ASA Class: III Final Preanesthetic Review: Meds/Allgs Chart Reviewed, Consent Obtained/Reviewed and Anes Risks/Benef Reviewed Patient Risk: Intermediate Procedure Risk: Low Anesthetic Plan Anesthetic Plan: MAC: Disposition: Standard PACU
[2025-05-05 08:01] VITALS: BP 134/75; PULSE 71; RESP 14; TEMP 36.6; O2SAT 99; BMI 27.4
[2025-05-05] MEDS: Lactated Ringers 1,000 ML 100 ML IVCONT (08:10)
--- NOTE | 2025-05-05 08:26 | MHC.SHP ---
Pre-Procedural Eval Section A - 24 Hr Update-Section A only Date of Service: 05/05/25 Section B - Complete if H&P > 30 days Chief Complaint: screening Details of Present Illness: see H&P no chages Relevant Family History (Specify if Yes): No Relevant Social History: None Present Medications: see Short Stay Collaborative assessment Medical History: No relevant PMH History of Previous Operations: No relevant previous surgery Allergies: Allergies Allergy/AdvReac Type Severity Reaction Status Date / Time No Known Allergies Allergy Verified 05/05/25 07:58 [No Known Allergies*] Review of Systems Sugical H&P ROS: Negative: Constitution, Cardiovascular, Respiratory, Neurological, Psychiatric, Hem-Onc, Allergic/Immunologic, Gastrointestinal, Genitourinary, Musculoskeletal, Integumentary, Endocrine and Eyes/Ears/Nose/Throat Exam Surgical H&P Exam: Normal: HEENT, Normal: Heart, Normal: Lungs, Normal: Extremities, Normal: Abdomen, Normal: Skin and Normal: Neurological Plan Diagnosis/Plan: Unchanged I have reviewed the history and physical and performed a pertinent physical examination on my patient. No changes have occurred unless specified. Time Spent With Patient Time: Total time managing care of this patient today ____ minutes.
[2025-05-05 09:15] VITALS: BP 96/61; PULSE 68; RESP 18; TEMP 36.1; O2SAT 100
[2025-05-05 09:30] VITALS: BP 138/78; PULSE 65; RESP 16; TEMP 36.1; O2SAT 99
--- NOTE | 2025-05-05 10:33 | OP_ITS ---
DATE OF SERVICE: 05/05/2025 SURGEON: Nishant Abreu MD INDICATIONS: Colon cancer screening. PREOPERATIVE DIAGNOSIS: POSTOPERATIVE DIAGNOSIS: PROCEDURE PERFORMED: Colonoscopy to the terminal ileum with biopsy. ESTIMATED BLOOD LOSS: COMPLICATIONS: ANESTHESIA: Monitored anesthesia care. ASSISTANTS: SPECIMENS: DESCRIPTION OF PROCEDURE: A history and physical was performed. The risks and benefits of the procedure were explained to the patient. Informed consent was obtained. The patient was placed in the left lateral decubitus position. A digital rectal exam was performed and was found to be normal. The Olympus pediatric video colonoscope was introduced into the cecum. The cecum was identified by transillumination, palpation, identification of ileocecal valve. Examination was performed. The scope was removed. He tolerated the procedure well and was returned to recovery in stable condition. FINDINGS: The terminal ileum was examined and appeared normal. Visualized colonic mucosa was normal. The quality of the prep was good. A single polyp was identified and removed using a biopsy forceps. This was located at 55 cm from the anal verge. There was mild diverticulosis scattered throughout the colon. No other polyps were seen. Retroflexed examination showed small internal hemorrhoids. IMPRESSION: Colon polyp. RECOMMENDATION: Follow up the biopsy results. MD ALICIA Pimentel/KENY / [phone]
== END 2025-05-05 09:51 | disposition home or self-care (01) ==
PROVIDERS: PCP Internal Medicine; Visit Provider Internal Medicine Gastroenterology
PROC: 0DJD8ZZ Inspection of Lower Intestinal Tract, Via Natural or Artificial Opening Endoscopic (ICD-10-PCS; CPT 45378; principal; 2025-05-05 08:20)
DX: Z12.11 Encounter for screening for malignant neoplasm of colon (principal); K63.5 Polyp of colon; K57.30 Diverticulosis of large intestine without perforation or abscess without bleeding; K64.8 Other hemorrhoids; I10 Essential (primary) hypertension; I25.10 Atherosclerotic heart disease of native coronary artery without angina pectoris; Z95.1 Presence of aortocoronary bypass graft; Z95.5 Presence of coronary angioplasty implant and graft; E78.5 Hyperlipidemia, unspecified; D50.9 Iron deficiency anemia, unspecified; H35.00 Unspecified background retinopathy; G25.81 Restless legs syndrome; G47.33 Obstructive sleep apnea (adult) (pediatric); E11.3299 Type 2 diabetes mellitus with mild nonproliferative diabetic retinopathy without macular edema, unspecified eye; E11.42 Type 2 diabetes mellitus with diabetic polyneuropathy; Z79.84 Long term (current) use of oral hypoglycemic drugs; Z79.85 Long-term (current) use of injectable non-insulin antidiabetic drugs; Z99.89 Dependence on other enabling machines and devices
CPT/HCPCS: 45380; 88305; J2003; J2704

== ENCOUNTER 2025-05-26 09:25 | Outpatient (AMB) | payer MEDICARE, MEDICAID, SELFPAY ==
--- NOTE | 2025-05-26 09:34 | MHC.OFFVIS ---
Vital Signs 05/26/25 09:40 Height 5 ft 6 in Weight 178 lb 9.191 oz BMI 28.8 BP 122/60 Blood Pressure Location Rt brachial Position Sitting Pulse 60 Pulse Source Pulse Oximeter Pulse Oximetry (%) 98 Oxygen Delivery Method Room Air Intake Visit Reasons: T2DM Intake Note: Patient present today to follow up on Type 2 Diabetes Mellitus. Last Diabetic Eye exam: Has an appt coming up but does not recall when is booked. Last Podiatry Visit: Does not see a Hydraulic Tester, has a referral but has not been booked. HgA1C: 7.1%, 05/26/2025 Random Glucose: 135 mg/dL Motor Adjuster Required: No Motor Adjuster Services: Motor Adjuster Offered & Declined Motor Adjuster Name: LISE Newman Accompanied by: Self / Same As Patient Allergies No Known Allergies (No Known Allergies*) Allergy (Verified 05/26/25 09:35) Medication List - Last Reconciled 05/26/25 by COLLEEN Hall aspirin 81 mg PO DAILY 90 days atorvastatin 80 mg PO DAILY 90 days blood sugar diagnostic ([employer] Ultra Test strips) Test Daily 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 meter ([employer] Ultra2 Meter) As directed 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 sensor (FreeStyle Bret 3 Plus Sensor device) Apply 1 new sensor every 14 days as directed to monitor blood glucose continuously. 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,cont (FreeStyle Bret 3 Dixon) as directed cholecalciferol (vitamin D3) 50 mcg PO DAILY 90 days CPAP (CPAP Machine/Device) As directed cyanocobalamin (vitamin B-12) 500 mcg PO DAILY empagliflozin (Jardiance) 25 mg PO DAILY 90 days ezetimibe 10 mg PO DAILY 90 days gabapentin 100 mg PO TID glucose (Dex4 Glucose Quick Dissolve) 16 grams (4 x 4 gram) PO Q15M PRN lancets (BawteTouch Delica Lancets) As directed daily lisinopril 20 mg PO DAILY 90 days metformin 1,000 mg PO BID 90 days metoprolol tartrate 50 mg PO BID pen needle, diabetic (1st Tier Unifine Pentips) Use 1 pen needle once a day tirzepatide (Mounjaro) 5 mg (0.5 mL) subcut QWEEK HPI Comments Details: This is a 70-year-old male with a past medical history of type 2 diabetes, hypertension, coronary artery disease, hyperlipidemia, IVA, CVA, RLS presenting for diabetic management. 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 Hemoglobin a1c 7.1% today 05/26/2025 up from 6.7% 01/08/2025. Reviewed Bret 3 data May 01 to May 14 (he has to medicinal plant picker his refill of sensors at the pharmacy) CGM active 98% Average glucose 154 GMI 7% Glucose variability 31.8% Very high 4% Target range 73% High 23% 0% hypoglycemia He has hyperglycemia late morning and in the evening. His current medication regimen includes Mounjaro 7.5 mg weekly, Jardiance 25 mg daily and metformin 1000 mg twice a day. He was able to discontinue Tresiba while maintaining control of his blood sugars and titrating Mounjaro, but he ran out of Mounjaro 2-3 weeks ago. He just picked up the refill but reports that his appetite was significantly decreased on the medication. He has reduced carbohydrates and sugars in his diet. He is not having any juice or soda. No alcohol or smoking. Hypoglycemia symptoms: None. Hyperglycemia symptoms: none Eye exam: UTD. ?Hypertensive vs DM retinopathy OU. He has an upcoming eye appointment. Microvascular complications: neuropathy, retinopathy Macrovascular complications: CAD, CVA Hypertension: treated with lisinopril 20 mg and metoprolol tartrate 50 mg twice daily. Hyperlipidemia: treated with atorvastatin 80 mg and Zetia 10 mg. ROS: Constitutional: No unexplained weight loss, fever, chills, fatigue or night sweats. Respiratory: No shortness of breath Cardiovascular: No chest pain Neurologic: No headache, dizziness, syncope Endocrine: No cold or heat intolerance. No polyuria or polydipsia. Physical exam: Constitutional: Alert, in no distress. Head: Normocephalic. Eyes: Pupils are equal, round and reactive to light. Extraocular muscles intact. Neck: Supple, Full range of motion. No lymphadenopathy. No palpable thyroid masses. Respiratory: Clear to auscultation. Cardiovascular: S1 S2 regular. No murmurs. COUNT INCLUDES THE [facility] Medical History Neuropathy Retinopathy HTN (hypertension) Type II diabetes mellitus with complication Onychomycosis Encounter for Medicare annual wellness exam Restless leg syndrome IVA (obstructive sleep apnea) Obesity (BMI 30-39.9) CAD (coronary artery disease) Dyslipidemia Diabetic polyneuropathy associated with type 2 diabetes mellitus Mild non proliferative diabetic retinopathy Essential hypertension Diabetes mellitus GERD (gastroesophageal reflux disease) Sleep apnea CVA (cerebral vascular accident) Surgical History History of angioplasty History of carpal tunnel release Hx of CABG History of surgery Family History Father Stroke Mother Hypertension Maternal Grandmother Ovarian cancer Maternal Aunt Ovarian cancer Brother Colon cancer Social History Housing: Apartment Are you a primary geriatric personal care aide to a significant other at home: No Do you presently have visiting nurse or other home services: No Alcohol intake: current Alcohol intake frequency: holidays/special occasions only Alcohol type: beer Patient Tobacco Use Status: Never used Tobacco e-Cigarette/Vaping Use: Never Used Second Hand Smoke Exposure: No service: No Current occupational status: retired Cognitive needs: No Hearing needs: No Vision needs: Yes Physical Exam Vital Signs: Last Vital Signs Pulse 60 05/26/25 09:40 BP 122/60 05/26/25 09:40 Pulse Ox 98 05/26/25 09:40 Oxygen Delivery Method Room Air 05/26/25 09:40 BMI result Body Mass Index 28.8 Office Procedures Glucose Monitoring Details Details: See HPI 00645 - Glucose monitoring, continuous-physician I&R Procedure code (CPT) selection complete Results AMB Hemoglobin A1c AMB Hemoglobin A1c 7.1 % Last Edit by LISE Newman on 05/26/25 09:55 Results Reviewed Results Reviewed: Laboratory Last Values Glucose (Clinic) 135 mg/dL (60-115) H 05/26/25 09:45 Hgb A1c (Clinic) 7.1 % (4.0-6.0) H 05/26/25 09:37 Assessment & Plan Assessment & Plan (1) Type II diabetes mellitus with complication: Code(s): E11.8 - Type 2 diabetes mellitus with unspecified complications Category: Medical Plan In summary this is a 69-year-old male with controlled type 2 diabetes per glucometer data with micro and macrovascular complications. Reduce Mounjaro to 5 mg weekly. If appetite suppression is still problematic on this dose we can consider switching to an alternative GLP 1. Continue Jardiance 25 mg daily. Continue Metformin 1000 mg BID. Discussed pathophysiology of Type II Diabetes Mellitus with the patient in detail.? I explained the longterm risks and complications associated with uncontrolled diabetes including nephropathy, neuropathy, peripheral vascular disease, retinopathy, increased risk of heart disease and stroke.? Reviewed treatment of hypo/hyperglycemia. He has glucose tablets at home. Follow up in 3 months for type 2 diabetes. Orders: Orders AMB Hemoglobin A1c Today E11.8 - Type 2 diabetes mellitus with unspecified complications AMB Glucose Monitoring Today E11.9 - Type 2 diabetes mellitus without complications Creatinine Today E11.9 - Type 2 diabetes mellitus without complications, E78.5 - Hyperlipidemia, unspecified, I10 - Essential (primary) hypertension, I25.10 - Atherosclerotic heart disease of [place] coronary artery without angina pectoris Alanine Aminotransferase Today E78.5 - Hyperlipidemia, unspecified, I10 - Essential (primary) hypertension, I25.10 - Atherosclerotic heart disease of [place] coronary artery without angina pectoris Aspartate Amino Transferase Today E78.5 - Hyperlipidemia, unspecified, I10 - Essential (primary) hypertension, I25.10 - Atherosclerotic heart disease of [place] coronary artery without angina pectoris Lipid Panel Today E78.5 - Hyperlipidemia, unspecified, I10 - Essential (primary) hypertension, I25.10 - Atherosclerotic heart disease of [place] coronary artery without angina pectoris Vitamin B12 Today E78.5 - Hyperlipidemia, unspecified, I10 - Essential (primary) hypertension, I25.10 - Atherosclerotic heart disease of [place] coronary artery without angina pectoris, Z91.89 - Other specified personal risk factors, not elsewhere classified Medications: New tirzepatide (Mounjaro) 5 mg (0.5 mL) subcut QWEEK 2 mL 5RF Refilled metformin 1,000 mg PO BID 180 tabs 1RF 90 days E11.9 - Type 2 diabetes mellitus without complications empagliflozin (Jardiance) 25 mg PO DAILY 90 tabs 1RF 90 days E11.9 - Type 2 diabetes mellitus without complications Discontinued tirzepatide (Mounjaro) Discontinued Reason: Doctor's Order 7.5 mg (0.5 mL) subcut QWEEK 4 mL 3RF Coding Level of Care Code Est Pt Level 4 (33172) Diagnoses Type II diabetes mellitus with complication E11.8 CPT Codes Details - CPT: 84924 - Glucose monitoring, continuous-physician I&R ([id number])
[2025-05-26 09:40] VITALS: BP 122/60; PULSE 60; O2SAT 98; BMI 28.8
[2025-05-26 09:51] LABS: Glucose, Whole Blood 135 mg/dL (60-115)
--- OUTSIDE RECORDS SUMMARY | 2025-05-26 09:52 | XMS_ITS | Patient Health Record ---
Author Organization [facility] Address [address] [place] [address] Care Team Providers Care Surface Supply Breathing Apparatus Name Role Phone Netta Benson Primary Care Provider UnavailNishant Rosa Jr Unavailable Allergies No Known Allergies Results Component Value Reference Range Notes Pathology Reviewed date:05/19/2025 04:05:48 PM Interpretation: Performing Lab:[facility], [address] [place] [id number] Notes/Report: Reason For Referral No Information Medications Medication SIG (Take, Route, Frequency, Duration) Notes Start Date End Date Status Jardiance 25 MG 1 tablet Orally Once a day Active Atorvastatin Calcium 40 MG 1 tablet Orally Once a day Active Mounjaro 7.5 MG/0.5ML as directed Subcut aneous once a week Active metFORMIN HCl 1000 MG 1 tablet with a me al Orally twice a day Active Metoprolol Tartrate 50 MG 1 tablet with food Orally Twice a day Active Lisinopril 20 MG 1 tablet Orally Once a day Active Gabapentin 100 MG 1 capsule at bedtime Orally twice a day Active Aspirin 81 81 MG 1 tablet Orally Once a day Active Social History Tobacco Use: Social History Observation Description Date Details (start date - stop date) Never Smoker NA - NA Tobacco Control (Standard) Question Answer Notes Tobacco use: Nonsmoker AUDIT-C (Standard) Question Answer Notes Did you have a drink contain ing alcohol in the past year? Yes How often did you have a dri nk containing alcohol in the past year? Never (0 point) How many drinks did you have on a typical day when you were drinking in the past year? 1 or 2 drinks (0 point) How often did you have six o r more drinks on one occasion in the past year? Never (0 point) Points 0 Interpretation Negative Problems Problem Type SNOMED Code ICD Code Onset Dates Problem Status W/U Status Risk Notes Problem Encounter for screening for malignant neoplasm of colon (Z12.11) Active confirmed Problem H/O: high risk medication (832602665) High risk medication use (Z79.899) Active confirmed Vital Signs Blood pressure diastolic 77 mm Hg 04/02/2025 Height 66 in 04/02/2025 Blood pressure systolic 111 mm Hg 04/02/2025 Weight 178 lbs 04/02/2025 BMI 28.73 kg/m2 04/02/2025 Encounters Encounter Location Date Provider Diagnosis [facility] [place] Out[place] [address] [place] [phone] 05/05/2025 Nishant Abreu Jr [facility] [address] [place] [phone] 04/02/2025 Nishant Abreu Jr Encounter for screening for malignant neoplasm of colon Z12.11 ; Encounter for other preprocedural examination Z01.818 and High risk medication use Z79.899 [facility] [address] [place] [phone] 12/24/2024 Nishant Abreu Jr [facility] [address] [place] [phone] 04/03/2025 Nishant Abreu Jr [facility] [address] [place] [phone] 05/19/2025 Nishant Abreu Jr Assessments Encounter Date Diagnosis (ICD Code) Assessment Notes Treatment Notes Treatment Clinical Notes Section Notes 04/02/2025 Encounter for screening for malignant neoplasm of colon (ICD-10 - Z12.11) We discussed colonoscopy today. We discussed risks and benefits of the procedure today. He understands these and agrees to proceed. He will stop aspirin and Mounjaro 1 week before the procedure. He will stop metformin 1 day before the procedure and Jardiance 3 days before the procedure. 04/02/2025 Encounter for other preprocedural examination (ICD-10 - Z01.818) We discussed colonoscopy today. We discussed risks and benefits of the procedure today. He understands these and agrees to proceed. He will stop aspirin and Mounjaro 1 week before the procedure. He will stop metformin 1 day before the procedure and Jardiance 3 days before the procedure. 04/02/2025 High risk medication use (ICD-10 - Z79.899) We discussed colonoscopy today. We discussed risks and benefits of the procedure today. He understands these and agrees to proceed. He will stop aspirin and Mounjaro 1 week before the procedure. He will stop metformin 1 day before the procedure and Jardiance 3 days before the procedure. Plan Of Treatment Future Test Test Name Order Date COLONOSCOPY 04/02/2025 Insurance Providers Payer Name Payer Address Payer Phone Subscriber Number Group Number Insured Name Patient Relationship to Insured Coverage Start Date Coverage End Date [facility] [address] [place], [place] [id number] PCP MARTY YE Self - patient is the insured 5 Medical (General) History Medical History History ICD Code type II diabetes restless leg syndrome hypertension dyslipidemia CAD Retinopathy and neuropathy IVA/CPAP CVA Surgical History Surgery Date(Month/Year) CABG 2019 carpal tunnel angioplasty
== END 2025-05-26 10:21 | disposition home or self-care (01) ==
LOC: HO.ENCR 09:26
PROVIDERS: PCP Internal Medicine; Visit Provider Physician Assistant Medical
DX: E11.8 Type 2 diabetes mellitus with unspecified complications (principal)

== ENCOUNTER → 2025-05-26 09:25 | Outpatient (BNVA) | payer MEDICARE, MEDICAID, SELFPAY | PROVIDERS: PCP Internal Medicine; Visit Provider Physician Assistant Medical | DX: E11.42 Type 2 diabetes mellitus with diabetic polyneuropathy (principal); E11.3293 Type 2 diabetes mellitus with mild nonproliferative diabetic retinopathy without macular edema, bilateral; I10 Essential (primary) hypertension; I25.10 Atherosclerotic heart disease of native coronary artery without angina pectoris; E78.5 Hyperlipidemia, unspecified; Z79.4 Long term (current) use of insulin; Z79.84 Long term (current) use of oral hypoglycemic drugs | CPT/HCPCS: 82947; 83036; 99212 ==

== ENCOUNTER 2025-06-04 09:08 | Outpatient (AMB) | payer MEDICARE, MEDICAID, SELFPAY ==
--- OUTSIDE RECORDS SUMMARY | 2025-06-04 09:30 | XMS_ITS | Patient Health Record ---
Author Organization [facility] Address [address] [place] [address] Care Team Providers Care Channel Development Manager Name Role Phone Netta Benson Primary Care Provider UnavailNishant Rosa Jr Unavailable Allergies No Known Allergies Results Component Value Reference Range Notes Pathology Reviewed date:05/19/2025 04:05:48 PM Interpretation: Performing Lab:[facility], [address] [place] [phone] Notes/Report: Reason For Referral No Information Medications [...] Problem Status W/U Status Risk Notes Problem Screening for malignant neoplasm of colon (220344292) Encounter for screening for malignant neoplasm of colon (Z12.11) Active confirmed Problem H/O: high risk medication (186738549) High risk medication use (Z79.899) Active confirmed Vital Signs Blood pressure diastolic 77 mm Hg 04/02/2025 Height 66 in 04/02/2025 Blood pressure systolic 111 mm Hg 04/02/2025 Weight 178 lbs 04/02/2025 BMI 28.73 kg/m2 04/02/2025 Encounters Encounter Location Date Provider Diagnosis [facility] [place] Outpatient [address] [place] [phone] 05/05/2025 Nishant Abreu Jr Colon cancer screening Z12.11 and Colon polyps K63.5 [facility] [address] [facility] [address] [place] [phone] 04/02/2025 Nishant Abreu Jr Encounter for screening for malignant neoplasm of colon Z12.11 ; Encounter for other preprocedural examination Z01.818 and High risk medication use Z79.899 [facility] [address] [phone] 12/24/2024 Nishant Abreu Jr [facility] [address] [facility] [address] [phone] 04/03/2025 Nishant Abreu Jr [facility] [address] [phone] 05/19/2025 Nishant Abreu Jr Assessments Encounter Date Diagnosis (ICD Code) Assessment Notes Treatment Notes Treatment Clinical Notes Section Notes 05/05/2025 Colon cancer screening (ICD-10 - Z12.11) 05/05/2025 Colon polyps (ICD-10 - K63.5) 04/02/2025 Encounter for screening for malignant neoplasm [...] Insured Coverage Start Date Coverage End Date [facility] [address] [place], [place] [id number] PCP MARTY YE Self - patient is the insured 5 Medical (General) History Medical History History ICD Code type II diabetes restless leg syndrome hypertension dyslipidemia CAD Retinopathy and neuropathy IVA/CPAP CVA Surgical History Surgery Date(Month/Year) CABG 2019 carpal tunnel angioplasty
[2025-06-04 09:31] VITALS: BP 152/68; PULSE 64; O2SAT 98; BMI 28.6
--- NOTE | 2025-06-04 09:31 | A.OFFVIS_ITS ---
Vital Signs 06/04/25 09:31 Height 5 ft 6 in Weight 177 lb 7.554 oz BMI 28.6 BP 152/68 H Blood Pressure Location Lt brachial Position Sitting Pulse 64 Pulse Source Pulse Oximeter Pulse Oximetry (%) 98 Oxygen Delivery Method Room Air Intake Visit Reasons: iva Intake Note: pt is here for follow up and using the cpap. Switch Box Installer Required: No Allergies No Known Allergies (No Known Allergies*) Allergy (Verified 06/04/25 10:02) Medication List - Last Reconciled 06/04/25 by Oj Moreland MD aspirin 81 mg PO DAILY 90 days atorvastatin 80 mg PO DAILY 90 days blood sugar diagnostic (Digital Solid State Propulsionuch Ultra Test strips) Test Daily 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 meter (Tagorize Ultra2 Meter) As directed 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 sensor (myWebRoomyle Bret 3 Plus Sensor device) Apply 1 new sensor every 14 days as directed to monitor blood glucose continuously. 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,director athletic,cont (FreeStyle Bret 3 Cochran) as directed cholecalciferol (vitamin D3) 50 mcg PO DAILY 90 days CPAP (CPAP Machine/Device) As directed cyanocobalamin (vitamin B-12) 500 mcg PO DAILY empagliflozin (Jardiance) 25 mg PO DAILY 90 days ezetimibe 10 mg PO DAILY 90 days gabapentin 100 mg PO TID glucose (Dex4 Glucose Quick Dissolve) 16 grams (4 x 4 gram) PO Q15M PRN lancets (Radio RebelTouch Delica Lancets) As directed daily lisinopril 20 mg PO DAILY 90 days metformin 1,000 mg PO BID 90 days metoprolol tartrate 50 mg PO BID pen needle, diabetic (1st Tier Unifine Pentips) Use 1 pen needle once a day tirzepatide (Mounjaro) 5 mg (0.5 mL) subcut QWEEK Do you need a note to return to daycare/school/sports/work: No HPI HPI iva: Details: MARTY, 70 YEARS OLD GENTLEMAN IS HERE FOR FOLLOW-UP FOR HIS SLEEP APNEA AND USE OF CPAP. HE USES HIS CPAP VERY REGULARLY EVERY NIGHT. HE TENDS TO GO TO SLEEP SPLIT LATE SO HIS USAGE OF THE CPAP IS LITTLE BIT LESS THAN 4 HOURS PER NIGHT. HE DENIES ANY DAYTIME SLEEPINESS. HE HAS NO ISSUES WITH THE MASK OR CPAP DEVICE. [facility] Medical History Neuropathy Retinopathy HTN (hypertension) Type II diabetes mellitus with complication Onychomycosis Encounter for Medicare annual wellness exam Restless leg syndrome IVA (obstructive sleep apnea) Obesity (BMI 30-39.9) CAD (coronary artery disease) Dyslipidemia Diabetic polyneuropathy associated with type 2 diabetes mellitus Mild non proliferative diabetic retinopathy Essential hypertension Diabetes mellitus GERD (gastroesophageal reflux disease) Sleep apnea CVA (cerebral vascular accident) Surgical History History of angioplasty History of carpal tunnel release Hx of CABG History of surgery Family History Father Stroke Mother Hypertension Maternal Grandmother Ovarian cancer Maternal Aunt Ovarian cancer Brother Colon cancer Social History Housing: Apartment Are you a primary urgent care nurse practitioner to a significant other at home: No Do you presently have visiting nurse or other home services: No Alcohol intake: current Alcohol intake frequency: holidays/special occasions only Alcohol type: beer Patient Tobacco Use Status: Never used Tobacco e-Cigarette/Vaping Use: Never Used Second Hand Smoke Exposure: No service: No Current occupational status: retired Cognitive needs: No Hearing needs: No Vision needs: Yes Review of Systems Const All systems reviewed & are unremarkable except as noted in HPI and below Eyes Reports no additional complaints ENT Reports no additional complaints Card Reports no additional complaints Resp Reports no additional complaints GI Reports no additional complaints Reports no additional complaints Musc Reports no additional complaints Skin/Breast Reports system reviewed and no additional complaints, except as documented Neuro Reports no additional complaints Psych Reports no additional complaints Physical Exam Vital Signs: Last Vital Signs Pulse 64 06/04/25 09:31 BP 152/68 H 06/04/25 09:31 Pulse Ox 98 06/04/25 09:31 Oxygen Delivery Method Room Air 06/04/25 09:31 BMI result Body Mass Index 28.6 Const General: healthy appearing, comfortable, no acute distress, alert and awake Orientation/consciousness: patient oriented x3 HEENT Head: Yes normal to inspection General nose exam: No nasal polyps present and No nasal discharge present Face and sinus: Yes sinuses nontender Mouth: oropharynx normal Throat: Yes posterior oropharynx normal Eyes General: appearance normal, both eyes and all related structures Neck Neck: Yes normal visual inspection, Yes no lymphadenopathy, Yes trachea midline and Yes no JVD Thyroid: Thyroid normal Chest Chest palpation & inspection: normal inspection of the chest, normal palpation of entire chest wall and no tenderness Resp Effort & Inspection: normal respiratory effort Auscultation: clear to auscultation bilaterally Percussion: percussion normal Cardio Palpation: normal PMI Rate: regular rate Rhythm: regular rhythm Heart sounds: no gallops and no murmurs GI Palpation (GI): Soft to palpation, nontender, No hepatosplenomegaly present and no masses Auscultation: normal bowel sounds Back/Spine/Pelvis Thoracic/Lumbar Spine: thoracic and lumbar spine normal to inspection Skin General skin exam: no rashes or lesions noted Neuro General: patient oriented x3 and no focal motor deficits Cranial nerves: Yes CN's II-XII intact bilaterally Extrem General: Yes normal to inspection, Yes no clubbing, cyanosis or edema and Yes no calf tenderness Psych Appearance: grossly normal and well kempt Speech and movement: Normal speech and movement present Results Reviewed Results Reviewed: COMPLIANCE REPORT FOR THE LAST 30 NIGHTS REVIEWED AND HE HAS USED 29/30 NIGHTS. AVERAGE USE IT PER NIGHT IS 3 HOURS 48 MINUTES. PRESSURE HE MOSTLY 9-10 CM. THERE IS A SLIGHT AIR LEAK. RESIDUAL AHI 3.5 Assessment & Plan Assessment & Plan (1) IVA (obstructive sleep apnea): Comment: *He has well established diagnosis of obstructive sleep apnea since 30 years ago. Has been successfully treated with application of CPAP at night. HE IS USING HIS NEW CPAP MACHINE REGULARLY PRESSURE SETTING : AUTO PAP MODE 6- 20 CM . FF MASK COMPLIANCE IS EXCELLENT AND HE DEFINITELY BENEFITS FROM THE USE. HOWEVER HIS USAGE PER NIGHT IS LITTLE BIT LESS THAN 4 MINUTES. Code(s): G47.33 - Obstructive sleep apnea (adult) (pediatric) Category: Medical Plan: COMMENDED FOR GOOD COMPLIANCE AND ALSO EDUCATED THAT HE HAS TO USE THE CPAP FOR MORE THAN 4 HOURS EVERY NIGHT. AND IN FACT IF HE USES FOR 5 HOURS EVERY NIGHT AT WILL BE BETTER. Coding Level of Care Code Est Pt Level 3 (13992) Diagnoses IVA (obstructive sleep apnea) G47.33
== END 2025-06-04 10:03 | disposition home or self-care (01) ==
PROVIDERS: PCP Internal Medicine; Visit Provider Internal Medicine
DX: G47.33 Obstructive sleep apnea (adult) (pediatric) (principal)
CPT/HCPCS: 99213

== ENCOUNTER → 2025-06-04 09:08 | Outpatient (BNVA) | payer MEDICARE, MEDICAID, SELFPAY | PROVIDERS: PCP Internal Medicine; Visit Provider Internal Medicine | DX: G47.33 Obstructive sleep apnea (adult) (pediatric) (principal) | CPT/HCPCS: 99212 ==

== ENCOUNTER 2025-09-26 07:30 | Outpatient (REF) | payer MEDICARE, MEDICAID, SELFPAY ==
--- OUTSIDE RECORDS SUMMARY | 2024-12-25 10:15 | XMS_ITS ---
Author Organization [facility] Address [address] [place] [address] Care Team Providers Care Director Systems Name Role Phone Netta Benson Primary Care Provider Nishant Grigsby Jr REASON FOR VISIT Patient presents today for a colon screening Encounters Encounter Location Date Provider Diagnosis [facility] [address] [place] [address] 12/25/2024 Nishant Abreu Jr Plan Of Treatment No Information Progress Notes * JANA YEOB:[birth year] (70 yo M)Acc No.[id number]:12/25/2024 Progress Notes Patient: MARTY HASTINGS Provider: Dominick Abreu MD :1955 A ge:69 Y S ex:Male Date:12/25/2024 Address:[address] [place], [place] [id number] Pcp:Netta Zamora Subjective: * Chief Complaints: * 1 . Patient presents today for a colon screening. * Medical History: Objective: * Vitals: Assessment: Plan: * Treatment: * * The named appointment provid er may or may not be the originator of this progress note, and it is not deemed complete until electronically signed by the appointment provider. Sign off status: Pending * Provider: Dominick Abreu MD Date: 0 12/25/2024 Generated for Leanne rollins/Jordin/eTransmitting on: 1 11/26/2024 07:33 AM EST
--- OUTSIDE RECORDS SUMMARY | 2025-05-05 03:20 | XMS_ITS ---
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 Name Role Phone Netta Benson Primary Care Provider Nishant Grigsby Jr REASON FOR VISIT screening colonoscopy Encounters Encounter Location Date Provider Diagnosis [facility] Outpatient [address] [place] [phone] 05/05/2025 Nishant Abreu Jr Colon cancer screening Z12.11 and Colon polyps K63.5 Assessments Encounter Date Diagnosis (ICD Code) Assessment Notes Treatment Notes Treatment Clinical Notes Section Notes 05/05/2025 Colon cancer screening (ICD-10 - Z12.11) 05/05/2025 Colon polyps (ICD-10 - K63.5) Plan Of Treatment No Information Progress Notes * ART YE[birth year]ODOB:[birth year] (70 yo M)Acc No.[id number]:05/05/2025 COLON WITH MAC Patient: [place] HASTINGS Provider: Dominick Abreu MD :1955 A ge:70 Y S ex:Male Date:05/05/2025 Address:[address] [place], [place] [id number] Pcp:Netta Zamora Subjective: * Chief Complaints: * 1 . Screening colonoscopy. * Medical History: Objective: * Vitals: Assessment: * Assessment: 1. C olon cancer screening - Z12.11 (Primary) 2 . C olon polyps - K63.5? Plan: * Treatment: * Procedure Codes: 4 5380 COLONOSCOPY AND BIOPSY, 0529F INTRVL 3+YRS PTS CLNSCP DOCD * * The named appointment provid er may or may not be the originator of this progress note, and it is not deemed complete until electronically signed by the appointment provider. Sign off status: Pending * Provider: Dominick Abreu MD Date: 0 05/05/2025 Generated for Leanne rollins/Jordin/Alessiaitting on: 1 11/26/2024 07:33 AM EST
--- OUTSIDE RECORDS SUMMARY | 2025-09-26 07:34 | XMS_ITS | Patient Health Record ---
Author Organization [facility] Address [address] [place] [address] Care Team Providers Care Facility Maintenance Technician Name Role Phone Netta Benson Primary Care Provider Nishant Grigsby Jr Unavailable Allergies No Known Allergies Results Component Value Reference Range Notes Pathology Reviewed date:05/19/2025 04:05:48 PM Interpretation: Performing Lab:[facility], [address] [place] [phone] Notes/Report: Reason For Referral No Information Medications [...] Problem Screening for malignant neoplasm of colon (810243833) Encounter for screening for malignant neoplasm of colon (Z12.11) Active confirmed Problem H/O: high risk medication (365444051) High risk medication use (Z79.899) Active confirmed Vital Signs Blood pressure diastolic 77 mm Hg 04/02/2025 Height 66 in 04/02/2025 Blood pressure systolic 111 mm Hg 04/02/2025 Weight 178 lbs 04/02/2025 BMI 28.73 kg/m2 04/02/2025 Encounters Encounter Location Date Provider Diagnosis [facility] [place] Out[place] [address] [place] [phone] 05/05/2025 Nishant Abreu Jr Colon cancer screening Z12.11 and Colon polyps K63.5 [facility] [address] [place] [phone] 04/02/2025 Nishant Abreu Jr Encounter for screening for malignant neoplasm of colon Z12.11 ; Encounter for other preprocedural examination Z01.818 and High risk medication use Z79.899 [facility] [address] [place] [phone] 12/24/2024 Nishant Abreu Jr [facility] [address] [place] [phone] 04/02/2025 Nishant Abreu Jr [facility] [address] [place] [phone] 04/03/2025 Nishant Abreu Jr [facility] [address] [place] [phone] 05/19/2025 Nishant Abreu Jr Assessments Encounter Date [...] Insured Coverage Start Date Coverage End Date [facility] [address] [place], [place] [id number] PCP MARTY YE Self - patient is the insured 5 Medical (General) History Medical History History ICD Code type II diabetes restless leg syndrome hypertension dyslipidemia CAD Retinopathy and neuropathy IVA/CPAP CVA Surgical History Surgery Date(Month/Year) CABG 2019 carpal tunnel angioplasty
[2025-09-26 09:51] LABS: Alanine Aminotransferase 17 U/L (0-40); Aspartate Amino Transferase 24 U/L (5-37); Cholesterol 109 mg/dL (<200); Estimated Glomerular Filt Rate > 60; HDL Cholesterol 52 mg/dL (>40); Triglycerides 52 mg/dL (<150)
[2025-09-26 10:23] LABS: Vitamin B12 771 pg/mL (200-900)
== END 2025-09-26 07:31 | disposition home or self-care (01) ==
LOC: HO.LAB 07:30
PROVIDERS: Absent Provider Internal Medicine; PCP Internal Medicine; Visit Provider Physician Assistant Medical
DX: I25.10 Atherosclerotic heart disease of native coronary artery without angina pectoris (principal); E11.9 Type 2 diabetes mellitus without complications; I10 Essential (primary) hypertension; E78.5 Hyperlipidemia, unspecified; Z91.89 Other specified personal risk factors, not elsewhere classified
CPT/HCPCS: 36415; 80061; 82565; 82607; 84450; 84460

== ENCOUNTER 2025-10-05 15:05 | Outpatient (AMB) | payer MEDICARE, MEDICAID, SELFPAY ==
[2025-10-05 16:45] VITALS: BP 118/70; PULSE 71; O2SAT 98; BMI 29.0
--- NOTE | 2025-10-05 16:45 | MHC.PC.OV ---
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 Ultra2 Meter) As directed 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 sensor (dotloopStyle Bret 3 Plus Sensor device) Apply 1 new sensor every 14 days as directed to monitor blood glucose continuously. 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,technology analyst,cont (FreeStyle Bret 3 [place]) as directed cholecalciferol (vitamin D3) 50 mcg PO DAILY 90 days CPAP (CPAP Machine/Device) As directed cyanocobalamin (vitamin B-12) 500 mcg PO DAILY empagliflozin (Jardiance) 25 mg PO DAILY 90 days ezetimibe 10 mg PO DAILY 90 days gabapentin 100 mg PO TID glucose (Dex4 Glucose Quick Dissolve) 16 grams (4 x 4 gram) PO Q15M PRN lancets (6fusionuch Delica Lancets) As directed daily lisinopril 20 mg PO DAILY 90 days metformin 1,000 mg PO BID 90 days metoprolol tartrate 50 mg PO BID pen needle, diabetic (1st Tier Unifine Pentips) Use 1 pen needle once a day tirzepatide (Mounjaro) 5 mg (0.5 mL) subcut QWEEK Tobacco use date assessed: 02/03/25 Fall risk assessment: No Falls in past year Last assessed Fall Risk: 10/05/25 Dental Screening Dental Screen Date: 02/03/25 HPI HPI Comments History of Present Illness Details The patient is a 70-year-old male presenting for an annual physical examination. He has a history of type 2 diabetes with a recent A1c of 7.4. His diabetes medications include metformin 1000 mg, Jardiance, and Mounjaro 5 mg, and he is followed by endocrinology. His hypertension is controlled, with blood pressure at goal, on lisinopril 20 mg and metoprolol. His hyperlipidemia is also at goal, with an LDL less than 70, managed with atorvastatin 80 mg and ezetimibe 10 mg. He also takes aspirin. Other medical history includes the use of a CPAP machine for sleep apnea. He takes gabapentin 100 mg three times a day, vitamin D, and vitamin B12. He has no known drug allergies. In terms of health maintenance, the patient completed a colonoscopy this year. His father is from a cause other than a stroke. [facility] Medical History Neuropathy Retinopathy HTN (hypertension) Type II diabetes mellitus with complication Onychomycosis Encounter for Medicare annual wellness exam Restless leg syndrome IVA (obstructive sleep apnea) Obesity (BMI 30-39.9) CAD (coronary artery disease) Dyslipidemia Diabetic polyneuropathy associated with type 2 diabetes mellitus Mild non proliferative diabetic retinopathy Essential hypertension Diabetes mellitus GERD (gastroesophageal reflux disease) Sleep apnea CVA (cerebral vascular accident) Surgical History History of angioplasty History of carpal tunnel release Hx of CABG History of surgery Family History Father Stroke Mother Hypertension Maternal Grandmother Ovarian cancer Maternal Aunt Ovarian cancer Brother Colon cancer Social History Housing: Apartment Are you a primary early breastfeeding care specialist to a significant other at home: No Do you presently have visiting nurse or other home services: No Alcohol intake: current Alcohol intake frequency: holidays/special occasions only Alcohol type: beer Patient Tobacco Use Status: Never used Tobacco Tobacco use type: Cigarette e-Cigarette/Vaping Use: Never Used Second Hand Smoke Exposure: No service: No Current occupational status: retired Cognitive needs: No Hearing needs: No Vision needs: Yes Questionnaire PHQ-9 Over the last 2 weeks, how often have you been bothered by any of the following problems? 1. Little interest or pleasure in doing things: not at all 2. Feeling down, depressed, or hopeless: not at all 3. Trouble falling or staying asleep, or sleeping too much: not at all 4. Feeling tired or having little energy: not at all 5. Poor appetite or overeating: not at all 6. Feeling bad about yourself - or that you are a failure or have let yourself or your family down: not at all 7. Trouble concentrating on things, such as reading the newspaper or watching television: not at all 8. Moving or speaking so slowly that other people could have noticed. Or the opposite - being so fidgety or restless that you have been moving around a lot more than usual: not at all 9. Thoughts that you would be better off or of hurting yourself in some way: not at all Total score: 0 Depression Screening Interpretation: Negative Depression Screening Done: Yes 84572 - PHQ-9 Billing: Yes Source: Developed by Drs. Pete Hampton, Tamiko Zhao, Edd Cuenca and colleagues, with an educational bartolome from [employer]. Thrive Questionnaire Date Thrive assessed: 02/03/25 NICKI-7 AMB Questionnaire NICKI-7 Date NICKI - 7 assessed: 02/03/25 Source: Developed by Drs. Pete Hampton, Tamiko Zhao, Edd Cuenca and colleagues, with an educational bartolome from [employer]. Review of Systems Const All systems reviewed & are unremarkable except as noted in HPI and below Card Denies chest pain at rest, Denies chest pain with activity, Denies edema, Denies irregular heart rhythm, Denies claudication, Denies dyspnea, Denies dyspnea on exertion, Denies orthopnea, Denies paroxysmal nocturnal dyspnea and Denies slow heart rate Resp Denies cough, Denies dyspnea and Denies dyspnea on exertion Physical exam (Primary Care) Vital Signs: Last Vital Signs Pulse 71 10/05/25 16:45 BP 118/70 10/05/25 16:45 Pulse Ox 98 10/05/25 16:45 Oxygen Delivery Method Room Air 10/05/25 16:45 BMI result Body Mass Index 29.0 Tobacco/Smoking Status: Tobacco use Status Tobacco use date assessed 02/03/25 10/05/25 16:46 Patient Tobacco Use Status Never used Tobacco 10/05/25 16:46 Tobacco use type Cigarette 10/05/25 16:46 e-Cigarette/Vaping Use Never Used 10/05/25 16:46 PHQ-9: PHQ-9 Score PHQ-9: Total score 0 10/05/25 17:07 Depression Screening Interpretation: Negative Thrive Assessment: Date of Thrive Assessment Date Thrive assessed 02/03/25 10/05/25 16:46 HENMT Head: Yes normal to inspection, Yes normocephalic and Yes atraumatic Ears: external ears normal Eyes General: appearance normal, both eyes and all related structures Eyelids: Yes eyelids normal Conjunctivae: conjunctivae normal Neck Neck: Yes normal visual inspection and Yes supple Resp Effort & Inspection: normal respiratory effort Auscultation: clear to auscultation bilaterally Cardio Jugular venous distension: no JVD Rate: regular rate Rhythm: regular rhythm Heart sounds: S1 normal heart sound present and S2 normal heart sound present GI Inspection: Yes normal to inspection Palpation (GI): Soft to palpation and nontender Auscultation: normal bowel sounds Skin General skin exam: no rashes or lesions noted Neuro General: no focal motor deficits Extrem General: Yes full ROM Psych Appearance: grossly normal Office Procedures Flu Questionnaire Does the patient have a severe egg allergy?: No Does the patient have severe life threatening allergies?: No Does the patient have a fever or illness today?: No Has the patient ever had Guillain-[place] Syndrome?: No Has the patient ever had any past reaction to a flu shot?: No Results AMB Hemoglobin A1c AMB Hemoglobin A1c 7.4 % Last Edit by Florence Tang CMA on 10/05/25 17:00 Immunizations Fluarix [id number] (PF) 45 mcg (15 mcg x 3)/0.5 mL IM syringe Performing Provider: Netta Zamora MD [place] [facility] [place] [facility] Administered by: Florence Tang CMA on 10/05/25 17:07 Dose Route Admin Location Dispensed Lot Number Expiration Date NDC Cavity Pump Operator 0.5 mL IM Left Deltoid 0.5 mL [id number] 05/18/26 82399-249-15 Acheive CCA VIS Given Date VIS Provided VIS Publication Date 10/05/25 Single Vaccine 24 Eligibility Eligibility Date Funding Source Not [facility] Eligible 10/05/25 Private Results Reviewed Results Reviewed: Laboratory Last Values Hgb A1c (Clinic) 7.4 % (4.0-6.0) H 10/05/25 16:46 Coding Level of Care Code Est Pt Prev Care >65y(67492) Diagnoses Physical exam Z00.00 Type 2 diabetes mellitus without complication, without long-term current use of insulin E11.9 Diabetes mellitus type: type 2 Diabetes mellitus detention insulin use: without rat exterminator use Diabetes mellitus complication status: without complication Additional Codes PHQ-9 - 98140 - PHQ-9 Billing: Yes ([id number]) Time Spent (min) 30 Assessment & Plan Assessment & Plan (1) Physical exam: Code(s): Z00.00 - Encounter for general adult medical examination without abnormal findings Category: Medical (2) Diabetes mellitus: Code(s): E11.9 - Type 2 diabetes mellitus without complications Category: Medical Qualifiers: Diabetes mellitus type: type 2 Diabetes mellitus detention insulin use: without detention use Diabetes mellitus complication status: without complication Qualified Code(s): E11.9 - Type 2 diabetes mellitus without complications Plan Plan 1. Physical exam Repeat in a year. 2. Type 2 Diabetes Mellitus Recent A1c is elevated at 7.4. The patient is co-managed with endocrinology. Continue current medications, including metformin, Jardiance, and Mounjaro. Orders: Orders Influenza [id number] Immunization Today Z23 - Encounter for immunization Vitamin B12 and Folate 4 Months E53.8 - Deficiency of other specified B group vitamins Microalbumin, Random (w Creat) 4 Months R80.9 - Proteinuria, unspecified Comprehensive [place]. Panel Fast 4 Months E11.9 - Type 2 diabetes mellitus without complications AMB Hemoglobin A1c Today Z13.9 - Encounter for screening, unspecified Vitamin D 25-OH Total 4 Months E55.9 - Vitamin D deficiency, unspecified Lipid Panel 4 Months E78.5 - Hyperlipidemia, unspecified
== END 2025-10-05 17:11 | disposition home or self-care (01) ==
LOC: HO.HMCH 15:06
PROVIDERS: PCP Internal Medicine; Visit Provider Internal Medicine
DX: Z00.00 Encounter for general adult medical examination without abnormal findings (principal); E11.9 Type 2 diabetes mellitus without complications; Z13.9 Encounter for screening, unspecified; Z23 Encounter for immunization

== ENCOUNTER → 2025-10-05 15:05 | Outpatient (BNVA) | payer MEDICARE, MEDICAID, SELFPAY | PROVIDERS: PCP Internal Medicine; Visit Provider Internal Medicine | DX: Z00.00 Encounter for general adult medical examination without abnormal findings (principal); E11.9 Type 2 diabetes mellitus without complications; Z13.31 Encounter for screening for depression; Z23 Encounter for immunization | CPT/HCPCS: 83036; 90471; 90656; 96127; 99397 ==